=== PATIENT | male | born 1960 | race Caucasian/White ===

== ENCOUNTER → 2017-10-15 09:51 | Outpatient (CLI) | payer MEDICARE, MEDICAID, SELFPAY ==
[2017-10-15 11:49] LABS: ALB/GLOB Ratio 1.3 RATIO (0.9-2.4); AST(SGOT) 17 U/L (15-37); Alanine Aminotransfer ALT/SGPT 22 U/L (16-61); Albumin, Serum 3.9 g/dL (3.2-5.0); Alkaline Phosphatase 54 U/L (45-117); Anion Gap 5 (5-15); BUN 20 mg/dL (7-18); BUN/Creat Ratio 17.1 RATIO (10-20); Calcium,Total 9.9 mg/dL (8.5-10.1); Chloride 106 mmol/L (98-107); Creatinine, Serum 1.17 mg/dL (0.70-1.30); EST Glomerular Filtration Rate 69 mL/min (>60); Est Glom Filt Rate - Afr Amer 83 mL/min (>60); Glucose 107 mg/dL (74-106); Microalbumin:Creatinine Ratio 145.7 mg/g CRE (<30 mg/g CRE); Potassium 4.3 mmol/L (3.5-5.1); Protein, Total 6.9 g/dL (6.4-8.2); Sodium Level 139 mmol/L (136-145)
[2017-10-15 11:55] LABS: Hemoglobin A1c 7.8 % (4.2-6.3)
== END ==
PROVIDERS: Family Provider Family Medicine; PCP Family Medicine; Visit Provider Nurse Practitioner
DX: E11.9 Type 2 diabetes mellitus without complications (principal)
CPT/HCPCS: 36415; 80053; 82043; 82570; 83036

== ENCOUNTER → 2018-05-26 12:27 | Outpatient (CLI) | payer MEDICARE, MEDICAID, SELFPAY ==
[2018-05-26 11:24] VITALS: BMI 26.5
[2018-05-26 13:17] LABS: Hemoglobin A1c 7.4 % (4.2-6.3)
[2018-05-26 13:40] LABS: Cholesterol 153 mg/dL (200); Free T3 2.9 pg/mL (2.18-3.98); High Density Lipoprotein 59 mg/dL; T4 Free Direct 0.77 ng/dL (0.76-1.46); Triglycerides 89 mg/dL; Very Low Density Lipoprotein 18 mg/dL (5-40)
[2018-05-26 14:11] LABS: Microalbumin,Random Urine 59.9 mg/L (NO RANGE EST.); Microalbumin:Creatinine Ratio 77.4 mg/g CRE (<30 mg/g CRE)
--- OUTSIDE RECORDS SUMMARY | 2018-07-12 14:53 | XMS RPT_ITS ---
:1960 Author Organization OHIP Support Name Relationship Address Phone D Unavailable Unavailable Unavailable REY QUISPE Unavailable [address] + [place] [address] D Unavailable Unavailable Unavailable REY QUISPE Unavailable [address] + [place] [address] D Unavailable Unavailable Unavailable QUISPEREY Unavailable [address] + [place] [address] D Unavailable Unavailable Unavailable REY QUISPE Unavailable [address] + [place] [address] NOT GIVEN Unavailable Unavailable Unavailable MALIKREY SIERRAET Unavailable [address] + [place] [address] ONEIDA QUISPE Unavailable Unavailable Unavailable CAPRI VELEZ Unavailable Unavailable + D Unavailable Unavailable Unavailable REY QUISPE Unavailable [address] + [place] [address] NOT GIVEN Unavailable Unavailable Unavailable REY GANET Unavailable [address] + [place], [place] [id number] ONEIDA QUISPE Unavailable Unavailable Unavailable CAPRI VELEZ Unavailable Unavailable + D Unavailable Unavailable Unavailable REY QUISPE Unavailable [address] + [place] [address] D Unavailable Unavailable Unavailable REY QUISPE Unavailable [address] + [place] [address] D Unavailable Unavailable Unavailable REY QUISPE Unavailable [address] + [place] [address] Care Team Providers Name Role Phone Physician, No PCP Primary Care Unavailable LUAN GREEN Admitting Unavailable IGNACIO CABRALES Attending Unavailable JOVANNY RECINOS Attending Unavailable RECINOS, JOVANNY Primary Care Unavailable RECINOS, JOVANNY Attending Unavailable RECINOS, JOVANNY Primary Care Unavailable RECINOS, JOVANNY Attending Unavailable RECINOS, JOVANNY Primary Care Unavailable BATHINI, MATTEO Attending Unavailable RECINOS, JOVANNY Primary Care Unavailable BATHJOJO, MATTEO Attending Unavailable RECINOS, JOVANNY Primary Care Unavailable VACCARIELLO, CARLITO SELF Attending Unavailable Physician, PCP Unknown Primary Care Unavailable VACCARIELLO, CARLITO SELF Attending Unavailable SHERLY HERNANDEZ Admitting Unavailable MARY, SHERLY NOVA Attending Unavailable MARY, SHERLY NOVA Referring Unavailable Physician, No PCP Primary Care Unavailable KAYE GAUTHIER Attending Unavailable Physician, No PCP Primary Care Unavailable SHERLY HERNANDEZ Admitting Unavailable MARY, SHERLY NOVA Attending Unavailable MARY, SHERLY NOVA Referring Unavailable Physician, No PCP Primary Care Unavailable MARY, SHERLY NOVA Admitting Unavailable MARY, SHERLY NOVA Attending Unavailable MARY, SHERLY NOVA Referring Unavailable Physician, No PCP Primary Care Unavailable VACCTAYAELLO, CARLITO Admitting Unavailable VACCARIELLO, CARLITO Attending Unavailable VACCARIELLO, CARLITO Primary Care Unavailable VACCARIELLO, CARLITO Consulting Unavailable PROVIDER, UNKNOWN Consulting Unavailable PROVIDER, UNKNOWN Consulting Unavailable PROVIDER, UNKNOWN Consulting Unavailable LUIS E TONY DO Admitting Unavailable LUIS E TONY DO Attending Unavailable LUIS E TONY DO Primary Care Unavailable VACCARIELLO, CARLITO Consulting Unavailable VACCARIELLO, CARLITO Referring Unavailable PROVIDER, UNKNOWN Consulting Unavailable PROVIDER, UNKNOWN Consulting Unavailable PROVIDER, UNKNOWN Consulting Unavailable SHERLY HERNANDEZ Attending Unavailable RECINOS III, JOVANNY F Referring Unavailable SHERLY HERNANDEZ Attending Unavailable SELF, SELF Referring Unavailable Kaye Gauthier CHUCKING MACHINE OPERATOR-C Attending Unavailable Vaccariello, Carlito Referring Unavailable ShoKaye salazar CHUCKING MACHINE OPERATOR-C Attending Unavailable ShoKaye salazar CHUCKING MACHINE OPERATOR-C Referring Unavailable Vaccariello, Carlito Primary Care Unavailable Kaye Gauthier CHUCKING MACHINE OPERATOR-C Attending Unavailable Vaccariello, Carlito Referring Unavailable Kaye Gauthier CHUCKING MACHINE OPERATOR-C Attending Unavailable Vaccariello, Carlito Referring Unavailable ShoKaye salazar CHUCKING MACHINE OPERATOR-C Attending Unavailable ShoKaye salazar CHUCKING MACHINE OPERATOR-C Attending Unavailable Vaccariello, Carlito Referring Unavailable Vaccariello, Carlito Primary Care Unavailable Kaye Gauthier CHUCKING MACHINE OPERATOR-C Attending Unavailable Vaccariello, Carlito Primary Care Unavailable Kaye Gauthier CHUCKING MACHINE OPERATOR-C Attending Unavailable Vaccariello, Carlito Referring Unavailable Vaccariello, Carlito Primary Care Unavailable PROBLEMS PROBLEMS DATE TYPE CONDITION / CODE ATTENDING STATUS SOURCE 06/30/2018 Final Diagnosis TRAUMAT SUBDURAL MARY Bryce Jenners (Discharge) HEMOR W / [facility] S06.5X0D(ICD-10) Repository 06/30/2018 Final Diagnosis UNS SX SIGNS COG Bryce HERNANDEZmel (Discharge) FUNC / [facility] R41.9(ICD-10) Repository 06/30/2018 Final Diagnosis OTHER ABNORMALITIES MARY Bryce Jenners (Discharge) GAIT / [facility] R26.89(ICD-10) Repository 05/26/2018 Unknown E11.9 - Type 2 Kaye Gauthier Active Rhonda diabetes mellitus CHUCKING MACHINE OPERATOR-C [facility] complications / Repository E11.9(ICD-10) 05/26/2018 Unknown E10.65 - Type 1 ShookKaye Active Rhonda diabetes mellitus CHUCKING MACHINE OPERATOR-C [facility] / E10.65(ICD-10) Repository 04/09/2018 Admitting Unknown / KAYE GAUTHIER Active [facility]Unknown[facility] Repository 04/09/2018 Final Diagnosis TYPE 2 DM WITHOUT SHOKAYE SALAZAR Active Felicity Rodriguez (Discharge) COMPLI / Health System E11.9(ICD-10) Repository 03/09/2018 Admitting Follow-up / 145() Bryce HERNANDEZ [facility] diagnosis [facility] PROCEDURES PROCEDURES No Procedure Records FoundRESULTS RESULTS ENDOCRINOLOGY VISIT Observed: 07/01/2018 Status: F Source: [place] REPORT 12:40 PM [facility] REPOSITORY [facility] [address] [place] [address]. [address] [place] [address] OFFICE VISIT Date of Service: 07/01/18 MR#: [id number] Acct: [id number] Name: YUNIOR QUISPE Rep #: [id number] : 1960 Provider: Kaye Gauthier NP Age/Sex: 57/M Location: [facility] [place] Status: Signed HPI History of present illness Yunior Quispe is a 57 year old male who presents for follow up of diabetes type 1. Diagnosed at age 7. Has initiated insulin pump therapy. 670g. Patient reports BG improved. Did work on carb counting and using bolus wizard for all insulin doses. He feels BG have improved since last visit. Did have a couple of low BG but not severe and was able to treat himself. Time of Day Basal Rate 12m 1.05 7am 1.10 11am 1.20 2p 1.10 6p 1.20 10p 1.05 I/C 8 ISF 30 At time of visit: -Pt denies symptoms of hypertensive emergency (CP,SOB,CURRIE, or blurred vision) and hypotension(dizziness or lightheadedness) -Pt denies symptoms of hypoglycemia ( sweaty, confusion, anxiety, tremor, hunger, palpitations) and hyperglycemia ( polydipsia, polyuria) -Pt denies potential medication adverse effect with exception of erectile dysfunction. Hypoglycemia Aware of hypoglycemia: When awake Able to self treat low BG: Yes Frequent low Blood sugar: afternoons around 4-5pm Has supply of glucagon: Yes Diet Healthy Eats three meals daily and occ snacks Does carb count. SMBG am 70 -[id number] 12n 53-200 5pm 62-200 9p 94-200 Exam Const General: comfortable, no acute distress, well hydrated Nutritional Appearance: average body habitus Orientation: oriented x3 HENMT Head: normal to inspection, atraumatic Ears: hearing grossly normal bilaterally Nose: no nasal discharge Mouth: oral mucosae normal, moist mucous membranes Teeth and gingiva: dentition normal Eyes General: appearance normal, both eyes and all related structures Conjunctivae: conjunctivae normal Sclera: sclerae normal Pupils: PERRL Neck Neck: normal visual inspection Neck mass: No Chest Chest palpation AND inspection: deferred Resp Effort AND Inspection: normal respiratory effort, able to speak in complete sentences, symmetric chest movement Auscultation: Bilateral: Clear to Auscultation Cardio Rate: regular rate Rhythm: regular rhythm Heart Sounds: S1 normal, S2 normal GI Inspection: normal to inspection Auscultation: normal bowel sounds Palpation: soft, no guarding Musc Thoracic/Lumbar Spine: thoracic and lumbar spine normal to inspection Skin General: no rashes or lesions noted Wounds: no wounds Diabetic Foot Pulses: L dorsalis pedis pulse: normal Monofilament test: Left foot: abnormal, Right foot: abnormal Neuro General: gait normal Cognition: normal cognition Speech: speech normal Motor: muscle tone normal throughout Extrem General: full ROM, normal to inspection, pedal edema Psych Appearance: grossly normal Mood: congruent mood Affect: normal affect Speech and Movement: speech and movement normal Attitude: cooperative Thought Process: normal Thought Content: normal Judgment: good Type: type 1, insulin-requiring Glucose control symptoms: Reports daytime hypoglycemia Weight and fatigue symptoms: Denies snoring Cardiopulmonary symptoms: Denies chest pain at rest, dyspnea on exertion, lightheadedness or myalgias GI symptoms: Reports nausea/dyspepsia; denies constipation, diarrhea or vomiting Skin and extremity symptoms: Denies erectile dysfunction Other symptoms: Denies blurry vision or change in vision Pertinent visit history: Denies recent visit to ER, recent hospital admission or recent 911 calls Self monitoring: Yes Dietary compliance: Diabetes: good Diabetes education in past year: Yes Sick day education - understands ketone testing: Yes Physical activity: regular Intake Vital Signs07/01/18 Body Mass Index (BMI) 26.5 Intake Visit Reasons: Diabetes follow-up Patient Account Specialist Required: No Accompanied by: Self Allergies acetaminophen [From Vicodin] Allergy (Severe, Verified 07/01/18 09:13) Unknown hydrocodone [From Vicodin] Allergy (Severe, Verified 07/01/18 09:13) Unknown Medications carvedilol 6.25 mg tablet 6.25 mg PO QDAY tab 06/25/17 [History Confirmed 07/01/18] chromium picolinate 1,000 mcg tablet 1,000 mcg PO QDAY tab 06/25/17 [History Confirmed 07/01/18] hydrochlorothiazide 12.5 mg capsule 12.5 mg PO QDAY 07/02/17 [History Confirmed 07/01/18] losartan 100 mg tablet 100 mg PO QDAY 07/02/17 [History Confirmed 07/01/18] omeprazole magnesium 20 mg tablet,delayed release 20 mg PO QDAY tab 07/02/17 [History Confirmed 07/01/18] ranitidine 150 mg capsule 150 mg PO BID cap 07/02/17 [History Confirmed 07/01/18] blood sugar diagnostic strips See Dose Instructions .ROUTE .MEDSUPPLY #240 ea 05/20/18 [Rx Confirmed 07/01/18] insulin aspart U- 100 100 unit/mL subcutaneous solution See Rx Instructions SC DAILY #30 ml 05/20/18 [Rx Confirmed 07/01/18] Nurse's Note: blood sugars : low : 45 high : 411 [facility] Medical History Back problem (Acute) Carpal tunnel syndrome (Acute) Diabetes type 1, controlled (Acute) Fall (Acute) Head injury (Acute) Kidney stones (Acute) Low calcium levels (Acute) Neuropathy (Acute) HTN (hypertension) (Chronic) Surgical History H/O colonoscopy (Acute) Social History Smoking Status: Former smoker second hand exposure: No alcohol intake: current substance use type: does not use ROS Const Constitutional: No anorexia, body ache, chills, fatigue, fever(s), frequent falls, decreased energy, malaise, night sweats, weakness, weight change, sleep problems, abnormal sleep pattern, change in appetite, other, headache(s), snoring or excessive sweating Eyes Eyes: No blurry vision, change in vision, double vision, discharge, dry eyes, bulging eyes, floaters, visual disturbances, eye pain, light sensitivity, spots in vision, tunnel vision or other ENT ENT: No abnormal hearing, ear pain, ear discharge, ear pressure, hearing loss, tinnitus, dizziness/vertigo, balance problems, nosebleed/epistaxis, nasal congestion, nasal obstruction, nose pain, sinus pressure, sinus pain, nasal discharge, post nasal drip, headache(s), facial pain, dental pain, dry mouth, bad breath, hoarseness, lip swelling, mouth lesions, mouth pain, sore throat, tongue swelling, throat swelling, other, difficulty swallowing or neck pain Resp Respiratory: No cough, change in phlegm color, chest congestion, excessive phlegm production, hemoptysis, pain on inspiration, shortness of breath, pain with cough, snoring, stridor, wheezing or other Cardio Cardiology: No chest pain at rest, chest pain with exertion, leg pain with exertion, excessive sweating, shortness of breath, dyspnea on exertion, generalized swelling, irregular heart rhythm, lightheadedness, orthopnea, radiating jaw, neck or arm pain, fast heart rate, slow heart rate, palpitations or other Gastro GI: Positive for nausea/dyspepsia; no abdominal pain, belching, bloating, change in bowel habits, change in stool character, coffee ground emesis, constipation, cramping, diarrhea, heartburn, difficulty swallowing, feeling full early, excessive flatus, incontinent of stools, Vomiting blood/hematemesis, blood in stool, loose stools, Black,tarry stools, pain with swallowing, vomiting or other Genitourinary Male: No difficulty urinating, burning urination, painful urination, urinary incontinence, urinary frequency, urinary urgency, urinary hesitancy, urinary retention, blood in urine, Frequent nighttime urination/ nocturia, post void dribbling, suprapubic fullness, side pain, sexual problems, genital lesions, genital itching, erectile dysfunction, penile discharge, difficulty with ejaculations, blood in semen, scrotal swelling, testicle lump, testicle pain or other Musc Musculoskeletal: No abnormal walking, joint pain, back pain, deformity, joint swelling, limited range of motion, loss of height, muscle cramps, muscle weakness, decreased muscle mass, body aches, neck pain, numbness, radiating pain into limb, stiffness, tingling or other Skin Skin: No acne, hair loss, change in hair, nail changes, boil, change in skin color, dry skin, redness, excessive hair growth, yellowing of the skin, lesions, itching, rash, skin pain, skin ulcer, sores, skin swelling, wounds or other Breast Breast: No other Neuro Neurology: No frequent falls, weakness, visual disturbances, abnormal hearing, headache(s), abnormal walking, numbness or tingling Psych Psychiatric: No abnormal sleep pattern, No change in appetite Endo Endocrine: No fatigue, other or excessive sweating Aller/Imm Allergy/Immunologic: No lip swelling, tongue swelling, throat swelling, wheezing or itchy eyes Assessment AND Plan 1. Diabetes mellitus E11.9 Plan Type 1 diabetes mellitus with microalbuminuria Plan Patient feels he is doing well with the insulin pump therapy. Is able to utilize without issue. He is currently checking in pairs. He does report he is not adding any insulin into the pump when he determines he wants more insulin than the pump is giving.He is not telling the pump erronous information Since the patient is givng the pump accurate information it is obvious that lunch is being over bolused. Will make change to avoid low BG. Also has a drop in BG during late night hours when he snacks and takes bolus for the carbs. Spent time with patient to review I/C ratios as well as ISF so that he understands how these numbers are determined and what makes it important to adjust. Patient ask to put true data into his pump when giving insulin. Renal function good A1c 7.4 Chol controlled. Patient Instructions BG before meals and 2 hours post meal Check BG with any low BG you have for review later. Carb count needs to be specific. Patient Instructions Sumeet made I/C ratio 12m=10 7am=8 11am=10 4pm=8 8pm=10 Continue intensive BG monitoring. Continue to count carbs carefully. Monitor new settings for adequate coverage. Plan Detail Additional Comments 1. Please schedule follow up in 6 weeks. 2. Lab work one week before appointment. 3. Discussed importance of regular exercise and recommend starting or continuing a regular exercise program for good health. 4. The patient was encouraged to lose weight for good health 5. The importance of monitoring blood sugar regularly was reviewed. 6. The importance of monitoring the HBA1c level regularly was reviewed. 7. The importance of prper foot care and regularly checking feet to prevent sores and loss of limbs was reviewed. 8. The importance of keeping BP at or below 130/80 to prevent stroke, heart attacks, kidney failure, blindness was reviewed. Spent approximately 30 minutes with patient with over 50% of time spent in discussion and counseling regarding medication adjustment, symptoms and treatment of hypoglycemia, diet adherence, and checking BG before driving. Coding Level of Care Code Off vis,est,level 4 Diagnoses Diabetes mellitus E11.9 07/01/18 1240 <Electronically signed by Kaye CASEY> Date Kaye CASEY Cosigner Signature: Date (if applicable) CC: ENDOCRINOLOGY VISIT Observed: 06/18/2018 Status: F Source: [place] REPORT 5:01 AM [facility] REPOSITORY [facility] [address] [place] [address] OFFICE VISIT Date of Service: 06/15/18 MR#: [id number] Acct: [id number] Name: YUNIOR QUISPE Rep #: [id number] : 1960 Provider: Kaye Gauthier NP Age/Sex: 57/M Location: [facility] [place] Status: Signed HPI History of present illness Yunior Quispe is a 57 year old male who presents for follow up of diabetes type 1. Diagnosed at age 7. Has initiated insulin pump therapy. 670g with sensor. Patient reports BG improved. Time of Day Basal Rate 12m 1.05 7am 1.10 11am 1.20 2p 1.10 6p 1.20 10p 1.05 I/C 8 ISF 30 At time of visit: -Pt denies symptoms of hypertensive emergency (CP,SOB,CURRIE, or blurred vision) and hypotension(dizziness or lightheadedness) -Pt denies symptoms of hypoglycemia ( sweaty, confusion, anxiety, tremor, hunger, palpitations) and hyperglycemia ( polydipsia, polyuria) -Pt denies potential medication adverse effect with exception of erectile dysfunction. Hypoglycemia Aware of hypoglycemia: When awake Able to self treat low BG: Yes Frequent low Blood sugar: afternoons around 4-5pm Has supply of glucagon: Yes Diet Healthy Eats three meals daily and occ snacks Does carb count. SMBG am 63-200 12n 87-200 5pm 56-200 9p 80-200 Exam Const General: comfortable, no acute distress, well hydrated Nutritional Appearance: average body habitus Orientation: oriented x3 HENMT Head: normal to inspection, atraumatic Ears: hearing grossly normal bilaterally Nose: no nasal discharge Mouth: oral mucosae normal, moist mucous membranes Teeth and gingiva: dentition normal Eyes General: appearance normal, both eyes and all related structures Conjunctivae: conjunctivae normal Sclera: sclerae normal Pupils: PERRL Neck Neck: normal visual inspection Neck mass: No Chest Chest palpation AND inspection: deferred Resp Effort AND Inspection: normal respiratory effort, able to speak in complete sentences, symmetric chest movement Auscultation: Bilateral: Clear to Auscultation Cardio Rate: regular rate Rhythm: regular rhythm Heart Sounds: S1 normal, S2 normal GI Inspection: normal to inspection Auscultation: normal bowel sounds Palpation: soft, no guarding Musc Thoracic/Lumbar Spine: thoracic and lumbar spine normal to inspection Skin General: no rashes or lesions noted Wounds: no wounds Diabetic Foot Pulses: L dorsalis pedis pulse: normal Monofilament test: Left foot: abnormal, Right foot: abnormal Neuro General: gait normal Cognition: normal cognition Speech: speech normal Motor: muscle tone normal throughout Extrem General: full ROM, normal to inspection, pedal edema Psych Appearance: grossly normal Mood: congruent mood Affect: normal affect Speech and Movement: speech and movement normal Attitude: cooperative Thought Process: normal Thought Content: normal Judgment: good Weight and fatigue symptoms: Denies snoring Cardiopulmonary symptoms: Reports lightheadedness; denies chest pain at rest, dyspnea on exertion or myalgias GI symptoms: Denies constipation, diarrhea, nausea/dyspepsia or vomiting Skin and extremity symptoms: Denies erectile dysfunction Other symptoms: Reports change in vision; denies blurry vision Type: type 1, insulin-requiring Glucose control symptoms: Reports hypoglycemic with activity and daytime hypoglycemia Weight and fatigue symptoms: Denies snoring Cardiopulmonary symptoms: Denies chest pain at rest, dyspnea on exertion, lightheadedness or myalgias GI symptoms: Denies constipation, diarrhea, nausea/dyspepsia or vomiting Skin and extremity symptoms: Denies erectile dysfunction Other symptoms: Reports change in vision; denies blurry vision Pertinent visit history: Denies recent visit to ER, recent hospital admission or recent DKA Self monitoring: Yes Percentage of fasting blood glucose within goal: 25%-50% of the time Diabetes education in past year: Yes Glucose testing: demonstrates correct use of meter day education - understands ketone testing: Yes Physical activity: regular Intake Vital Signs06/15/18 Body Mass Index (BMI) 26.5 Intake Visit Reasons: Diabetes follow-up Patient Account Specialist Required: No Accompanied by: Self Allergies acetaminophen [From Vicodin] Allergy (Severe, Verified 06/15/18 08:04) Unknown hydrocodone [From Vicodin] Allergy (Severe, Verified 06/15/18 08:04) Unknown Medications carvedilol 6.25 mg tablet 6.25 mg PO QDAY tab 06/25/17 [History Confirmed 06/15/18] chromium picolinate 1,000 mcg tablet 1,000 mcg PO QDAY tab 06/25/17 [History Confirmed 06/15/18] hydrochlorothiazide 12.5 mg capsule 12.5 mg PO QDAY 07/02/17 [History Confirmed 06/15/18] losartan 100 mg tablet 100 mg PO QDAY 07/02/17 [History Confirmed 06/15/18] omeprazole magnesium 20 mg tablet,delayed release 20 mg PO QDAY tab 07/02/17 [History Confirmed 06/15/18] ranitidine 150 mg capsule 150 mg PO BID cap 07/02/17 [History Confirmed 06/15/18] blood sugar diagnostic strips See Dose Instructions .ROUTE .MEDSUPPLY #240 ea 05/20/18 [Rx Confirmed 06/15/18] insulin aspart U- 100 100 unit/mL subcutaneous solution See Rx Instructions SC DAILY #30 ml 05/20/18 [Rx Confirmed 06/15/18] Nurse's Note: blood sugars : low : 40 high : 420 [facility] Medical History Back problem (Acute) Carpal tunnel syndrome (Acute) Diabetes type 1, controlled (Acute) Fall (Acute) Head injury (Acute) Kidney stones (Acute) Low calcium levels (Acute) Neuropathy (Acute) HTN (hypertension) (Chronic) Surgical History H/O colonoscopy (Acute) Social History Smoking Status: Former smoker second hand exposure: No alcohol intake: current substance use type: does not use ROS Const Constitutional: No anorexia, body ache, chills, fatigue, fever(s), frequent falls, decreased energy, malaise, night sweats, weakness, weight change, sleep problems, abnormal sleep pattern, change in appetite, other, headache(s), snoring or excessive sweating Eyes Eyes: Positive for change in vision; no blurry vision, double vision, discharge, dry eyes, bulging eyes, floaters, visual disturbances, eye pain, light sensitivity, spots in vision, tunnel vision or other ENT ENT: No abnormal hearing, ear pain, ear discharge, ear pressure, hearing loss, tinnitus, dizziness/vertigo, balance problems, nosebleed/epistaxis, nasal congestion, nasal obstruction, nose pain, sinus pressure, sinus pain, nasal discharge, post nasal drip, headache(s), facial pain, dental pain, dry mouth, bad breath, hoarseness, lip swelling, mouth lesions, mouth pain, sore throat, tongue swelling, throat swelling, other, difficulty swallowing or neck pain Resp Respiratory: No cough, change in phlegm color, chest congestion, excessive phlegm production, hemoptysis, pain on inspiration, shortness of breath, pain with cough, snoring, stridor, wheezing or other Cardio Cardiology: Positive for generalized swelling; no chest pain at rest, chest pain with exertion, leg pain with exertion, excessive sweating, shortness of breath, dyspnea on exertion, irregular heart rhythm, lightheadedness, orthopnea, radiating jaw, neck or arm pain, fast heart rate, slow heart rate, palpitations or other Gastro GI: No abdominal pain, belching, bloating, change in bowel habits, change in stool character, coffee ground emesis, constipation, cramping, diarrhea, heartburn, difficulty swallowing, feeling full early, excessive flatus, incontinent of stools, Vomiting blood/hematemesis, blood in stool, loose stools, Black,tarry stools, nausea/dyspepsia, pain with swallowing, vomiting or other Genitourinary Male: No difficulty urinating, burning urination, painful urination, urinary incontinence, urinary frequency, urinary urgency, urinary hesitancy, urinary retention, blood in urine, Frequent nighttime urination/ nocturia, post void dribbling, suprapubic fullness, side pain, sexual problems, genital lesions, genital itching, erectile dysfunction, penile discharge, difficulty with ejaculations, blood in semen, scrotal swelling, testicle lump, testicle pain or other Musc Musculoskeletal: No abnormal walking, joint pain, back pain, deformity, joint swelling, limited range of motion, loss of height, muscle cramps, muscle weakness, decreased muscle mass, body aches, neck pain, numbness, radiating pain into limb, stiffness, tingling or other Skin Skin: No acne, hair loss, change in hair, nail changes, boil, change in skin color, dry skin, redness, excessive hair growth, yellowing of the skin, lesions, itching, rash, skin pain, skin ulcer, sores, skin swelling, wounds or other Breast Breast: No other Neuro Neurology: No frequent falls, weakness, visual disturbances, abnormal hearing, headache(s), abnormal walking, numbness or tingling Psych Psychiatric: No abnormal sleep pattern, No change in appetite Endo Endocrine: No fatigue, other or excessive sweating Aller/Imm Allergy/Immunologic: No lip swelling, tongue swelling, throat swelling, wheezing or itchy eyes Assessment AND Plan 1. Type 1 diabetes mellitus with microalbuminuria E10.29 Plan Patient feels he is doing well with the insulin pump therapy. Is able to utilize without issue. He is checking his Bg but not checking in pairs. He does report he is making some independent entries into the pump when he determines he wants more insulin than the pump is giving. He also will take small amount of insulin if he feels BG is too high. He also is adding carbs into his pump that he has not eaten if he feels he needs more insulin than recommended by the pump. Patient is instructed that he needs to discontinue the noted behavior. If he feels any of his settinga are too high or too low we will adjust after reviewing his data but the john must be true data. He verbalizes understanding Spent time with patient to review I/C ratios as well as ISF so that he understands how these numbers are determined and what makes it important to adjust. Patient ask to put true data into his pump when giving insulin. Renal function good A1c 7.4 Chol controlled. Patient Instructions BG before meals and 2 hours post meal Check BG with any low BG you have for review later. Carb count needs to be specific. Plan Detail Additional Comments 1. Please schedule follow up in 3 months. 2. Lab work one week before appointment. 3. Discussed importance of regular exercise and recommend starting or continuing a regular exercise program for good health. 4. The patient was encouraged to lose weight for good health 5. The importance of monitoring blood sugar regularly was reviewed. 6. The importance of monitoring the HBA1c level regularly was reviewed. 7. The importance of prper foot care and regularly checking feet to prevent sores and loss of limbs was reviewed. 8. The importance of keeping BP at or below 130/80 to prevent stroke, heart attacks, kidney failure, blindness was reviewed. Spent approximately 30 minutes with patient with over 50% of time spent in discussion and counseling regarding medication adjustment, symptoms and treatment of hypoglycemia, diet adherence, and checking BG before driving. 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 Diabetes mellitus type: type 1 Diabetes mellitus complication detail: with microalbuminuria Diabetes mellitus complication status: with kidney complications 06/18/18 0501 <Electronically signed by Kaye Gauthier CHUCKING MACHINE OPERATORJeanineC> Date Kaye CASEY Cosigner Signature: Date (if applicable) CC: ENDOCRINOLOGY VISIT Observed: 05/26/2018 Status: F Source: [place] REPORT 9:07 PM [facility] REPOSITORY [facility] [address] [place] [address] OFFICE VISIT Date of Service: 05/26/18 MR#: [id number] Acct: [id number] Name: YUNIOR QUISPE Rep #: [id number] : 1960 Provider: Kaye Gauthier NP Age/Sex: 57/M Location: [facility] [place] Status: Signed HPI History of present illness Yunior Quispe is a 57 year old male who presents for follow up of diabetes type 1. Diagnosed at age 7. Continues on Novoloin 70/30 twice daily; 23 units in am and 20 units in pm. Has sliding scale humalog for ISF. Last visit Hospital stay due to fall down his basement stairs which resulted in brain bleed. Is home after several days in hospital. Is getting home visits and therapy. is asking to place patient on an insulin pump as he is having what seems like more frequent low BG readings to her and she is worried. Patient has recieved his insulin pump and has been instructed on insertion and pump operation. He has learned to carb count. He will be placed on insulin pump tomorrow and followed by field sales trainer for a period of time. At time of visit: -Pt denies symptoms of hypertensive emergency (CP,SOB,CURRIE, or blurred vision) and hypotension(dizziness or lightheadedness) -Pt denies symptoms of hypoglycemia ( sweaty, confusion, anxiety, tremor, hunger, palpitations) and hyperglycemia ( polydipsia, polyuria) -Pt denies potential medication adverse effect with exception of erectile dysfunction. Hypoglycemia Aware of hypoglycemia: When awake Able to self treat low BG: Yes Frequent low Blood sugar: afternoons around 4-5pm Has supply of glucagon: Yes Diet Healthy Eats three meals daily and occ snacks Does carb count. Exam Const General: comfortable, no acute distress, well hydrated Nutritional Appearance: average body habitus Orientation: oriented x3 HENMT Head: normal to inspection, atraumatic Ears: hearing grossly normal bilaterally Nose: no nasal discharge Mouth: oral mucosae normal, moist mucous membranes Teeth and gingiva: dentition normal Eyes General: appearance normal, both eyes and all related structures Conjunctivae: conjunctivae normal Sclera: sclerae normal Pupils: PERRL Neck Neck: normal visual inspection Neck mass: No Chest Chest palpation AND inspection: deferred Resp Effort AND Inspection: normal respiratory effort, able to speak in complete sentences, symmetric chest movement Auscultation: Bilateral: Clear to Auscultation Cardio Rate: regular rate Rhythm: regular rhythm Heart Sounds: S1 normal, S2 normal GI Inspection: normal to inspection Auscultation: normal bowel sounds Palpation: soft, no guarding Musc Thoracic/Lumbar Spine: thoracic and lumbar spine normal to inspection Skin General: no rashes or lesions noted Wounds: no wounds Diabetic Foot Pulses: L dorsalis pedis pulse: normal Monofilament test: Left foot: abnormal, Right foot: abnormal Neuro General: gait normal Cognition: normal cognition Speech: speech normal Motor: muscle tone normal throughout Extrem General: full ROM, normal to inspection, pedal edema Psych Appearance: grossly normal Mood: congruent mood Affect: normal affect Speech and Movement: speech and movement normal Attitude: cooperative Thought Process: normal Thought Content: normal Judgment: good Weight and fatigue symptoms: Denies snoring Cardiopulmonary symptoms: Reports lightheadedness; denies chest pain at rest, dyspnea on exertion or myalgias GI symptoms: Denies constipation, diarrhea, nausea/dyspepsia or vomiting Skin and extremity symptoms: Denies erectile dysfunction Other symptoms: Reports change in vision; denies blurry vision Intake Vital Signs05/26/18 Height 5 ft 8 in 05/26/18 Weight: 174 lb 8 oz 05/26/18 Body Mass Index (BMI) 26.5 05/26/18 Blood Pressure 143/81 H 05/26/18 Blood Pressure Location Lt popliteal 05/26/18 Blood Pressure Position Sitting Intake Visit Reasons: Diabetes follow-up Patient Account Specialist Required: No Accompanied by: Self Allergies acetaminophen [From Vicodin] Allergy (Severe, Verified 05/26/18 11:21) Unknown hydrocodone [From Vicodin] Allergy (Severe, Verified 05/26/18 11:21) Unknown Medications carvedilol 6.25 mg tablet 6.25 mg PO QDAY tab 06/25/17 [History Confirmed 05/26/18] chromium picolinate 1,000 mcg tablet 1,000 mcg PO QDAY tab 06/25/17 [History Confirmed 05/26/18] hydrochlorothiazide 12.5 mg capsule 12.5 mg PO QDAY 07/02/17 [History Confirmed 05/26/18] losartan 100 mg tablet 100 mg PO QDAY 07/02/17 [History Confirmed 05/26/18] omeprazole magnesium 20 mg tablet,delayed release 20 mg PO QDAY tab 07/02/17 [History Confirmed 05/26/18] ranitidine 150 mg capsule 150 mg PO BID cap 07/02/17 [History Confirmed 05/26/18] blood sugar diagnostic strips See Dose Instructions .ROUTE .MEDSUPPLY #240 ea 05/20/18 [Rx Confirmed 05/26/18] insulin aspart U- 100 100 unit/mL subcutaneous solution See Rx Instructions SC DAILY #30 ml 05/20/18 [Rx Confirmed 05/26/18] Nurse's Note: blood sugars : low : high : [facility] Medical History Back problem (Acute) Carpal tunnel syndrome (Acute) Diabetes type 1, controlled (Acute) Fall (Acute) Head injury (Acute) Kidney stones (Acute) Low calcium levels (Acute) Neuropathy (Acute) HTN (hypertension) (Chronic) Surgical History H/O colonoscopy (Acute) Social History Smoking Status: Former smoker second hand exposure: No alcohol intake: current substance use type: does not use ROS Const Constitutional: Positive for night sweats and change in appetite; no anorexia, body ache, chills, fatigue, fever(s), frequent falls, decreased energy, malaise, weakness, weight change, sleep problems, abnormal sleep pattern, other, headache(s), snoring or excessive sweating Eyes Eyes: Positive for change in vision; no blurry vision, double vision, discharge, dry eyes, bulging eyes, floaters, visual disturbances, eye pain, light sensitivity, spots in vision, tunnel vision or other ENT ENT: Positive for dizziness/vertigo; no abnormal hearing, ear pain, ear discharge, ear pressure, hearing loss, tinnitus, balance problems, nosebleed/epistaxis, nasal congestion, nasal obstruction, nose pain, sinus pressure, sinus pain, nasal discharge, post nasal drip, headache(s), facial pain, dental pain, dry mouth, bad breath, hoarseness, lip swelling, mouth lesions, mouth pain, sore throat, tongue swelling, throat swelling, other, difficulty swallowing or neck pain Resp Respiratory: No cough, change in phlegm color, chest congestion, excessive phlegm production, hemoptysis, pain on inspiration, shortness of breath, pain with cough, snoring, stridor, wheezing or other Cardio Cardiology: Positive for lightheadedness; no chest pain at rest, chest pain with exertion, leg pain with exertion, excessive sweating, shortness of breath, dyspnea on exertion, generalized swelling, irregular heart rhythm, orthopnea, radiating jaw, neck or arm pain, fast heart rate, slow heart rate, palpitations or other Gastro GI: No abdominal pain, belching, bloating, change in bowel habits, change in stool character, coffee ground emesis, constipation, cramping, diarrhea, heartburn, difficulty swallowing, feeling full early, excessive flatus, incontinent of stools, Vomiting blood/hematemesis, blood in stool, loose stools, Black,tarry stools, nausea/dyspepsia, pain with swallowing, vomiting or other Genitourinary Male: No difficulty urinating, burning urination, painful urination, urinary incontinence, urinary frequency, urinary urgency, urinary hesitancy, urinary retention, blood in urine, Frequent nighttime urination/ nocturia, post void dribbling, suprapubic fullness, side pain, sexual problems, genital lesions, genital itching, erectile dysfunction, penile discharge, difficulty with ejaculations, blood in semen, scrotal swelling, testicle lump, testicle pain or other Musc Musculoskeletal: No abnormal walking, joint pain, back pain, deformity, joint swelling, limited range of motion, loss of height, muscle cramps, muscle weakness, decreased muscle mass, body aches, neck pain, numbness, radiating pain into limb, stiffness, tingling or other Skin Skin: No acne, hair loss, change in hair, nail changes, boil, change in skin color, dry skin, redness, excessive hair growth, yellowing of the skin, lesions, itching, rash, skin pain, skin ulcer, sores, skin swelling, wounds or other Breast Breast: No other Neuro Neurology: No frequent falls, weakness, visual disturbances, abnormal hearing, headache(s), abnormal walking, numbness or tingling Psych Psychiatric: No abnormal sleep pattern, Positive for change in appetite Endo Endocrine: No fatigue, other or excessive sweating Aller/Imm Allergy/Immunologic: No lip swelling, tongue swelling, throat swelling, wheezing or itchy eyes Assessment AND Plan 1. 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 Discussed insulin timing and when to correct and when it is too soon after last dose of insulin to correct. He is learning carb counting and had questions so we reviewed carb counting again. Pump start tomorrow. Will RTC 2-3 weeks. Labs due Plan Detail Other Orders Orders: Additional Comments 1. Please schedule follow up in 3 weeks 2. Lab work one week before appointment. 3. Discussed importance of regular exercise and recommend starting or continuing a regular exercise program for good health. 4. The patient was encouraged to lose weight for good health 5. The importance of monitoring blood sugar regularly was reviewed. 6. The importance of monitoring the HBA1c level regularly was reviewed. 7. The importance of proper foot care and regularly checking feet to prevent sores and loss of limbs was reviewed. 8. The importance of keeping BP at or below 130/80 to prevent stroke, heart attacks, kidney failure, blindness was reviewed. Spent approximately 30 minutes with patient with over 50% of time spent in discussion and counseling regarding medication adjustment, symptoms and treatment of hypoglycemia, diet adherence, and checking BG before driving. 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 Diabetes mellitus type: type 1 Diabetes mellitus complication detail: with microalbuminuria Diabetes mellitus complication status: with kidney complications 05/26/182106 <Electronically signed by Kaye CASEY> Date Kaye CASEY Cosigner Signature: Date (if applicable) CC: HEMOGLOBIN A1C Collected: 05/26/2018 Status: F Source: [place] 12:38 PM [facility] REPOSITORY TYPE CODE TESTS RESULT OUT OF RANGE REFERENCE UNITS LAB L501.9985 4.2-6.3 % High HGB A1C 7.4 Performed By: #### L501.9985 #### [facility] [address] [place], [place], [address] LIPID PROFILE Collected: 05/26/2018 Status: F Source: [place] 12:38 PM [facility] REPOSITORY TYPE CODE TESTS RESULT OUT OF RANGE REFERENCE UNITS LAB L501.4900 200 mg/dL Normal CHOL 153 Result Comment: <200 mg/dL Desirable 200-240 mg/dL Borderline >240 mg/dL High Risk LAB L501.5000 mg/dL Normal TRIG 89 Result Comment: The drugs N-Acetylcysteine and Metamizole may falsely depress this assay. Serum Triglycerides Reference Interval Normal <150 mg/dL Borderline high 150 - 199 mg/dL High 200 - 499 mg/dL Very High > or = 500 mg/dL LAB L501.6400 mg/dL Normal HDL 59 Result Comment: The drugs N-Acetylcysteine and Metamizole may falsely depress this assay. Reference Range HDL <40 mg/dL Low HDL Cholesterol HDL >or= 60 mg/dL High HDL Cholesterol LAB L501.6500 0-130 mg/dL Normal LDL 76 LAB L501.6600 5-40 mg/dL Normal VLDL 18 Performed By: #### L500.4100, L501.06487, L506.0400 #### [facility] [address] [place], [place], [address] FREE T3 Collected: 05/26/2018 Status: F Source: [place] 12:38 PM [facility] REPOSITORY TYPE CODE TESTS RESULT OUT OF RANGE REFERENCE UNITS LAB L501.42112 2.18-3.98 pg/mL Normal FREE T3 2.9 Performed By: #### L500.4100, L501.24594, L506.0400 #### [facility] [address] [place], [place], [address] T4 FREE DIRECT Collected: 05/26/2018 Status: F Source: [place] 12:38 PM [facility] REPOSITORY TYPE CODE TESTS RESULT OUT OF RANGE REFERENCE UNITS LAB L506.0400 0.76-1.46 ng/dL Normal T4 FREE 0.77 DIRECT Performed By: #### L500.4100, L501.56982, L506.0400 #### [facility] [address] [place], [address] MICROALB:CREAT Collected: 05/26/2018 Status: F Source: [place] RATIO,[facility] UR 12:38 PM [facility] REPOSITORY TYPE CODE TESTS RESULT OUT OF RANGE REFERENCE UNITS LAB L501.1200 NO RANGE EST. mg/dL Normal UR CREAT 77.40 LAB L502.0500 NO RANGE EST. mg/L Normal 59.9 MICROALBUMIN ,UR LAB L502.0600 <30 mg/g CRE mg/g CRE High 77.4 MALB:CREAT Performed By: #### L502.0250 #### [facility] [address] [place], [address] CHEST 1 VIEW Observed: 05/08/2018 Status: F Source: [facility] 6:58 AM [place] [address] Patient: YUNIOR QUISPE Phone#: : 1960 Age: 57 Gender: M Pt. Type: ER Account: [id number] Location: [facility] Ordering: LUIS E TONY Exam Date: 05/08/2018/6:43 Family Phys: CARLITO DAVIS Charge Code: [id number] Physician: [place] Order #: [id number] DLP Dose#: PROCEDURE: X-RAY CHEST 1 VIEW COMPARISON: None. INDICATIONS: Pneumonia FINDINGS: LUNGS: Left perihilar infiltrate is present. There is streaky infiltrate inferior to the right hilum. VASCULATURE: Normal. Unremarkable pulmonary vasculature. CARDIAC: Normal. No cardiac silhouette abnormality or cardiomegaly. MEDIASTINUM: Normal. No visible mass or adenopathy. PLEURA: Normal. No effusion or pleural thickening. BONES: Normal. No fracture or visible bony lesion. OTHER: Negative. CONCLUSION: 1. Bilateral perihilar infiltrates greater on the left than the right. Dictated by: Johanna Mueller MD on 05/08/2018 at 8:15 Approved by: Johanna Mueller MD on 05/08/2018 at 8:15 CT BRAIN W/O CONTRAST Observed: 05/08/2018 Status: F Source: [facility] 6:58 AM [place] [address] Patient: YUNIOR QUISPE Phone#: : 1960 Age: 57 Gender: M Pt. Type: ER Account: [id number] Location: [facility] Ordering: LUIS E TONY Exam Date: 05/08/2018/6:35 Family Phys: CARLITO DAVIS Charge Code: [id number] Physician: Otter Tail Order #: [id number] DLP Dose#: [id number] PROCEDURE: CT BRAIN WITHOUT CONTRAST COMPARISON: None. INDICATIONS: Altered Mental Status TECHNIQUE: CT images were obtained without contrast material. All CT scans at this facility use dose modulation, iterative reconstruction, and/or weight based dosing when appropriate to reduce radiation dose to as low as reasonably achievable. IV CONTRAST: No IV contrast used,0ml TOTAL DOSE: 52.30 CTDIvol(mGy) FINDINGS: CEREBRUM: Age-appropriate atrophy is present, without visible acute hemorrhage or lesion. 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 CEREBELLUM: No edema, hemorrhage, mass, acute infarction, or inappropriate atrophy. BRAINSTEM: No edema, hemorrhage, mass, acute infarction, or inappropriate atrophy. CSF SPACES: Ventricles, cisterns, and sulci are appropriate for age. No hydrocephalus, subarachnoid hemorrhage, or mass. SKULL: No mass or other significant visible lesion. SINUSES: Moderate mucosal thickening is present in the frontal, maxillary and sphenoid sinuses. There is severe mucosal thickening of the ethmoid sinuses. There is partial opacification of the left mastoid air cells. ORBITS: Limited views are unremarkable. OTHER: Negative. CONCLUSION: 1. There is no evidence of acute intracranial abnormality. Continued Report - Page 2 of 2 Patient: YUNIOR QUISPE Phone#: : 1960 Age: 57 Gender: M Pt. Type: ER Account: [id number] Location: [facility] Ordering: LUIS E TONY Exam Date: 05/08/2018/6:35 Family Phys: CARLITO DAVIS Charge Code: [id number] Physician: Otter Tail Order #: [id number] DLP Dose#: [id number] 2. Pansinusitis. Dictated by: Johanna Mueller MD on 05/08/2018 at 8:21 Approved by: Johanna Mueller MD on 05/08/2018 at 8:21 CBC Collected: 05/08/2018 Status: F Source: [facility] 6:[address] [facility] REPOSITORY TYPE CODE TESTS RESULT OUT OF RANGE REFERENCE UNITS LAB CBC(LOINC) CBC Result Comment: CBC-COMPLETE BLOOD COUNT LAB WBC(LOINC) 4.5 - 10.8 x 10EE3/UL WBC High 11.3 LAB RBC(LOINC) 4.50 - x 10EE6/UL 6.00 RBC 4.71 LAB HEMOGLOBIN(LOINC 13.0 - g/dl ) 17.5 HEMOGLOBIN 14.6 LAB HEMATOCRIT(LOINC 40.0 - % ) 52.0 HEMATOCRIT 42.9 LAB MCV(LOINC) 81 - 98 fl MCV 91 LAB MCH(LOINC) 27 - 33 pg MCH 31 LAB MCHC(LOINC) 32 - 36 X10 3 MCHC 34 LAB RDW/CV(LOINC) 12.0 - % 15.6 RDW/CV 13.7 LAB PLATELET(LOINC) 150 - 450 x10EE3/UL PLATELET 306 LAB MPV(LOINC) 6.4 - 10.5 fl MPV 7.2 Result Comment: AUTOMATED DIFFERENTIAL LAB NEUT %(LOINC) 46.0 - 76.0 % NEUT % High 85.9 LAB LYMPH %(LOINC) 20.0 - 45.0 % Low LYMPH % 7.2 LAB MONOS %(LOINC) 0.0 - 10.0 % MONOS % 5.4 LAB EO %(LOINC) 0.0 - 7.0 % EO % 1.2 LAB BASO %(LOINC) 0.0 - 2.0 % BASO % 0.3 LAB Lymph #(LOINC) 0.80 - 2.80 x10EE3/U L Lymph # 0.80 LAB Neut #(LOINC) 1.50 - 7.10 x10EE3/U L Neut # High 9.70 LAB [place] #(LOINC) 0.20 - 1.00 x10EE3/U L [place] # 0.60 LAB EO #(LOINC) 0.00 - 0.50 x10EE3/U L EO # 0.10 LAB Baso #(LOINC) 0.00 - 0.10 x10EE3/U L Baso # 0.00 LAB MANUAL DIFF(LOINC) MANUAL DIFF N/A LAB MORPHOLOGY(LOINC ) MORPHOLOGY N/A Result Comment: {CD] Performed By: #### [id number] #### [place] [address] LACTATE Collected: 05/08/2018 Status: F Source: [facility] 6:48 [facility] REPOSITORY TYPE CODE TESTS RESULT OUT OF REFERENCE UNITS RANGE LAB LACTATE(ABRAHAM 4.5 - 18.0 mg/dL [place]) LACTATE 13.1 Performed By: #### [id number] #### [place] [address] TROPONIN Collected: 05/08/2018 Status: F Source: [facility] 6:48 [facility] REPOSITORY TYPE CODE TESTS RESULT OUT OF REFERENCE UNITS RANGE LAB TROPONIN 0.00 - 0.05 ng/ml I(LOINC) TROPONIN I <0.01 Result Comment: Elevated troponin (above the 99th percentile) usually indicates myocardial ischemia. Results must be interpreted within the clinical setting. 1.Non-ischemic pathology can also cause elevated troponin levels (e.g., acute pulmonary embolism, myocarditis, pericarditis, heart failure, intracranial injury, rhabdomyolisis, sepsis, shock and renal insufficiency). 2.Approximately 1% of healthy adults have elevated troponin levels. 3.Analytical false positive results rarely occur(due to multiple interferences such as heterophile antibodies). Performed By: #### [id number] #### [place] [address] CMP WITH EGFR Collected: 05/08/2018 Status: F Source: [facility] 6:[address] [facility] REPOSITORY TYPE CODE TESTS RESULT OUT OF RANGE REFERENCE UNITS LAB CMP with eGFR(LOINC) CMP with eGFR Result Comment: COMPREHENSIVE METABOLIC PANEL LAB SODIUM(LOINC) 136 - 145 mmol/l SODIUM 140 LAB POTASSIUM(LOINC) 3.5 - 5.1 mmol/L POTASSIUM 3.6 LAB CHLORIDE(LOINC) 98 - 107 mmol/L CHLORIDE 106 LAB CO2(LOINC) 21.0 - mmol/L 31.0 CO2 27.5 LAB GLUCOSE(LOINC) 74 - 106 mg/dl GLUCOSE 88 LAB BUN(LOINC) 6 - 20 mg/dl BUN 19 LAB CREATININE(LOINC) 0.7 - 1.3 mg/dl CREATININE 1.2 LAB AST/SGOT(LOINC) 13 - 39 U/L AST/SGOT 13 LAB ALK PHOS(LOINC) 38 - 126 U/L ALK PHOS Low 32 LAB CALCIUM(LOINC) 8.6 - mg/dl 10.2 CALCIUM 9.2 LAB TOTAL PROTEIN(LOINC) 6.4 - 8.3 g/dl TOTAL Low PROTEIN 6.2 LAB ALBUMIN(LOINC) 3.4 - 4.8 g/dL ALBUMIN 3.8 LAB GLOBULIN(LOINC) 1.5 - 3.8 G/DL GLOBULIN 2.4 LAB A/G RATIO(LOINC) 0.9 - 1.6 A/G RATIO 1.6 LAB TOTAL BILI(LOINC) 0.0 - 1.5 mg/dl TOTAL BILI 0.6 LAB B/C RATIO(LOINC) 0 - 30 ratio B/C RATIO 16 LAB ALT/SGPT(LOINC) 10 - 40 U/L ALT/SGPT 10 LAB ANION GAP(LOINC) 10 - 20 mmol/L ANION GAP 10 LAB AGE(LOINC) years AGE 57 LAB eGFR(LOINC) 60 - 999 ML/MINUTE eGFR >60 LAB eGFR(AA)(LOINC) 60 - 999 ML/MINUTE eGFR(AA) >60 Result Comment: ACCORDING TO THE NATIONAL KIDNEY DISEASE EDUCATION PROGRAM(NKDE), A NORMAL eGFR IS A VALUE GREATER THAN OR EQUAL TO 60 ML/MIN/1.73 SQ METERS. CHRONIC KIDNEY DISEASE: <60mL/MIN/1.73 SQ METERS KIDNEY FAILURE: <15mL/MIN/1.73 SQ METERS THIS TEST SHOULD ONLY BE USED FOR PATIENTS 18 YEARS OF AGE AND OLDER. Performed By: #### [id number] #### [facility],[address] [place], [place] [id number] Observed: 05/08/2018 Status: F Source: [facility] CULTURE BLOOD 6:[address] [facility] REPOSITORY CULTURE BLOOD CULTURE BLOOD SET: 1 of 1 24HOUR REPORT NEGATIVE 48HOUR REPORT POSITIVE CALLED TO MODESTO/RUTH/1600/LM READ BACK BY MODESTO bartlett pos cocci in /05-09-/l M I C R O B I O L O G Y R E P O R T FINAL Antimicrobial Susceptibility and Organism Identification Report Specimen Number : [id number] Requested : 05/08/18 Specimen Source : BLOOD Collected : 05/08/18 06:05 [place] [facility] : Emergency Room Received : 05/08/18 06:05 Requesting Physician : CECILY Patient/Specimen Tests and Comments Specimen Comments FINAL REPORT: GRAM POSITIVE COCCI PROBABLE CONTAMINATION Tech : Source : BLOOD ID # : [id number] FINAL Report Date : / / : Collected : 05/08/18 06:05 05/13/18.0812.BKO. 05/13/18.0810.BKO. 05/10/18.1336.BKO. 05/13/18.0813.BKO.COMPLETE Performed By: #### [id number] #### [facility],[address] [place] [address] EMERGENCY REPORT Observed: 05/08/2018 Status: F Source: [facility] 5:13 AM [facility] EMERGENCY ROOM REPORT NAME ACCOUNT SEX AGE ADMIT DISCHARGE PT MED. RECORD# NUMBER DATE DATE TYPE JOSE ENRIQUE [id number] M 57 05/08/18 05/08/18 3 Y[facility]IOR Cleaning [id number] ROOM: ER DATE OF : 1960 DICTATING PHYSICIAN: Joseph Elizondo ADDENDUM DIAGNOSTIC DATA: His head CT was negative. Chest x-ray did not show any acute abnormalities. Laboratory studies showed a CBC with a white count of 11,300 with 85% neutrophils and a normal H&H. Lactate and troponin were normal with a troponin of less than 0.01. CMP was essentially all within normal limits. EMERGENCY DEPARTMENT COURSE AND TREATMENT: I assumed care of this patient upon my arrival. The patient at that point had been given an amp of D50 and was awaiting laboratory tests. When I examined him, his main complaint was still feeling a little cold and irritation to his lips and mouth. He states that he gets irritation and a raw feeling like this frequently, and if and when he takes vitamin C and echinacea it improves markedly. Vital signs were otherwise appropriate as noted. A repeat bedside glucose shortly after that was 57. He had not yet taken anything by mouth at that point. I did give him an amp of D50, and he did eat some breakfast. I gave him a little Toradol IV for his mouth discomfort, which does show some diffuse irritation to the inner lower lip and posterior pharynx but no exudate or ulcers. He felt very much improved after that. A blood sugar was 134. I discussed management with him. He is here with his son, who can watch him through the day. He was discharged at that point and states he did not feel cold. He did take p.o. fluids as mentioned. He is to follow up with Dr. Davis within the next 1 to 2 days, returning if his symptoms worsen in any way. DIAGNOSIS: Episode of hypoglycemia and hypothermia, resolved. Dictated By: Joseph Elizondo MD 05/08/18 09:31 JOB #: [id number] Transcribed By: alverto 05/08/18 09:50 Electronically signed by: JERMAIN Elizondo M.D. 05/11/18 07:29 Page 1 of 1 YUNIOR QUISPE Emergency Room Report EMERGENCY REPORT Observed: 05/08/2018 Status: F Source: [facility] 5:13 AM [facility] EMERGENCY ROOM REPORT NAME ACCOUNT SEX AGE ADMIT DISCHARGE PT MED. RECORD# NUMBER DATE DATE TYPE JOSE ENRIQUE [id number] Edda 57 05/08/18 05/08/18 3 YUNIOR Cleaning [id number] ROOM: ER DATE OF : 1960 DICTATING PHYSICIAN: Luis E Tony TIME SEEN: 5:20 a.m. HISTORY OF PRESENT ILLNESS: This is a 57-year-old white male found unresponsive [place] by family. EMS was called. They found his blood sugar to be low at 35, so he was given an amp of D50. When he arrived here in the Emergency Department, he was starting to talk to us. He was found to be hypothermic with a temperature of 94.4. Presently, the patient denies any chest pain or shortness of breath. He states he does feel cold. He does admit to being an insulin-dependent diabetic but does not have any idea why his blood sugar dropped. He states he had been eating today. PAST MEDICAL HISTORY: Hypertension, insulin-dependent diabetes mellitus, and gastroesophageal reflux disease. PAST SURGICAL HISTORY: Previous orthopedic surgery on his neck. ALLERGIES: He is allergic to Vicodin. SOCIAL HISTORY: He does not smoke. He does not drink alcohol. [place]. REVIEW OF SYSTEMS: The patient admits to chills and feeling cold but denies any sweats or fever. He denies any chest pain, shortness of breath, cough, sputum, wheezing, abdominal pain, nausea, vomiting, diarrhea, constipation, melena, hematochezia, headache, or numbness. He does admit to diffuse generalized weakness. He denies any neck or back pain, joint pain, skin rash or swelling, hives, hay fever, or swollen glands. Further review of systems is negative. PHYSICAL EXAMINATION: Vital signs: Blood pressure is 158/82, pulse 83, respirations 16, temperature 94.4, and pulse oximetry 94%. The patient is starting to wake up. Initially upon presentation to the Emergency Room he was only mildly responsive, but he is starting to talk to us now, and he appears to be alert and oriented x3. He is pleasant and cooperative. HEENT: Head appears atraumatic. Pupils are equal and reactive to light. Red reflexes are intact bilaterally. Extraocular muscles are intact. No conjunctival injection. Nose exhibits no rhinorrhea or epistaxis. Mouth: Mucous membranes are mildly dry. I do note that he has got some diffuse swelling to the lower Page 1 of 2 YUNIOR QUISPE Emergency Room Report lip, and he did have some dried blood over the lower lip, almost like he bit his lower lip. He does not have a history of seizure disorder, but it almost appears like he may have had a seizure from the low blood sugar. Neck is supple. Trachea is midline. No JVD or lymphadenopathy. No posterior cervical tenderness. No nuchal rigidity. Lungs are clear anteriorly but somewhat diminished bibasilar. No accessory muscle use. CV: Heart rate and rhythm are regular without murmur. Abdomen is soft and nontender with normoactive bowel sounds x4 quadrants. No guarding or rigidity. No rebound. No palpable abdominal masses. Back exhibits no midline or paraspinal region tenderness. No increased paraspinal muscle rigidity. Negative David's sign. Extremities: No edema or cyanosis. Peripheral pulses are intact. No motor or sensory deficits are noted. Hand label fuser tender are strong and symmetric. Skin does feel cool to the touch, but there is no diaphoresis or rash noted. We did note that when he came here his clothes were wet. Neurologic examination presently shows the patient to be alert and oriented x3. He was confused as to his situation and how he ended up here. He did not know where he was initially. Otherwise, he knows his name and knows approximately what time of day it is and where he lives. EMERGENCY DEPARTMENT COURSE AND TREATMENT: Presently, at this point his blood sugar is 120 so he is more alert and oriented. I am going to do a septic work-up since the patient is hypothermic. We will get a CT of the brain due to the fact that the patient was unresponsive, and we then we will reevaluate. Dictated By: Luis E Tony DO 05/08/18 05:46 JOB #: [id number] Transcribed By: alverto 05/08/18 09:28 Electronically signed by: E-Sign: Dr. Luis E Tony D.O. 05/16/18 02:45 Page 2 of 2 YUNIOR QUISPE Emergency Room Report GLUCOSE LEVEL Collected: 04/09/2018 Status: F Source: [facility] 10:05 AM [facility] REPOSITORY TYPE CODE TESTS RESULT OUT OF REFERENCE UNITS RANGE LAB 96730-4(ABRAHAM 70-110 mg/dL NC) High Glucose Level 216 Performed By: #### [id number] #### [facility] [address], [place] C-PEPTIDE Collected: 04/09/2018 Status: F Source: [facility] 10:05 AM [facility] REPOSITORY TYPE CODE TESTS RESULT OUT OF RANGE REFERENCE UNITS LAB 1985-(LOIN 0.8-3.9 ng/mL C) Low C-Peptide <0.1 Result Comment: Test performed at [facility], [address], [place], [place] [id number] Michele Esocbedo MD - Plunger Shovel Operator Performed By: #### [id number] #### [facility], [address] [place], [place] ENDOCRINOLOGY VISIT Observed: 03/18/2018 Status: F Source: [facility] [address] [place] [address] Ave[address] [place] [address] OFFICE VISIT Date of Service: 02/26/18 MR#: [id number] Acct: [id number] Name: YUNIOR QUISPE Rep #: [id number] : 1960 Provider: Kaye Gauthier NP Age/Sex: 57/M Location: [facility] Status: Signed with Addenda ADDENDUM by Kaye Gauthier NP on 03/18/18 at 0828 Addendum entered and electronically signed by JACINTO Lewis 03/18/18 08:28: Patient tests blood sugar 8x per day for the last 60 days and injects insulin 4 times daily for last 6 months. GIANA Gauthier 03/18/18 0828 <Electronically signed by Kaye CASEY> Date Kaye Gauthier cc: * Signed HPI History of present illness Yunior Quispe is a 57 year old male who presents for follow up of diabetes type 1. Diagnosed at age 7. Continues on Novoloin 70/30 twice daily; 23 units in am and 20 units in pm. Has sliding scale humalog for ISF. Recent hospital stay due to fall down his basement stairs which resulted in brain bleed. Is home after several days in hospital. Is getting home visits and therapy. is asking to place patient on an insulin pump as he is having what seems like more frequent low BG readings to her and she is worried. At time of visit: -Pt denies symptoms of hypertensive emergency (CP,SOB,CURRIE, or blurred vision) and hypotension(dizziness or lightheadedness) -Pt denies symptoms of hypoglycemia ( sweaty, confusion, anxiety, tremor, hunger, palpitations) and hyperglycemia ( polydipsia, polyuria) -Pt denies potential medication adverse effect with exception of erectile dysfunction. Hypoglycemia Aware of hypoglycemia: When awake Able to self treat low BG: Yes Frequent low Blood sugar: afternoons around 4-5pm Has supply of glucagon: Yes Diet Healthy Eats three meals daily and occ snacks Does carb count. Exam Const General: comfortable, no acute distress, well hydrated Nutritional Appearance: average body habitus Orientation: oriented x3 HENMT Head: normal to inspection, atraumatic Ears: hearing grossly normal bilaterally Nose: no nasal discharge Mouth: oral mucosae normal, moist mucous membranes Teeth and gingiva: dentition normal Eyes General: appearance normal, both eyes and all related structures Conjunctivae: conjunctivae normal Sclera: sclerae normal Pupils: PERRL Neck Neck: normal visual inspection Neck mass: No Chest Chest palpation AND inspection: deferred Resp Effort AND Inspection: normal respiratory effort, able to speak in complete sentences, symmetric chest movement Auscultation: Bilateral: Clear to Auscultation Cardio Rate: regular rate Rhythm: regular rhythm Heart Sounds: S1 normal, S2 normal GI Inspection: normal to inspection Auscultation: normal bowel sounds Palpation: soft, no guarding Musc Thoracic/Lumbar Spine: thoracic and lumbar spine normal to inspection Skin General: no rashes or lesions noted Wounds: no wounds Diabetic Foot Pulses: L dorsalis pedis pulse: normal Monofilament test: Left foot: abnormal, Right foot: abnormal Neuro General: gait normal Cognition: normal cognition Speech: speech normal Motor: muscle tone normal throughout Extrem General: full ROM, normal to inspection, pedal edema Psych Appearance: grossly normal Mood: congruent mood Affect: normal affect Speech and Movement: speech and movement normal Attitude: cooperative Thought Process: normal Thought Content: normal Judgment: good Weight and fatigue symptoms: Denies snoring Cardiopulmonary symptoms: Denies chest pain at rest, dyspnea on exertion, lightheadedness or myalgias GI symptoms: Denies constipation, diarrhea, nausea/dyspepsia or vomiting Skin and extremity symptoms: Denies erectile dysfunction Other symptoms: Reports change in vision; denies blurry vision Type: type 1, insulin-requiring Glucose control symptoms: Reports hypoglycemic with activity and daytime hypoglycemia Cardiopulmonary symptoms: Reports dizziness; denies chest pain at rest GI symptoms: Reports nausea/dyspepsia and vomiting (has an SCOP derm patch); denies increased hunger Other symptoms: Denies change in vision or depression Self monitoring: Yes Percentage of fasting blood glucose within goal: >50% of the time Dietary compliance: Diabetes: good Diabetes education in past year: Yes Glucose testing: demonstrates correct use of meter, understands testing schedule Sick day education - understands ketone testing: Yes Physical activity: regular Intake Vital Signs02/26/18 Height 5 ft 8 in 02/26/18 Weight: 173 lb 02/26/18 Body Mass Index (BMI) 26.3 02/26/18 Blood Pressure 142/86 02/26/18 Blood Pressure Location Lt popliteal Intake Visit Reasons: diabetes Patient Account Specialist Required: No Accompanied by: Is patient in pain?: No Allergies acetaminophen [From Vicodin] Allergy (Severe, Verified 02/26/18 14:43) Unknown hydrocodone [From Vicodin] Allergy (Severe, Verified 02/26/18 14:43) Unknown Medications insulin syringe-needle U-100 1 mL 31 gauge x 10/29 See Dose Instructions .ROUTE .MEDSUPPLY #270 ea 05/21/17 [Rx Confirmed 02/26/18] blood sugar diagnostic strips See Dose Instructions .ROUTE .MEDSUPPLY #20 ea 06/25/17 [History Confirmed 02/26/18] carvedilol 6.25 mg tablet 6.25 mg PO QDAY tab 06/25/17 [History Confirmed 02/26/18] chromium picolinate 1,000 mcg tablet 1,000 mcg PO QDAY tab 06/25/17 [History Confirmed 02/26/18] insulin lispro (U-100) 100 unit/mL subcutaneous solution See Label Instructions SC TID ml 06/25/17 [History Confirmed 02/26/18] hydrochlorothiazide 12.5 mg capsule 12.5 mg PO QDAY 07/02/17 [History Confirmed 02/26/18] insulin human U-100 NPH-regulr 70-30 mix 100 unit/mL subcutaneous susp See Label Instructions SC BID ml 07/02/17 [History Confirmed 02/26/18] losartan 100 mg tablet 100 mg PO QDAY 07/02/17 [History Confirmed 02/26/18] omeprazole magnesium 20 mg tablet,delayed release 20 mg PO QDAY tab 07/02/17 [History Confirmed 02/26/18] ranitidine 150 mg capsule 150 mg PO BID cap 07/02/17 [History Confirmed 02/26/18] insulin syringe-needle U-100 0.5 mL 31 gauge x 10/29 See Dose Instructions .ROUTE .MEDSUPPLY #270 ea 10/15/17 [Rx Confirmed 02/26/18] [facility] Medical History Back problem (Acute) Carpal tunnel syndrome (Acute) Diabetes type 1, controlled (Acute) Kidney stones (Acute) Low calcium levels (Acute) Neuropathy (Acute) HTN (hypertension) (Chronic) Surgical History H/O colonoscopy (Acute) Social History Smoking Status: Former smoker second hand exposure: No alcohol intake: current substance use type: does not use ROS Const Constitutional: No fever(s), night sweats or chills Eyes Eyes: No change in vision ENT ENT: No ear discharge, ear pressure, ear pain or nosebleed/epistaxis Resp Respiratory: No cough or shortness of breath Cardio Cardiology: No chest pain at rest or generalized swelling Gastro GI: Positive for nausea/dyspepsia, vomiting (has an SCOP derm patch) and other (loss of appitite) Genitourinary Male: No difficulty urinating, urinary urgency or burning urination Musc Musculoskeletal: Positive for numbness (arms); no joint pain or muscle cramps Skin Skin: Positive for rash (has since resolved ); no lesions Neuro Neurology: Positive for numbness (arms) and dizziness; no fainting Psych Psychiatric: No depression, No anxiety Endo Endocrine: No increased thirst/drinking or increased hunger Serge/Lymp Hematologic/Lymphatic: No easy bleeding or easy bruising Assessment AND Plan Problems 1. Type 1 diabetes mellitus with microalbuminuria E10.29 Plan Patient sliding scale revamped to avoid low BG. New scale written out and is tracking BG Will notify [facility]tr[facility] of desire to start pump therapy. RTC 3 months, sooner if pump is sent Will need to see you one week inot pump training. Plan Detail Additional Comments 1. Please schedule follow up in 3 months. 2. Lab work one week before appointment. 3. Discussed importance of regular exercise and recommend starting or continuing a regular exercise program for good health. 4. The patient was encouraged to maintain weight for good health 5. The importance of monitoring blood sugar regularly was reviewed. 6. The importance of monitoring the HBA1c level regularly was reviewed. 7. The importance of prper foot care and regularly checking feet to prevent sores and loss of limbs was reviewed. 8. The importance of keeping BP at or below 130/80 to prevent stroke, heart attacks, kidney failure, blindness was reviewed. Spent approximately 30 minutes with patient with over 50% of time spent in discussion and counseling regarding medication adjustment, symptoms and treatment of hypoglycemia, diet adherence, and checking BG before driving. 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 Diabetes mellitus type: type 1 Diabetes mellitus complication detail: with microalbuminuria Diabetes mellitus complication status: with kidney complications Time Spent (min) 45 03/01/182020 <Electronically signed by Kaye CASEY> Date Kaye CASEY Cosigner Signature: Date (if applicable) CC: DISCHARGE SUMMARY Observed: 02/25/2018 Status: F Source: [facility] 8:26 PM [facility] REPOSITORY Patient: YUNIOR QUISPE Age: 57 years Sex: Male : 1960 Associated Diagnoses: None Author: Simone Whalen MD Discharge Information Admit Date: 01/28/18 19:01 Discharge Date: 02/03/18 16:45 Discharge Disposition: Rehab inpatient facility 63 Reason For Visit: FALL Admitting Physician: Luan Green MD Attending Physician: Ignacio Cabrales MD Consulting Physician: Christine Flores MD Consulting Physician: Roxanna Maki DO Primary Care Physician: Physician, PCP Unknown Primary Care Physician: Physician, No PCP Active/Final Diagnosis(es) Cervicalgia Contusion and laceration of right cerebrum with loss of consciousness of unspecified duration, initial encounter Nontraumatic acute subdural hemorrhage Other fracture of base of skull, initial encounter for closed fracture Spinal stenosis, cervical region Traumatic subdural hemorrhage with loss of consciousness of unspecified duration, initial encounter Traumatic subdural hemorrhage with loss of consciousness of unspecified duration, initial encounter Unspecified mental disorder due to known physiological condition . Hospital Course Hospital Course temporal bone fx traumatic head injury SDH. The patient presented to [facility] per EMS after fall down stairs with positive LOC. Patient was unable to articulate accurate HPI or PMH. Per report to EMS, patient fell in morning and was found confuse d on toilter by . There was blood present at bottom of stairwell. GCS upon arrival was 13 and patient was complaining of 10/[address]. [address] imaging, patient was found to have traumatic brain inj ury resulting in subdural hematoma, for which neurosurgery was consulted. Patient was managed nonoperatively for this as well as temporal bone fracture seen. Patient also recognized to have cervical spi ne pain. MRI imagign demonstrated C4C5 stenosis which flex-ex imaging revealed to be stable. Patient remained having slightly altered mental status over the course of hospital stay. PT/OT consulted. Mindy hernandez was refered to inpatient rehab. Patient improved throguhout hospital stay and diet was progressed and patient was discharged in stable condition with instructions to return to ED if symptoms persisted or worsened. . Procedures Performed None. Medications Discharge Medications TraMADol (traMADol 50 mg oral tablet) 1 Tab = 50 mg By Mouth Tablet every 4 hours, As Needed Pain - Moderate Last Dose: 02/03/2018 13:52 carvedilol (carvedilol 12.5 mg oral tablet) 1 Tab = 12.5 mg By Mouth once a day docusate (docusate sodium 100 mg oral tablet) 1 Tab = 100 mg By Mouth Twice a day, As Needed for constipation x 14 Day(s) with plenty of water hydroCHLOROthiazide (hydroCHLOROthiazide 12.5 mg oral tablet) 1 Tab = 12.5 mg By Mouth once a day insulin aspart-insulin aspart protamine (NovoLOG MIX 70/30) Subcutaneous One Time Only COMMENTS: PT UNABLER TO ANSWER, FAMILY DOES NOT KNOW DOSE insulin lispro (HumaLOG 100 units/mL injectable solution) Subcutaneous Before Meals - 3 Times a day COMMENTS: PT USES SLIDING SCALE, UNABLE TO ANSWER, FAMILY DOES NOT KNOW SCALE losartan (losartan 100 mg oral tablet) 1 Tab = 100 mg By Mouth once a day scopolamine (scopolamine 1.5 mg transdermal film, extended release) 1 Patch = 1.5 mg TransDermal Patch every 3 days Last Dose: 02/03/2018 15:08 Discontinued Medication Information No discontinued medication information charted Non-medication prescriptions No non-medication prescriptions charted Immunizations No vaccinations charted Allergies NKA Results Review Discharge Lab Results 02/03/18 04:57, Hemoglobin = 13.8 gm/dL 02/03/18 04:57, Hematocrit = 39.5 % 02/03/18 04:57, WBC Count = 6.5 thou/mcL 02/03/18 04:57, Platelet Count = 294 thou/mcL 01/28/18 21:38, PT = 12.3 Sec 01/28/18 21:38, INR = 1.08 02/03/18 04:57, Sodium Level = 129 mMol/L L 02/03/18 04:57, Potassium Level = 3.8 mMol/L 02/03/18 04:57, Creatinine = 1.01 mg/dL 02/03/18 04:57, BUN = 15 mg/dL 02/03/18 04:57, Glucose Level = 138 mg/dL H Pending Labs/ Orders No unresulted orders Measurements (Last Charted) Weight: 74.10 kg /163 lbs 6 oz (Type not Indicated) (02/03/18 06:52:00) Height: 170.00 cm /66.93 in (Type not Indicated) (01/28/18 20:42:00) Discharge Plan Discharge Instructions for the patient No discharge instructions charted Follow Up Appointments Provider: Christine Flores MD Specialty: Neurological Surgery Address: [address] [place] [address] (1) Date: 03/19/18 11:45 am Provider: No PCP Physician Specialty: Family Practice; Internal Medicine Address: Date: Follow-up as needed Provider: [facility] Specialty: Address: [address] [place] [phone]) Date: Follow-up as needed Comment: Follow-up as needed only Patient Education Given [facility] Trauma Aftercare Instructions generic ([id number]), Subdural Hematoma BASIC METABOLIC PANEL Collected: 02/19/2018 Status: F Source: [facility] 3:00 PM [facility] REPOSITORY TYPE CODE TESTS RESULT OUT OF RANGE REFERENCE UNITS LAB 79428-3(LO 70-110 mg/dL INC) Low Glucose Level 59 LAB 12047-2(LO 6.0-18.0 mMol/L INC) Anion Normal Gap 9.0 LAB 14261-4(LO 8-20 mg/dL INC) BUN Normal 14 LAB 2823-3(BARAHAM 3.6-5.1 mMol/L NC) High Potassium Level 5.3 LAB 63933-4(LO 8.9-10.3 mg/dL INC) Calcium Normal Total 9.9 LAB 2951-2(ABRAHAM 136-145 mMol/L NC) Sodium Normal Level 138 LAB 2028-9(ABRAHAM 22-32 mMol/L NC) Carbon Normal Dioxide Level 28 LAB 2160-0(ABRAHAM 0.60-1.30 mg/dL NC) Normal Creatinine 1.14 LAB 2075-0(ABRAHAM 98-107 mMol/L NC) Chloride Normal Level 101 Performed By: #### 71020-7 #### [place] [address] [place], [place] GFRAA Collected: 02/12/2018 Status: F Source: [facility] 6:13 AM [facility]ALTH SYSTEM REPOSITORY TYPE CODE TESTS RESULT OUT OF RANGE REFERENCE UNITS LAB 77616-1(LO mL/min INC) GFR Normal Estimated >60 Result Comment: The MDRD equation has not been validated for those over 70 years, women, patients with serious co-morbid conditions, or with extremes of body size, muscle mass of nutritional status. Performed By: #### [id number], 71012-2q2, 07354-5 #### [place] [id number], [place] GFRBB Collected: 02/12/2018 Status: F Source: [facility] 6:13 AM [facility] REPOSITORY TYPE CODE TESTS RESULT OUT OF RANGE REFERENCE UNITS LAB 32193-9(LO mL/min INC) GFR Normal Estimated Non >60 Performed By: #### 55074-1, 19078-9s1, 22777-2 #### [facility] [address], [place] BASIC METABOLIC PANEL Collected: 02/12/2018 Status: F Source: [facility] 6:13 AM [facility]ALTH SYSTEM REPOSITORY TYPE CODE TESTS RESULT OUT OF RANGE REFERENCE UNITS LAB 72534-4(LO 70-110 mg/dL INC) Glucose Normal Level 99 LAB 01668-4(LO 8-20 mg/dL INC) BUN Normal 20 LAB 82939-8(LO 6.0-18.0 mMol/L INC) Anion Normal Gap 6.0 LAB 2028-9(ABRAHAM 22-32 mMol/L NC) Carbon Normal Dioxide Level 29 LAB 29297-3(LO 8.9-10.3 mg/dL INC) Calcium Normal Total 9.4 LAB 2951-2(ABRAHAM 136-145 mMol/L NC) Low Sodium Level 126 LAB 2075-0(ABRAHAM 98-107 mMol/L NC) Low Chloride Level 91 LAB 2160-0(ABRAHAM 0.60-1.30 mg/dL NC) Normal Creatinine 1.19 LAB 2823-3(ABRAHAM 3.6-5.1 mMol/L NC) High Potassium Level 5.2 Performed By: #### 04816-8, 09803-2m1, 41037-1 #### [facility] [address], [place] GFRAA Collected: 02/10/2018 Status: F Source: [facility] 5:57 AM [facility] SYSTEM REPOSITORY TYPE CODE TESTS RESULT OUT OF RANGE REFERENCE UNITS LAB 00056-1(LO mL/min INC) GFR Normal Estimated >60 Result Comment: The MDRD equation has not been validated for those over 70 years, women, patients with serious co-morbid conditions, or with extremes of body size, muscle mass of nutritional status. Performed By: #### 96877-5, 07104-0i5, 42145-5 #### [place] [address], [place] GFRBB Collected: 02/10/2018 Status: F Source: [place] 5:57 AM [facility] SYSTEM REPOSITORY TYPE CODE TESTS RESULT OUT OF RANGE REFERENCE UNITS LAB 03271-8(LO mL/min INC) GFR Normal Estimated Non >60 Performed By: #### 45353-2, 71263-7p0, 31825-6 #### [facility] [address], [place] BASIC METABOLIC PANEL Collected: 02/10/2018 Status: F Source: [place] 5:57 AM [facility] SYSTEM REPOSITORY TYPE CODE TESTS RESULT OUT OF RANGE REFERENCE UNITS LAB 2823-3(ABRAHAM 3.6-5.1 mMol/L NC) Normal Potassium Level 5.1 LAB 77447-0(LO 8.9-10.3 mg/dL INC) Calcium Normal Total 9.3 LAB 2160-0(ABRAHAM 0.60-1.30 mg/dL NC) Normal Creatinine 1.13 LAB 87185-5(LO 6.0-18.0 mMol/L INC) Low Anion Gap 4.0 Result Comment: PLEASE NOTE:The calculated Anion Gap(AGAP) does not include Potassium. LAB 2951-2(LOINC) 136-145 mMol/L Low Sodium Level 126 LAB 2028-9(LOINC) 22-32 mMol/L Normal Carbon Dioxide Level 31 LAB 66780-9(LOINC) 70-110 mg/dL High Glucose Level 159 LAB 95000-4(LOINC) 8-20 mg/dL Normal BUN 15 LAB 2075-0(LOINC) 98-107 mMol/L Low Chloride Level 91 Performed By: #### 14320-4, 42227-9k3, 67621-5 #### [facility] [address], [place]FRAA Collected: 02/09/2018 Status: F Source: [place] 6:41 AM [facility] SYSTEM REPOSITORY TYPE CODE TESTS RESULT OUT OF RANGE REFERENCE UNITS LAB 01386-0(LO mL/min INC) GFR Normal Estimated >60 Result Comment: The MDRD equation has not been validated for those over 70 years, women, patients with serious co-morbid conditions, or with extremes of body size, muscle mass of nutritional status. Performed By: #### 17103-9, 59783-8g6, 53859-5 #### [facility] [address], [place] GFRBB Collected: 02/09/2018 Status: F Source: [place] 6:41 AM [facility] SYSTEM REPOSITORY TYPE CODE TESTS RESULT OUT OF RANGE REFERENCE UNITS LAB 10148-2(LO mL/min INC) GFR Normal Estimated Non >60 Performed By: #### 95966-5, 44665-0q3, 61401-5 #### [facility] [address], [place] BASIC METABOLIC PANEL Collected: 02/09/2018 Status: F Source: [facility] JENNIFER 6:41 AM HEALTH SYSTEM REPOSITORY TYPE CODE TESTS RESULT OUT OF RANGE REFERENCE UNITS LAB 59739-9(LO 8.9-10.3 mg/dL INC) Calcium Normal Total 9.3 LAB 56601-5(LO 70-110 mg/dL INC) High Glucose Level 193 LAB 2028-9(ABRAHAM 22-32 mMol/L NC) Carbon Normal Dioxide Level 29 LAB 2075-0(ABRAHAM 98-107 mMol/L NC) Low Chloride Level 88 LAB 93690-6(LO 8-20 mg/dL INC) BUN Normal 16 LAB 2951-2(ABRAHAM 136-145 mMol/L NC) Low Sodium Level 124 LAB 2160-0(ABRAHAM 0.60-1.30 mg/dL NC) Normal Creatinine 1.08 LAB 2823-3(ABRAHAM 3.6-5.1 mMol/L NC) High Potassium Level 5.5 LAB 77384-9(LO 6.0-18.0 mMol/L INC) Anion Normal Gap 7.0 Result Comment: PLEASE NOTE:The calculated Anion Gap(AGAP) does not include Potassium. Performed By: #### 71235-0, 90838-8z4, 17802-9 #### [place] [address] [place], [place] GFRAA Collected: 02/07/2018 Status: F Source: [place] 7:32 AM [facility] REPOSITORY TYPE CODE TESTS RESULT OUT OF RANGE REFERENCE UNITS LAB 84873-6(LO mL/min INC) GFR Normal Estimated >60 Result Comment: The MDRD equation has not been validated for those over 70 years, women, patients with serious co-morbid conditions, or with extremes of body size, muscle mass of nutritional status. Performed By: #### 62797-5, 84981-5l9, 82110-3 #### [place] [address] [place], [place] GFRBB Collected: 02/07/2018 Status: F Source: [place] 7:32 AM [facility] REPOSITORY TYPE CODE TESTS RESULT OUT OF RANGE REFERENCE UNITS LAB 85345-6(LO mL/min INC) GFR Normal Estimated Non 57 Performed By: #### 45512-9, 11772-9t3, 97785-0 #### [place] [address] [place], [place] BASIC METABOLIC PANEL Collected: 02/07/2018 Status: F Source: [place] 7:32 AM [facility] REPOSITORY TYPE CODE TESTS RESULT OUT OF RANGE REFERENCE UNITS LAB 28639-5(LO 8.9-10.3 mg/dL INC) Calcium Normal Total 9.5 LAB 2951-2(ABRAHAM 136-145 mMol/L NC) Low Sodium Level 128 LAB 2823-3(ABRAHAM 3.6-5.1 mMol/L NC) High Potassium Level 5.4 LAB 2160-0(ABRAHAM 0.60-1.30 mg/dL NC) Normal Creatinine 1.30 LAB 51376-6(LO 70-110 mg/dL INC) High Glucose Level 207 LAB 2028-9(ABRAHAM 22-32 mMol/L NC) Carbon Normal Dioxide Level 32 LAB 53383-8(LO 8-20 mg/dL INC) High BUN 24 LAB 2075-0(ABRAHAM 98-107 mMol/L NC) Low Chloride Level 92 LAB 12805-4(LO 6.0-18.0 mMol/L INC) Low Anion Gap 4.0 Result Comment: PLEASE NOTE:The calculated Anion Gap(AGAP) does not include Potassium. Performed By: #### 16866-5, 04514-5v3, 12911-3 #### [facility] [address], [place] CBC WITH DIFFERENTIAL Collected: 02/04/2018 Status: F Source: [place] 6:32 AM [facility] REPOSITORY TYPE CODE TESTS RESULT OUT OF REFERENCE UNITS RANGE LAB 53919-8(LO 0.0-2.0 % INC) Normal Basophil 0.4 LAB 30467-6(LO 142-424 thou/mcL INC) Normal Platelet Count 301 LAB 711-2(LOIN 0.00-0.70 thou/mcL C) Normal Eosinophil 0.30 Absolute LAB 95109-3(LO 4.6-10.2 thou/mcL INC) WBC Normal Count 9.0 LAB 83879-9(LO 0.0-7.0 % INC) Normal Eosinophil 3.3 LAB 76109-6(LO 0.0-12.0 % INC) Normal Monocyte 11.8 LAB 06826-2(LO 39.0-49.0 % INC) Normal Hematocrit 39.9 LAB 53225-2(LO 6.2-12.1 FL INC) MPV Normal 7.5 LAB 704-7(LOIN 0.00-0.20 thou/mcL C) Normal Basophil 0.00 Absolute LAB 21654-5(LO 32.0-36.0 gm/dL INC) MCHC Normal 35.3 LAB 742-7(LOIN 0.00-0.90 thou/mcL C) High Monocyte 1.10 Absolute LAB 86535-4(LO 22.0-44.0 % INC) Low Lymphocyte 15.3 LAB 26844-4(LO 40.0-70.0 % INC) Normal Neutrophil 69.2 LAB 36712-4(LO 4.30-5.70 million/mcL INC) Red Normal Blood Cell 4.46 Count LAB 06006-2(LO 11.0-14.8 % INC) RDW Normal 12.7 LAB 731-0(LOIN 1.00-4.80 thou/mcL C) Normal Lymphocyte 1.40 Absolute LAB 751-8(LOIN 1.80-7.70 thou/mcL C) Normal Neutrophil 6.20 Absolute LAB 48195-7(LO 80.0-97.0 FL INC) MCV Normal 89.4 LAB 75376-8(LO 27.0-34.0 Picograms INC) MCH Normal 31.6 LAB 718-7(LOIN 13.5-17.5 gm/dL C) Normal Hemoglobin 14.1 Performed By: #### 38584-2 #### [facility] [address], [place] GFRAA Collected: 02/04/2018 Status: F Source: [place] 6:32 AM [facility] REPOSITORY TYPE CODE TESTS RESULT OUT OF RANGE REFERENCE UNITS LAB 63997-0(LO mL/min INC) GFR Normal Estimated >60 Result Comment: The MDRD equation has not been validated for those over 70 years, women, patients with serious co-morbid conditions, or with extremes of body size, muscle mass of nutritional status. Performed By: #### 82676-2, 68587-0c8, 79669-7 #### [facility] [address], [place]BB Collected: 02/04/2018 Status: F Source: [place] 6:32 AM [facility] REPOSITORY TYPE CODE TESTS RESULT OUT OF RANGE REFERENCE UNITS LAB 02357-2(LO mL/min INC) GFR Normal Estimated Non >60 Performed By: #### 43793-8, 29367-7b0, 06844-6 #### [facility] [address], [place] BASIC METABOLIC PANEL Collected: 02/04/2018 Status: F Source: [place] 6:32 AM [facility] REPOSITORY TYPE CODE TESTS RESULT OUT OF RANGE REFERENCE UNITS LAB 68706-0(LO 70-110 mg/dL INC) High Glucose Level 190 LAB 2075-0(ABRAHAM 98-107 mMol/L NC) Low Chloride Level 93 LAB 45729-0(LO 8.9-10.3 mg/dL INC) Calcium Normal Total 9.5 LAB 2951-2(ABRAHAM 136-145 mMol/L NC) Low Sodium Level 130 LAB 2028-9(ABRAHAM 22-32 mMol/L NC) Carbon Normal Dioxide Level 27 LAB 2160-0(ABRAHAM 0.60-1.30 mg/dL NC) Normal Creatinine 1.10 LAB 62200-3(LO 8-20 mg/dL INC) BUN Normal 11 LAB 18928-7(LO 6.0-18.0 mMol/L INC) Anion Normal Gap 10.0 Result Comment: PLEASE NOTE:The calculated Anion Gap(AGAP) does not include Potassium. LAB 2823-3(LOINC) 3.6-5.1 mMol/L Normal Potassium Level 4.8 Performed By: #### 59981-6, 21122-2u3, 86036-2 #### [facility] [address], [place] PATIENT SUMMARY Observed: 02/03/2018 Status: C Source: [place] 4:23 PM [facility]ALTH SYSTEM REPOSITORY PATIENT DISCHARGE INSTRUCTIONS If you are having an emergency and are not able to reach your physician, CALL 911 or go to the nearest emergency room and take this document with you. [place] 02/03/18 16:23 [facility] [place]. [address] PATIENT INFORMATION Name: ONEIDA QUISPE Address: [address] [facility] [address] Age: 57 Years Phone: : 1960 12:00 MRN: [facility])-[id number] Sex: Male Race: White Ethnicity: Not Hispan/Lat Admitted From: [facility] Medical Service: Other Nurse Unit/Bed: (CO) NPDELFINO 1Q93-60 Admit Date: 01/28/2018 19:01 PCP: Physician, No PCP PHYSICIANS INVOLVED WITH CARE Attending Physicians: None found Admitting Physician: Norma BRADY , Luan Looney - Surgery Primary Care Physician:Physician, No PCP,Family Practice,Internal Medicine,, - Consults: Christo BRADY , Christine Dumont - Neurological Surgery Roxanna Maki DO - Physical Med/Rehab YOU WERE TREATED IN THE HOSPITAL FOR: Acute subdural hematoma; Closed fracture of temporal bone FOLLOW-UP APPOINTMENTS: Provider: Specialty: Address: Date: No PCP Physician Family Practice; Internal Medicine Follow- up as needed Provider: Specialty: Address: Date: [facility] [address] [address] (6) Follow-up as needed Comment: Follow-up as needed only ALLERGIES: No Known Allergies MEASUREMENTS: Last Charted: Weight: 74.10 kg /163 lbs 6 oz ( 02/03/18 06:52:00 ) MEDICATIONS For: ONEIDA QUISPE This is your list of medication(s). Keep it with you at all times. Your doctor may have changed doses, add, held or stopped some of your medications. Please share this information with your family docto r. Carry this list of medications with you in case of an emergency. Update it when medications are stopped, doses are changed, or new medications (including gprx-rto-haxolrs products) are added. Ask your doctor if you have any questions. THESE ARE THE MEDICATIONS YOU SHOULD BE TAKING acetaminophen-HYDROcodone (acetaminophen-HYDROcodone 325 mg- 5 mg oral tablet) 1 Tab(s) By Mouth every 4 hours as needed as needed for pain. Narcotic pain medications can be addictive, wean yourself from them as tolerated.. Refills: 0. Diagnosis: Acute subdural hematoma [I62.01] carvedilol (carvedilol 12.5 mg oral tablet) 1 Tab(s) By Mouth once a day. docusate (docusate sodium 100 mg oral tablet) 1 Tab(s) By Mouth Twice a day as needed as needed for constipation for 14 Days. with plenty of water. Refills: 0. hydroCHLOROthiazide (hydroCHLOROthiazide 12.5 mg oral tablet) 1 Tab(s) By Mouth once a day. insulin aspart-insulin aspart protamine (NovoLOG MIX 70/30) Subcutaneous One Time Only., PT UNABLER TO ANSWER, FAMILY DOES NOT KNOW DOSE insulin lispro (HumaLOG 100 units/mL injectable solution) Subcutaneous Before Meals - 3 Times a day., PT USES SLIDING SCALE, UNABLE TO ANSWER, FAMILY DOES NOT KNOW SCALE losartan (losartan 100 mg oral tablet) 1 Tab(s) By Mouth once a day. scopolamine (scopolamine 1.5 mg transdermal film, extended release) 1 Patch(es) TransDermal every 3 days. TraMADol (traMADol 50 mg oral tablet) 1 Tab(s) By Mouth every 4 hours as needed Pain - Moderate. MEDICATION CHANGE DETAILS (Not your Final Home Medication List) During the course of your visit, your home medication list was updated with the most current information. The details of those changes are shown below: NEW MEDICATIONS Printed Prescriptions acetaminophen-HYDROcodone (acetaminophen-HYDROcodone 325 mg- 5 mg oral tablet) 1 Tab(s) By Mouth every 4 hours as needed as needed for pain. Narcotic pain medications can be addictive, wean yourself from them as tolerated.. Refills: 0. Comment docusate (docusate sodium 100 mg oral tablet) 1 Tab(s) By Mouth Twice a day as needed as needed for constipation for 14 Days. with plenty of water. Refills: 0. Comment Other Medications scopolamine (scopolamine 1.5 mg transdermal film, extended release) 1 Patch(es) TransDermal every 3 days. Comment TraMADol (traMADol 50 mg oral tablet) 1 Tab(s) By Mouth every 4 hours as needed Pain - Moderate. Comment UPDATED MEDICATIONS None UNCHANGED MEDICATIONS Other Medications carvedilol (carvedilol 12.5 mg oral tablet) 1 Tab(s) By Mouth once a day. Comment hydroCHLOROthiazide (hydroCHLOROthiazide 12.5 mg oral tablet) 1 Tab(s) By Mouth once a day. Comment insulin aspart-insulin aspart protamine (NovoLOG MIX 70/30) Subcutaneous One Time Only., PT UNABLER TO ANSWER, FAMILY DOES NOT KNOW DOSE Comment insulin lispro (HumaLOG 100 units/mL injectable solution) Subcutaneous Before Meals - 3 Times a day., PT USES SLIDING SCALE, UNABLE TO ANSWER, FAMILY DOES NOT KNOW SCALE Comment losartan (losartan 100 mg oral tablet) 1 Tab(s) By Mouth once a day. Comment STOP TAKING THESE MEDICATIONS None DO NOT TAKE UNTIL YOU TALK TO YOUR DOCTOR None NON-MEDICATION PRESCRIPTION SCHEDULING PHONE NUMBER: SELECTED LAB RESULTS Lab Result Order Date Hemoglobin 13.8 gm/dL 02/03/2018 Hematocrit 39.5 % 02/03/2018 WBC Count 6.5 thou/mcL 02/03/2018 Platelet Count 294 thou/mcL 02/03/2018 Prothrombin Time (PT) 12.3 Sec 01/28/2018 INR 1.08 01/28/2018 Sodium Level 129 mMol/L 02/03/2018 Potassium Level 3.8 mMol/L 02/03/2018 Creatinine 1.01 mg/dL 02/03/2018 BUN 15 mg/dL 02/03/2018 Glucose Level 138 mg/dL 02/03/2018 ADVANCE DIRECTIVE/HEALTH CARE DECISIONS: Advance Directive/Health Care Decisions Executed by Patient: Yes Advance Directive/Health Care Decisions Type: Medical Power of Rental Clerk [employer] Copy of Advance Directive/Health Care Decisions on Chart: Patient/Family asked to provide copy SUICIDE HOTLINE: Your mental and emotional well-being are important. If you are in a mental health crisis, or having thoughts of suicide, please call the nationwide suicide hotline, anytime day or night, at 7-391-217-XUEC. Important information about accessing your health information through the [facility] [email or web address] patient portal If you initiated the self-registration process for [email or web address] during your stay, please check your personal email for an invitation to enroll in [email or web address] and complete the steps outlined in the email. If you would prefer to enroll while in the hospital, ask a member of your care team. We would be happy to assist you. If you have already enrolled in [email or web address], go to [email or web address] to login and access your health information. Thank you for choosing [facility]. PATIENT EDUCATION Subdural Hematoma A subdural hematoma is a collection of blood between the brain and its tough outermost membrane covering (the dura). Blood clots that form in this area push down on the brain and cause irritation. A subdural hematoma may cause parts of the brain to stop working and eventually cause . CAUSES A subdural hematoma is caused by bleeding from a ruptured blood vessel (hemorrhage). The bleeding results from trauma to the head, such as from a fall or motor vehicle accident. There are two types of subdural hemorrhages: ???Acute. This type develops shortly after a serious blow to the head and causes blood to collect very quickly. If not diagnosed and treated promptly, severe brain injury or can occur. ???Chronic. This is when bleeding develops more slowly, over weeks or months. RISK FACTORS People at risk for subdural hematoma include older persons, infants, and alcoholics. SYMPTOMS An acute subdural hemorrhage develops over minutes to hours. Symptoms can include: ???Temporary loss of consciousness. ???Weakness of arms or legs on one side of the body. ???Changes in vision or speech. ???A severe headache. ???Seizures. ???Nausea and vomiting. ???Increased sleepiness. A chronic subdural hemorrhage develops over weeks to months. Symptoms may develop slowly and produce less noticeable problems or changes. Symptoms include: ???A mild headache. ???A change in personality. ???Loss of balance or difficulty walking. ???Weakness, numbness, or tingling in the arms or legs. ???Nausea or vomiting. ???Memory loss. ???Double vision. ???Increased sleepiness. DIAGNOSIS Your health care provider will perform a thorough physical and neurological exam. A CT scan or MRI may also be done. If there is blood on the scan, its color will help your health care provider determin e how long the hemorrhage has been there. TREATMENT If the cause is an acute subdural hemorrhage, immediate treatment is needed. In many cases an emergency surgery is performed to drain accumulated blood or to remove the blood clot. Sometimes steroid or diuretic medicines or controlled breathing through a ventilator is needed to decrease pressure in the brain. This is especially true if there is any swelling of the brain. If the cause is a chronic subdural hemorrhage, treatment depends on a variety of factors. Sometimes no treatment is needed. If the subdural hematoma is small and causes minimal or no symptoms, you may b e treated with bed rest, medicines, and observation. If the hemorrhage is large or if you have neurological symptoms, an emergency surgery is usually needed to remove the blood clot. People who develop a subdural hemorrhage are at risk of developing seizures, even after the subdural hematoma has been treated. You may be prescribed an anti-seizure (anticonvulsant) medicine for a year or longer. HOME CARE INSTRUCTIONS ???Only take medicines as directed by your health care provider. ???Rest if directed by your health care provider. ???Keep all follow-up appointments with your health care provider. ???If you play a contact sport such as football, hockey or soccer and you experienced a significant head injury, allow enough time for healing (up to 15 days) before you start playing again. A repeated injury that occurs during this fragile repair period is likely to result in hemorrhage. This is called the second impact syndrome. SEEK IMMEDIATE MEDICAL CARE IF: ???You fall or experience minor trauma to your head and you are taking blood thinners. If you are on any blood thinners even a very small injury can cause a subdural hematoma. You should not hesitate to seek medical attention regardless of how minor you think your symptoms are. ???You experience a head injury and have: ???Drowsiness or a decrease in alertness. ???Confusion or forgetfulness. ???Slurred speech. ???Irrational or aggressive behavior. ???Numbness or paralysis in any part of the body. ???A feeling of being sick to your stomach (nauseous) or you throw up (vomit). ???Difficulty walking or poor coordination. ???Double vision. ???Seizures. ???A bleeding disorder. ???A history of heavy alcohol use. ???Clear fluid draining from your nose or ears. ???Personality changes. ???Difficulty thinking. ???Worsening symptoms. MAKE SURE YOU: ???Understand these instructions. ???Will watch your condition. ???Will get help right away if you are not doing well or get worse. FOR MORE INFORMATION National [place] of Neurological Disorders and Stroke: www.ninds.nih.gov [place] [employer]: www.neurosurgerytoday.org [place] Academy [employer] Neurology (AAN): www.aan.com Brain Injury Association of [place]: www.biausa.org This information is not intended to replace advice given to you by your health care provider. Make sure you discuss any questions you have with your health care provider. Document Released: 04/19/2005 Document Revised: 03/23/2014 Document Reviewed: 12/03/2013 Elsevier Interactive Patient Education ?2016 [employer]vier Inc. Trauma Aftercare Instructions You have been cared for by the Trauma Service at [facility]. This sheet provides general instructions that may be helpful in caring for your injuries. It is impossible to list all of the ??do's and don'ts?? for all injuries. Be sure to follow any instructions that the doctors and nurses give you about your injury once you are discharged. ?? Rest for 24 hours. It is OK to sleep. ?? Avoid heavy activity. Do not bend over or change positions quickly. ?? Apply ice packs to sore areas for 20 minutes each hour for the next [address] towel between the ice pack and the skin to prevent injury. ?? Slowly increase the amount of food you eat at meals. ?? Continue to take any medications prescribed by your doctor. ?? Do not drive if you are taking narcotic pain medication. ?? Do not drink alcohol (beer, wine or liquor). ?? Wash all wounds with soap and water twice a day. Place clean dressings over them. Do not soak any wounds in water. You may use Neosporin ointment on these wounds, but keep the ointment away from your eyes. Call your Doctor or return to the Emergency Department if any of these occur: ?? Unusual sleepiness or difficulty in waking up ?? Confusion, disorientation, or other unusual behavior ?? Any problems breathing ?? Worsening chest pain ?? Worsening abdominal pain ?? Persistent vomiting ?? Blood in the urine ?? Other changes in your condition or new symptoms or problems [facility] has programs to help victims of trauma recover. If you have questions or need help dealing with your injuries after you are discharged, call the Trauma Nurse Coordinator at , Friday - Friday, 8:00am-4:30pm. For urgent concerns after normal office hours, call the [facility] pull over machine operator at [phone] and ask to speak to the Attending Trauma Surgeon vocational instructor. What You Should Know About Opioid Medicine What is an Opioid? Opioid medications are used to treat moderate to severe pain. Morphine, Oxycodone (Percocet??), Hydromorphone (Dilaudid??) and Hydrocodone (Morrill??) are some types of opioids. How do Opioids work? Opioids reduce the pain signals sent to your brain, which decrease your feelings of pain. Opioids may reduce your pain, but may not take all the pain away. What are the risks from taking opioids? Prescription opioids carry serious risks of physical dependence, addiction and overdose, with shelter use. If you take too much of an opioid it can cause sudden . Other risks include but are not limited to: - Physical dependence means you have symptoms of withdrawal when a medication is stopped. - Addiction is a brain disease. Medications change the structure of the brain and how the brain works. These brain changes may be long lasting and can lead to harmful behaviors. - Overdose means you took too much medication. Opioid overdose can result in . Make sure you read all of the medication sheet you received with your prescription. Call 911 right away if you have any of these signs of overdose: - Pale or bluish skin color - Trouble breathing - Severe confusion; not knowing where you are - Your heart is beating slower than normal - You see or hear things that are not real Tell the people you live with that you are taking a medicine that can stop your breathing. Ask them to watch for slow, shallow, or trouble breathing. Tell them to call 911 right away if you have trouble breathing or they cannot wake you up. What you need to know while taking Opioid medication: - Do Not take more medication, or higher doses than prescribed, as you may stop breathing or pass out. - Do not take opioids more often or in higher doses than prescribed. Call your doctor if your pain is not controlled. - Do Not drink alcohol (beer, wine or liquor) while taking this medication, as you may stop breathing or pass out. - Do Not take sleeping pills (like zolpidem (Ambien??) or temazepam (Restoril??)or anti-anxiety medication (like alprazolam (Xanax??), diazepam (Valium??), and lorazepam (Ativan ??) while taking th is medication, as you may stop breathing or pass out. - Do Not crush or alter opioid medication or take it in ways not prescribed by your doctor. - Do Not drive or do tasks that require you to be alert after taking this medication. - If you are , talk to your doctor. Opioids may harm your or baby. What are the side effects from taking opioids? The most common side effects are: - Hard stools (Constipation) - Upset stomach, throwing up and dry mouth - Feeling sleepy - Feeling more pain - Confusion - Depression, low mood, feeling sad or nervous - Itching and sweating - Trouble passing urine Will I become addicted to opioid medication? Addiction is not common when this medication is used for a short time. But, when opioid medications are misused addiction is possible. Talk with your doctor about how to switch to using only non-opio id pain treatment. Please talk to your doctor about your concerns about addiction. How do I safely store and dispose of my opioids? Storage: - Keep your medications secure. - Keep your medications, including any medication patches,out of reach of others (this includes children, friends, family and pets). - Keep your opioids, and all medications, in the pill bottle from the pharmacy. Keep the lid closed. Disposal: - Safely throw out unused opioids: Contact your local pharmacy for how to throw out unused opioid medications or find your local medicine take-back site (http://disposemymeds.org/) - Follow these steps if you can't find a medicine take- back site to throw out , unused or unwanted medicines: Step #1: Mix medicine with used coffee grounds, dirt, or everton litter. Step #2: Put medicines in a sealed plastic bag. Step #3: Place plastic bag in the trash. Step #4: Take prescription bottle and scratch out personal information, then recycle or throw away. - Throw out patch medications by folding them in half with the sticky sides together,and then flushing them down a toilet. Do not place them in the household trash where children or pets can find them. It is against the law to share or sell your opioid medication. What else can I use to treat my pain? Non-opioid pain medications (such as Tylenol??, Motrin??, and Aleve??) may also help with your pain. If your doctor approves, these medications may be used with an opioid medication ordered for you. N on-opioid pain medications also have risks and side effects; please ask your doctor if these medications are safe for you. Many opioid medications also have acetaminophen (Tylenol??) in it. Very bad, and sometimes deadly, liver problems can happen with too much acetaminophen use. What are other ways to help ease your pain? - Heat or ice - Stretching - A pillow under the painful area - Massage - Talking to someone about how your thoughts and feelings affect your pain - Listening to music Talk to your doctor to make sure these actions are safe for you PATIENT DISCHARGE INSTRUCTION Signature Page for: ONEIDA QUISPE Date/Time: 02/03/2018 16:23:01 A Clinician has explained the information on my discharge instructions and has provided me with a copy. My questions have been answered to my satisfaction. Patient Signature Date/Time Responsible Party Date/Time Relationship to Patient Clinician Signature Date/Time CLINICAL SUMMARY Observed: 02/03/2018 Status: C Source: [facility] 4:23 PM HEALTH SYSTEM REPOSITORY CLINICAL SUMMARY Please take this summary document to your follow up appointments. Jenners East 02/03/18 16:22 [address] [place]. [address] PATIENT INFORMATION Name: ONEIDA QUISPE Address: [address] [facility] [address] Age: 57 Years Phone: : 1960 12:00 MRN: [id number] Sex: Male Race: White Ethnicity: Not Hispan/Lat Admitted From: [facility] Medical Service: Other Nurse Unit/Bed: (CO) E[facility] [id number] Admit Date: 01/28/2018 19:01 PCP: Physician, No PCP PHYSICIANS INVOLVED WITH CARE Attending Physicians: None found Admitting Physician: Luan Green MD - Surgery Primary Care Physician:Physician, No PCP,Family Practice,Internal Medicine,, - Consults: Christo BRADY , Christine Dumont - Neurological Surgery Roxanna Maki DO - Physical Med/Rehab DIAGNOSES: Acute subdural hematoma; Closed fracture of temporal bone Problems Active Traumatic intracranial subdural hemorrhage Allergies NKA Procedures No Procedures Documented MEASUREMENTS: Last Charted: Weight: 74.10 kg /163 lbs 6 oz ( 02/03/18 06:52:00 ) VITAL SIGNS: Last Charted: Pulse Rate: 75 BPM (02/03 15:00) Blood Pressure: 158/79 mm Hg (02/03 15:00) Pain Score: 8(02/03 15:29) Last Bowel Movement: Date/Time: 02/03 16:16 02/03/2018 00:00 MENTAL STATUS: Level of Conciousness: Alert (02/03 16:16) Orientation: Oriented x 4 (02/03 16:16) MEDICATIONS ORDERED / RECOMMENDED TO BE CONTINUED for: ONEIDA QUISPE acetaminophen-HYDROcodone (acetaminophen-HYDROcodone 325 mg- 5 mg oral tablet) 1 Tab(s) By Mouth every 4 hours as needed as needed for pain. Narcotic pain medications can be addictive, wean yourself from them as tolerated.. Refills: 0. Diagnosis: Acute subdural hematoma [I62.01] carvedilol (carvedilol 12.5 mg oral tablet) 1 Tab(s) By Mouth once a day. docusate (docusate sodium 100 mg oral tablet) 1 Tab(s) By Mouth Twice a day as needed as needed for constipation for 14 Days. with plenty of water. Refills: 0. hydroCHLOROthiazide (hydroCHLOROthiazide 12.5 mg oral tablet) 1 Tab(s) By Mouth once a day. insulin aspart-insulin aspart protamine (NovoLOG MIX 70/30) Subcutaneous One Time Only., PT UNABLER TO ANSWER, FAMILY DOES NOT KNOW DOSE insulin lispro (HumaLOG 100 units/mL injectable solution) Subcutaneous Before Meals - 3 Times a day., PT USES SLIDING SCALE, UNABLE TO ANSWER, FAMILY DOES NOT KNOW SCALE losartan (losartan 100 mg oral tablet) 1 Tab(s) By Mouth once a day. scopolamine (scopolamine 1.5 mg transdermal film, extended release) 1 Patch(es) TransDermal every 3 days. TraMADol (traMADol 50 mg oral tablet) 1 Tab(s) By Mouth every 4 hours as needed Pain - Moderate. MEDICATION CHANGE DETAILS NEW MEDICATIONS Printed Prescriptions acetaminophen-HYDROcodone (acetaminophen-HYDROcodone 325 mg- 5 mg oral tablet) 1 Tab(s) By Mouth every 4 hours as needed as needed for pain. Narcotic pain medications can be addictive, wean yourself from them as tolerated.. Refills: 0. Comment docusate (docusate sodium 100 mg oral tablet) 1 Tab(s) By Mouth Twice a day as needed as needed for constipation for 14 Days. with plenty of water. Refills: 0. Comment Other Medications scopolamine (scopolamine 1.5 mg transdermal film, extended release) 1 Patch(es) TransDermal every 3 days. Comment TraMADol (traMADol 50 mg oral tablet) 1 Tab(s) By Mouth every 4 hours as needed Pain - Moderate. Comment UPDATED MEDICATIONS None UNCHANGED MEDICATIONS Other Medications carvedilol (carvedilol 12.5 mg oral tablet) 1 Tab(s) By Mouth once a day. Comment hydroCHLOROthiazide (hydroCHLOROthiazide 12.5 mg oral tablet) 1 Tab(s) By Mouth once a day. Comment insulin aspart-insulin aspart protamine (NovoLOG MIX 70/30) Subcutaneous One Time Only., PT UNABLER TO ANSWER, FAMILY DOES NOT KNOW DOSE Comment insulin lispro (HumaLOG 100 units/mL injectable solution) Subcutaneous Before Meals - 3 Times a day., PT USES SLIDING SCALE, UNABLE TO ANSWER, FAMILY DOES NOT KNOW SCALE Comment losartan (losartan 100 mg oral tablet) 1 Tab(s) By Mouth once a day. Comment STOP TAKING THESE MEDICATIONS None DO NOT TAKE UNTIL YOU TALK TO YOUR DOCTOR None RECONCILING PROVIDER(S) 02/03/18 10:18:54 EDT Electronically Signed by Simone Whalen MD TraMADol (traMADol 50 mg oral tablet) 02/03/18 10:14:56 EDT Electronically Signed by Simone Whalen MD scopolamine (scopolamine 1.5 mg transdermal film, extended release) 01/29/18 12:13:19 EDT Electronically Signed by Niurka Hernandez MD acetaminophen-HYDROcodone (acetaminophen-HYDROcodone 325 mg-5 mg oral tablet) carvedilol (carvedilol 12.5 mg oral tablet) docusate (docusate sodium 100 mg oral tablet) hydroCHLOROthiazide (hydroCHLOROthiazide 12.5 mg oral tablet) insulin aspart-insulin aspart protamine (NovoLOG MIX 70/30) insulin lispro (HumaLOG 100 units/mL injectable solution) losartan (losartan 100 mg oral tablet) Inpatient Medication History (active at the time of summary): Do not administer these medications until re-evaluated by a provider at the next level of care. Scopolamine 1.5 mg Patch (Transderm Scop GEq) (Scopolamine Patch) 1.5 mg = 1 Patch, TransDermal, Patch, Q3Days,, x 3 Day(s), 02/03/18 10:13:00 EDT COMMENTS and SPECIAL INSTRUCTIONS: *Remove Old Patch Before Applying New Patch* Product is formulated to release 1 mg over 3 days Remove if patient to go for MRI and replace once patient returns from MRI Patch Removal 1 Patch, TransDermal, Patch, Q3Days Acetaminophen 325 mg Tab (Tylenol GEq) (Tylenol) 650 mg = 2 Tab, PO, Tab, Q4h,, x 30 Day(s), 02/02/18 10:41:00 EDT Last Dose: 02/03/18 11:16:00 PEG Powder 17 Gm (MiraLax GEq) (MiraLax) 17 Gm = 1 Packet, PO, Powder, Daily,, x 30 Day(s), 02/01/18 11:42:00 EDT Last Dose: 02/02/18 09:55:00 COMMENTS and SPECIAL INSTRUCTIONS: Mix with 4 to 8 oz. of water, juice, soda, coffee, or tea until completely dissolved. Famotidine (RTU) (famotidine) 20 mg, IVPB, BID Last Dose: 02/03/18 08:21:00 Insulin MIX 75/25 Lispro Protamine/Lispro 3 mL Pen (HumaLOG MIX GEq) (Insulin MIX 75/25 Lispro Protamine-Lispro (HumaLOG 75/25)) 15 Unit = 0.15 mL, Subcut, Inject, BID,, x 30 Day(s), 01/30/18 9:56:00 EDT Last Dose: 02/03/18 08:25:00 Insulin Human Regular 100 Units/mL 1 mL (NovoLIN/HumuLIN GEq) (NT) (NovoLIN/HumuLIN-R Sliding Scale*) Aggressive Scale, Inject, Subcut, ac+bedtime, x 30 Day(s), 01/29/18 11:04:00 EDT Last Dose: 02/03/18 13:47:00 Vitamin-Multi Tab (Thera Tab GEq) (Multivitamin Tab*) 1 Tab, PO, Tab, Daily, x 30 Day(s), 01/28/18 18:55:00 EDT Last Dose: 02/03/18 08:21:00 Carvedilol 12.5 mg Tab (Coreg GEq) (carvedilol) 12.5 mg = 1 Tab, PO, Tab, Daily,, x 30 Day(s), 01/28/18 21:50:00 EDT Last Dose: 02/03/18 08:21:00 hydroCHLOROthiazide 25 mg Tab (Hydrodiuril GEq) (hydroCHLOROthiazide) 12.5 mg = 0.5 Tab, PO, Tab, Daily,, x 30 Day(s), 01/28/18 21:50:00 EDT Last Dose: 02/03/18 08:21:00 Losartan 50 mg Tab (Cozaar GEq) (losartan) 100 mg = 2 Tab, PO, Tab, Daily,, x 30 Day(s), 01/28/18 21:50:00 EDT Last Dose: 02/03/18 08:22:00 Docusate Sodium 100 mg Cap (Colace GEq) (Colace*) 100 mg = 1 Cap, PO, Cap, BID,, x 30 Day(s), 01/28/18 18:55:00 EDT Last Dose: 02/03/18 08:21:00 Pharmacy Communication Order (Pharmacy Communication Order.) Misc, Comm, Communication, x 30 Day(s),, 01/28/18 19:25:00 EDT Ondansetron 2 mg/mL Inj 2 mL (Zofran GEq) (Zofran Inj*) 4 mg = 2 mL, IV Push, Inject, Q6h,, x 30 Day(s), 01/28/18 18:55:00 EDT Last Dose: 02/03/18 11:16:00 TraMADol 50 mg Tab (Ultram GEq) (TraMADol) 50 mg = 1 Tab, PO, Tab, Q4h, PRN, Pain - Moderate, x 30 Day(s), 02/02/18 10:40:00 EDT Last Dose: 02/03/18 13:52:00 COMMENTS and SPECIAL INSTRUCTIONS: Maximum 400 mg/24 hours (Age 75+ : 300 mg/24 hr) Dextrose 50% Syringe 25 Gm/50 mL (Dextrose 50% Syringe*) 12.5 Gm = 25 mL, IV Push, Inject, PRN, PRN, See Comments, x 30 Day(s), 01/29/18 11:04:00 EDT Glucagon 1 mg Vial (Glucagen GEq) (Glucagon) 1 mg, Subcut, Inject, PRN, PRN, See Comments, x 30 Day(s), 01/29/18 11:04:00 EDT COMMENTS and SPECIAL INSTRUCTIONS: If IV access is not obtainable: For hypoglycemia blood glucose less than 60 mg/dL and patient cannot eat or drink. Repeat in 15 minutes if glucose remains less than 60 mg/dL. HYDROmorphone 1 mg/mL INJ 1 mL (Dilaudid GEq) (HYDROmorphone Inj) 0.5 mg = 0.5 mL, IV Push, Inject, Q2h, PRN, Pain - Moderate, x 30 Day(s), 01/28/18 22:40:00 EDT Last Dose: 02/02/18 13:49:00 Magnesium Hydroxide 8% Susp 30 mL (Milk of Magnesia) (Milk of Magnesia 8%) 30 mL, PO, Susp, Bedtime, x 30 Day(s), PRN Constipation, 2,400 mg, 01/28/18 18:55:00 EDT Acetaminophen 325 mg Tab (Tylenol GEq) (Tylenol*) 650 mg = 2 Tab, PO, Tab, Q4h, PRN, Pain-Mild/Fever greater than 100. 4 (38C), x 30 Day(s), 01/28/18 18:55:00 EDT Last Dose: 02/01/18 22:07:00 Prochlorperazine 5 mg/mL Vial 2 mL (Compazine GEq) (Compazine Inj*) 10 mg = 2 mL, IV Push, Inject, Q4h, PRN, See Comments, x 30 Day(s), 01/28/18 18:55:00 EDT Last Dose: 02/02/18 13:49:00 INACTIVE MEDICATIONS GIVEN IN THE LAST 36 HOURS: Medications Discontinued or Completed in the last 36 hours: Acetaminophen 325 mg Tab (Tylenol GEq)(unverified) 650 mg = 2 Tab, PO, Tab,, 02/02/18 10:41:00 EDT Last Dose: 02/03/18 11:16:00 Ondansetron 2 mg/mL Inj 2 mL (Zofran GEq)(unverified) 4 mg = 2 mL, IV Push, Inject,, 01/28/18 18:55:00 EDT Last Dose: 02/03/18 11:16:00 Insulin Human Regular 100 Units/mL 1 mL (NovoLIN/HumuLIN GEq) (NT)(unverified) Aggressive Scale, Inject, Subcut, 01/29/18 11:04:00 EDT Last Dose: 02/03/18 13:47:00 Insulin MIX 75/25 Lispro Protamine/Lispro 3 mL Pen (HumaLOG MIX GEq)(unverified) 15 Unit = 0.15 mL, Subcut, Inject,, 01/30/18 9:56:00 EDT Last Dose: 02/03/18 08:25:00 Vitamin-Multi Tab (Thera Tab GEq)(unverified) 1 Tab, PO, Tab, 01/28/18 18:55:00 EDT Last Dose: 02/03/18 08:21:00 Docusate Sodium 100 mg Cap (Colace GEq)(unverified) 100 mg = 1 Cap, PO, Cap,, 01/28/18 18:55:00 EDT Last Dose: 02/03/18 08:21:00 Carvedilol 12.5 mg Tab (Coreg GEq)(unverified) 12.5 mg = 1 Tab, PO, Tab,, 01/28/18 21:50:00 EDT Last Dose: 02/03/18 08:21:00 Losartan 50 mg Tab (Cozaar GEq)(unverified) 100 mg = 2 Tab, PO, Tab,, 01/28/18 21:50:00 EDT Last Dose: 02/03/18 08:22:00 hydroCHLOROthiazide 25 mg Tab (Hydrodiuril GEq)(unverified) 12.5 mg = 0.5 Tab, PO, Tab,, 01/28/18 21:50:00 EDT Last Dose: 02/03/18 08:21:00 Acetaminophen 325 mg Tab (Tylenol GEq)(unverified) 650 mg = 2 Tab, PO, Tab,, 02/02/18 10:41:00 EDT Last Dose: 02/03/18 08:22:00 Insulin Human Regular 100 Units/mL 1 mL (NovoLIN/HumuLIN GEq) (NT)(unverified) Aggressive Scale, Inject, Subcut, 01/29/18 11:04:00 EDT Last Dose: 02/03/18 08:23:00 Ondansetron 2 mg/mL Inj 2 mL (Zofran GEq)(unverified) 4 mg = 2 mL, IV Push, Inject,, 01/28/18 18:55:00 EDT Last Dose: 02/03/18 05:44:00 Acetaminophen 325 mg Tab (Tylenol GEq)(unverified) 650 mg = 2 Tab, PO, Tab,, 02/02/18 10:41:00 EDT Last Dose: 02/03/18 05:44:00 Acetaminophen 325 mg Tab (Tylenol GEq)(unverified) 650 mg = 2 Tab, PO, Tab,, 02/02/18 10:41:00 EDT Last Dose: 02/03/18 01:25:00 Insulin Human Regular 100 Units/mL 1 mL (NovoLIN/HumuLIN GEq) (NT)(unverified) Aggressive Scale, Inject, Subcut, 01/29/18 11:04:00 EDT Last Dose: 02/02/18 21:14:00 Docusate Sodium 100 mg Cap (Colace GEq)(unverified) 100 mg = 1 Cap, PO, Cap,, 01/28/18 18:55:00 EDT Last Dose: 02/02/18 21:10:00 Insulin MIX 75/25 Lispro Protamine/Lispro 3 mL Pen (HumaLOG MIX GEq)(unverified) 15 Unit = 0.15 mL, Subcut, Inject,, 01/30/18 9:56:00 EDT Last Dose: 02/02/18 21:14:00 Acetaminophen 325 mg Tab (Tylenol GEq)(unverified) 650 mg = 2 Tab, PO, Tab,, 02/02/18 10:41:00 EDT Last Dose: 02/02/18 21:10:00 Ondansetron 2 mg/mL Inj 2 mL (Zofran GEq)(unverified) 4 mg = 2 mL, IV Push, Inject,, 01/28/18 18:55:00 EDT Last Dose: 02/02/18 21:15:00 Insulin Human Regular 100 Units/mL 1 mL (NovoLIN/HumuLIN GEq) (NT)(unverified) Aggressive Scale, Inject, Subcut, 01/29/18 11:04:00 EDT Insulin Human Regular 100 Units/mL 1 mL (NovoLIN/HumuLIN GEq) (NT)(unverified) Aggressive Scale, Inject, Subcut, 01/29/18 11:04:00 EDT Last Dose: 02/02/18 13:50:00 Carvedilol 12.5 mg Tab (Coreg GEq)(unverified) 12.5 mg = 1 Tab, PO, Tab,, 01/28/18 21:50:00 EDT Last Dose: 02/02/18 09:55:00 Losartan 50 mg Tab (Cozaar GEq)(unverified) 100 mg = 2 Tab, PO, Tab,, 01/28/18 21:50:00 EDT Last Dose: 02/02/18 09:55:00 hydroCHLOROthiazide 25 mg Tab (Hydrodiuril GEq)(unverified) 12.5 mg = 0.5 Tab, PO, Tab,, 01/28/18 21:50:00 EDT Last Dose: 02/02/18 09:55:00 Vitamin-Multi Tab (Thera Tab GEq)(unverified) 1 Tab, PO, Tab, 01/28/18 18:55:00 EDT Last Dose: 02/02/18 09:55:00 Docusate Sodium 100 mg Cap (Colace GEq)(unverified) 100 mg = 1 Cap, PO, Cap,, 01/28/18 18:55:00 EDT Last Dose: 02/02/18 09:55:00 Insulin MIX 75/25 Lispro Protamine/Lispro 3 mL Pen (HumaLOG MIX GEq)(unverified) 15 Unit = 0.15 mL, Subcut, Inject,, 01/30/18 9:56:00 EDT Last Dose: 02/02/18 09:57:00 PEG Powder 17 Gm (MiraLax GEq)(unverified) 17 Gm = 1 Packet, PO, Powder,, 02/01/18 11:42:00 EDT Last Dose: 02/02/18 09:55:00 Insulin Human Regular 100 Units/mL 1 mL (NovoLIN/HumuLIN GEq) (NT)(unverified) Aggressive Scale, Inject, Subcut, 01/29/18 11:04:00 EDT Last Dose: 02/02/18 09:57:00 TraMADol 50 mg Tab (Ultram GEq) 50 mg = 1 Tab, PO, Tab, Once, PRN, Pain - Moderate, 02/03/18 15:24:00 EDT Last Dose: 02/03/18 15:29:00 HydrALAZINE 20 mg/mL Vial 1 mL (Apresoline GEq) 10 mg = 0.5 mL, IV Push, Inject, Q4h, PRN, Blood Pressure - See Parameters in Order, x 30 Day(s), 01/28/18 18:51:00 EDT Last Dose: 02/02/18 09:55:00 Famotidine (RTU)(unverified) 20 mg, IVPB Last Dose: 02/03/18 08:21:00 Famotidine (RTU)(unverified) 20 mg, IVPB Last Dose: 02/02/18 21:26:00 Famotidine (RTU)(unverified) 20 mg, IVPB Last Dose: 02/02/18 09:56:00 FOLLOW-UP APPOINTMENTS: Provider: Specialty: Address: Date: No PCP Physician Family Practice; Internal Medicine Follow- up as needed Provider: Specialty: Address: Date: [facility] [address] [address] (8) Follow-up as needed Comment: Follow-up as needed only TRANSFER ORDERS/INSTRUCTIONS: 02/02/18 12:30:29 EDT- Electronically signed by Simone Whalen MD Transfer Details Admit to Care of Provider: Admit to covering physician. Transfer Level of Care: Other: In patient rehab facility. Transfer Orders Transfer Code Status: Full Resuscitation. ADVANCE DIRECTIVE/HEALTH CARE DECISIONS: Advance Directive/Health Care Decisions Executed by Patient: Yes Advance Directive/Health Care Decisions Type: Medical Power of Rental Clerk [employer] Equipment Copy of Advance Directive/Health Care Decisions on Chart: Patient/Family asked to provide copy SELECTED LAB RESULTS Lab Result Order Date Hemoglobin 13.8 gm/dL 02/03/2018 Hematocrit 39.5 % 02/03/2018 WBC Count 6.5 thou/mcL 02/03/2018 Platelet Count 294 thou/mcL 02/03/2018 Prothrombin Time (PT) 12.3 Sec 01/28/2018 INR 1.08 01/28/2018 Sodium Level 129 mMol/L 02/03/2018 Potassium Level 3.8 mMol/L 02/03/2018 Creatinine 1.01 mg/dL 02/03/2018 BUN 15 mg/dL 02/03/2018 Glucose Level 138 mg/dL 02/03/2018 X-RAY EXAMS: XR Chest 1 View - 01/28/18 18:11:47 See Radiology Report for More Detail Physician Signature Date/Time PATIENT EDUCATION Subdural Hematoma; Col MCE Trauma Aftercare Instructions generic ([id number]) PROGRESS NOTES Observed: 02/03/2018 Status: F Source: [facility] 1:42 PM HEALTH SYSTEM REPOSITORY Assessment/Plan 1. Consult: Traumatic SDH, right temporal lobe contusion, cervical spinal stenosis -Imaging: CT head w/o contrast 01/31/18, stable. MRV on 01/29 negative for dural venous thrombosis. MRI C spine w/o contrast on 01/29 revealed severe stenosis C4-5 with cord flattening. Will followup with pt outpatient after recovery from TBI. Collar removed after cervical flexion/extension films revealed no instability. -Neuro checks q 4 hours, call PEREZ with any changes. -Vitals Signs: Afebrile. Room air. SBP: 150mmHg. SBP range: 150-174 -Pain control: Dilaudid, Tramadol, Tylenol. -Goal keep blood sugar < 180; Blood sugar range: 132-239 -Voiding independently. -Activity: Out of bed for meals. Up with assistance. 1) PT/OT recommendations: IPR --PT walked 50' today. -Diet: 75gm -Bowel regimen per primary. 2. Other chronic medical conditions -Trauma managing. 3. 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 4. DISPOSITION/PLAN: -Pending clinical course. -PT recommends: IPR. Plan is for pt to transfer to [facility] via EMS transport at 1600. -Asked nurse to update trauma about pt's headache prior to discharge. -Plan is to have patient follow up outpatient in 6- 8 weeks. To be discussed with Dr. Flores on rounds. Subjective Pt reports his head is hurting alot. Pt states, when am I leaving today? Pt states, his tylenol is not helping. Pt states, he just took some tramadol. Pt states, he doesn't think it is going to help . Pt denies any new numbness, tingling, or weakness. Pt denies chest pain, shortness of breath, nausea, vomiting, or diarrhea. Objective Vitals and Measurements (Last Charted - 24 Hours) T: 98.5 F HR: 67 RR: 14 BP: 150/86 SpO2: 95% WT: 74.1 kg Physical Exam General: Pt resting comfortably in bed. No acute distress. Afebrile. Neuro: Alert and oriented x 4. Appropriate, calm, and cooperative. Face symmetrical, sensation intact; tongue midline. Speech clear, fluent and appropriate. PERRLA 2 mm and briskly reactive bilaterally. EOM intact. No double vision or blurred vision noted. Headache. Visual way without deficit upon confrontational testing. Palate movement symmetrica l. Shoulder shrug 5/5. Ecchymotic around bilateral eyes. Bilateral Upper Extremities: Grasps: 5/5. finger abduction/adduction 5/5. Deltoids/Biceps/Triceps: 5/5. No drift or dysmetria noted. Light touch sensation intact. Bilateral Lower Extremities: Hip flexion/extension: 5/5. Knee flexion/extension: 5/5. Plantar flexion: 5/5 Dorsi flexion: 5/5. Light touch sensation intact. No leg drift noted. Deep tendon reflexes: Nance's negative. Patellar: 2+ Clonus negative. Babinski negative. Peripheral Vascular: Radial and pedal pulse palpable bilaterally. No edema, erythema, warmth, or tenderness noted on bilateral lower extremities. Pulmonary: Respirations regular and unlabored. No cough noted. GI: Abdomen soft and nontender. Flatus noted. : Voiding independently. Skin: [place], warm, dry and intact. 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 All follow-up actions were taken by Patient Care Services. Performed By: #### [id number] #### TELCOR POINT OF CARE PROGRESS NOTES Observed: 02/03/2018 Status: C Source: [facility] JENNIFER 9:23 AM HEALTH SYSTEM REPOSITORY Patient: ONEIDA QUISPE MRN: ([id number] Age: 57 years Sex: Male : 1960 Associated Diagnoses: None Author: Koby BRADY, Simone TRAUMA PROGRESS NOTE Supervising Physician Comments ACUTE PROBLEMS and PLANS: S/P fall down stairs Closed head injury with SDH; TBI - right frontal SAH 5mm with 3mm shift to left - Neurosurgery consult; assistance appreciated - non-op managment - repeat CT head shows stable bleed - MRV completed; unremarkable - improved neuologic status, more responsive - continue serial neuro checks - increase activity and diet as per NS recs - headache and nausea - improving w/ NAC this am - pain control; antiemetics - cog eval - speech swallow eval; ok for solids and thin liquids Skull fx; L squamous temporal bone fx - NOM - pain control - serial neuro checks Cervical spine pain - NS consult and mangement; assistance appreciated - CS CT stable; known CS stenosis with prior surgical intervention 3 years ago - residual unsteadiness in mobility - MRI CS 01/29 AM as per NS recs- notes severe narrowing C4- 5 with flattening of cord - flex/ex films 01/30 do not demonstrate CS instability Nausea and Vomiting - improved this am after BM overnight - on rounds noted wosened condition related to Morrill medication - disclosed taking medication on empty stomach - may have component of post-concussive sx with loss of taste, ext - norco d/c, tramadol and tylenol started - cont bowel reg - Pepcid BID - po intake improving Co-morbid conditions HTN - HTN managment with goal BP < 140 per NS recs - continue home meds DM - target glucose < 180 - POCT glucose monitoring - ASSI coverage prn Disposition -PM and R consult, ok for IPR today CO-MORBIDITIES: HTN, DM, HLD, Cervical spine stenosis (prior op), prior smoker (heavy) PREVENTIVE: GI: Pepcid/ 75gm diet, SSI DVT: SCDs, mobilize Pain: Tylenol, Tramadol, Dilaudid Pain Score: 2 - 10 out of 10 SYSTEMS BASED EXAMINATION: Neuro: AAOx3; speech clear +FC; Motor/sensory grossly intact HEENT: Vision normal, PERRL, EOMI, parietal headache CV: HRRR s murmur, NSR per bedside monitor; peripheral pulses 2+; no edema Pulm: BS=B, CTA with good aeration throughout Abd: Soft, non TTP; normoactive bowel sounds; (+) flatus, +BM : Stubbs in place; Urine clear/yellow FEN: MVIF/WNL/FLD ID/LINES: PIV UOP = void x2 BM = 1x RADIOLOGY: REPORT EXAMINATION TYPE: CT Head w/o Contrast DATE OF EXAM ORDERED: 01/30/2018 5:14 AM HISTORY: Decision Support; Head trauma, mod-severe, GCS<13, initial exam, COMPARISON: NONE FINDINGS: Stable right-sided subdural hematoma. There is some decreased parenchymal density within the lateral aspect of the right temporal lobe. This is consistent with a temporal lobe contusion. A small amou nt of subarachnoid and/or parenchymal blood is seen surrounding the contusion. Blood is layering in the occipital horns of the lateral ventricles similar to the prior exam. No significant midline shift is seen. IMPRESSION: No significant interval change in the appearance of the brain. Felicity Rodriguez thanks you for the opportunity to care for your patient. Workstation ID: [id number] - [id number] Signature Line FINAL REPORT Dictated By: Terry Cunha MD 01/30/2018 05:35 Assigned Physician: Terry Cunha MD REPORT CERVICAL SPINE 2 VIEWS, FLEXION EXTENSION PROJECTIONS: CLINICAL STATEMENT: Trauma. Fall. COMPARISON: CT 01/28/2015 FINDINGS: Solid fusion with plate and screw fixation noted at C3-4. There is disc space narrowing at the C4-5 disc level with anterior displacement of C4 by approximately 4-5 mm. No significant instability note d between flexion and extension. There is marked disc space narrowing and marginal osteophytes at C5-6. No acute fracture or focal prevertebral soft tissue swelling identified. IMPRESSION: Severe degenerative change. C4-5 anterolisthesis. No significant instability. Felicity Rodriguez thanks you for the opportunity to care for your patient. Workstation ID: [id number] - [id number] Signature Line FINAL REPORT Dictated By: Jarocho Tripp MD 01/29/2018 15:58 Assigned Physician: Jarcoho Tripp MD REPORT EXAMINATION TYPE: CT Head w/o Contrast DATE OF EXAM ORDERED: 01/29/2018 5:40 AM HISTORY: Decision Support; Head trauma, delayed recovery, follow up ; Head trauma, no neuro decline, follow up, COMPARISON: NONE FINDINGS: On today's examination there is a small hematoma level within both occipital horns of the left lateral ventricle. Persistent subdural hematoma in the lateral right frontal and temporal regions. On tod ay's examination note is made of an empty delta sign the torcula. This raises the question of a possible dural sinus thrombosis. Consider correlation with CTV. IMPRESSION: Interval development of intraventricular blood. There is also suggestive evidence of a dural venous thrombosis present. Follow-up with CTV is recommended. Felicity Rodriguez thanks you for the opportunity to care for your patient. Workstation ID: [id number] - PS360 Signature Line FINAL REPORT Dictated By: Terry Cunha MD 01/29/2018 05:45 Assigned Physician: Terry Cunha MD Vital Signs (Past 36 Hours) Last Charted Minimum Maximum Temperature 97.9 (02/03 08:00) 97.9 (02/03 08:00) 98.6 (02/03 05:50) Pulse 84 (02/03 08:00) 74 (02/02 02:28) 91 (02/02 14:14) Resp 18 (02/03 08:00) 12 (02/02 04:28) 18 (02/03 08:00) Pulse Ox 96 (02/03 08:00) 92 (02/03 01:27) 96 (02/03 08:00) Pain Score 0 (02/03 06:53) 0 (02/03 06:53) 9 (02/02 00:23) BP 174/91 (02/03 08:00) Minimum Maximum Systolic BP 144/70 (02/02 14:14) 178/84 (02/02 09:55) Diastolic BP 146/68 (02/02 06:36) 174/91 (02/03 08:00) I and O Summary Begin Date: 02/02/18 00:00 End Date: 02/02/18 23:59 Input: 240 Output: 0 Stools: 0 Other Output: 150 Total Output: 150 I and O Difference: 90 Labs - Last 36 hours (Max 2 / lab test) CHEMISTRY Sodium 129 (02/03 04:57) 132 (02/02 10:22) Potassium 3.8 (02/03 04:57) 4.2 (02/02 10:) Chloride 94 (02/03 04:57) 98 (02/02 10:) CO2 23 (02/03 04:57) 20 (02/02 10:) Glucose 138 (02/03 04:57) 245 (02/02 10:) Glucose POCT No result BUN 15 (02/03 04:57) 15 (02/02 10:) Creatinine 1.01 (02/03 04:57) 1.02 (02/02 10:) Calcium Total 8.9 (02/03 04:57) 9.0 (02/02 10:) Magnesium 2.0 (02/02 05:) HEMATOLOGY WBC 6.5 (02/03 04:57) 5.9 (02/02 05:28) RBC 4.44 (02/03 04:57) 4.23 (02/02 05:) Hb 13.8 (02/03 04:57) 13.5 (02/02 05:28) Hematocrit 39.5 (02/03 04:57) 37.5 (02/02 05:28) Platelets 294 (02/03 04:57) 254 (02/02 05:28) MCV 89.0 (02/03 04:57) 88.7 (02/02 05:28) MCH 31.2 (02/03 04:57) 31.9 (08/20 05:28) RDW 12.8 (02/03 04:57) 12.6 (02/02 05:28) MCHC 35.1 (02/03 04:57) 36.0 (02/02 05:) Neutrophil Ab No result Monocyte Ab No result Eosinophil Ab No result Basophil Ab No result Lymphocyte Ab No result OTHER LABS Anion Gap 12.0 mMol/L (02/03 04:57) 14.0 mMol/L (02/02 10:) Est CrCl IBW (mL/min)-RX 76.17 mL/min (02/03 04:57) 75.42 mL/min (02/02 10:) GFR Est. Non >60 mL/min (02/02 10:) GFR Est. Anais >60 mL/min (02/02 10:) MPV 7.1 FL (02/03 04:57) 6.9 FL (02/02 05:28) Health Status Allergies Allergic Reactions (All) NKA Medication List (Selected) Inpatient Medications Ordered Colace*: 100 mg, PO, BID Compazine Inj*: 10 mg, IV Push, Q4h, PRN: See Comments Dextrose 50% Syringe*: 12.5 Gm, IV Push, PRN, PRN: See Comments Glucagon: 1 mg, Subcut, PRN, PRN: See Comments HYDROmorphone Inj: 0.5 mg, IV Push, Q2h, PRN: Pain - Moderate HydrALAZINE Inj: 10 mg, IV Push, Q6h, PRN: Blood Pressure - See Parameters in Order Insulin MIX 75/25 Lispro Protamine-Lispro (HumaLOG 75/25): 15 Unit, Subcut, BID Milk of Magnesia 8%: 2,400 mg, PO, Bedtime, PRN: Constipation MiraLax: 17 Gm, PO, Daily Multivitamin Tab*: 1 Tab, PO, Daily NovoLIN/HumuLIN-R Sliding Scale*: Aggressive Scale, Subcut, ac+bedtime Pharmacy Communication Order.: No anticoagulation, antiplatelets, NSAID, Comm, Communication TraMADol: 50 mg, PO, Q4h, PRN: Pain - Moderate Tylenol*: 650 mg, PO, Q4h, PRN: Pain-Mild/Fever greater than 100.4 (38C) Tylenol: 650 mg, PO, Q4h Zofran Inj*: 4 mg, IV Push, Q6h carvedilol: 12.5 mg, PO, Daily famotidine: 20 mg, 100 mL/hr, IVPB, BID hydroCHLOROthiazide: 12.5 mg, PO, Daily losartan: 100 mg, PO, Daily Prescriptions Prescribed acetaminophen-HYDROcodone 325 mg-5 mg oral tablet: 1 Tab, PO, Q4h, Narcotic pain medications can be addictive, wean yourself from them as tolerated., PRN: as needed for pain, 42 Each, 0 Refill(s) docusate sodium 100 mg oral tablet: 1 Tab, PO, BID, for 14 Day(s), with plenty of water, PRN: as needed for constipation, 28 Tab, 0 Refill(s) Documented Medications Documented HumaLOG 100 units/mL injectable solution: Subcut, ac TID, Each, 0 Refill(s) NovoLOG MIX 70/30: Subcut, Once, Each, 0 Refill(s) carvedilol 12.5 mg oral tablet: 1 Tab, PO, Daily, Each, 0 Refill(s) hydroCHLOROthiazide 12.5 mg oral tablet: 1 Tab, PO, Daily, Each, 0 Refill(s) losartan 100 mg oral tablet: 1 Tab, PO, Daily, Each, 0 Refill(s) Physical Examination Last Charted Vital Signs Temperature: 97.9 (02/03 08:00) Pulse: 84 (02/03 08:00) Respiration: 18 (02/03 08:00) BP: 174/91 (02/03 08:00) Activity: Awake (02/03 08:00) Pulse Ox: 96 (02/03 08:00) Oxygen Delivery: Room air (02/03 08:00) Pain Score: 0 (02/03 06:53) Seen and examined on rounds with residents He is doing better and working with PT. ABd is soft and to rehab soon GLUCOSE POCT Collected: 02/03/2018 Status: F Source: [facility] (UPLOADED) 7:44 AM HEALTH SYSTEM REPOSITORY TYPE CODE TESTS RESULT OUT OF REFERENCE UNITS RANGE LAB 2340-8(LOIN 70-110 mg/dL C) High Glucose 210 POCT-LAB Result Comment: Treatment ranges and critical values established by Patient Care Services. All follow-up actions were taken by Patient Care Services. Performed By: #### 2430-8 #### [facility] CBC Collected: 02/03/2018 Status: F Source: [facility] 4:57 AM HEALTH SYSTEM REPOSITORY TYPE CODE TESTS RESULT OUT OF REFERENCE UNITS RANGE LAB 61076-0(LO 6.2-12.1 FL INC) MPV Normal 7.1 LAB 50962-7(LO 11.0-14.8 % INC) RDW Normal 12.8 LAB 43489-4(LO 27.0-34.0 Picograms INC) MCH Normal 31.2 LAB 718-7(LOIN 13.5-17.5 gm/dL C) Normal Hemoglobin 13.8 LAB 82939-7(LO 80.0-97.0 FL INC) MCV Normal 89.0 LAB 83386-5(LO 4.6-10.2 thou/mcL INC) WBC Normal Count 6.5 LAB 85532-4(LO 142-424 thou/mcL INC) Normal Platelet Count 294 LAB 17075-7(LO 32.0-36.0 gm/dL INC) MCHC Normal 35.1 LAB 98947-3(LO 39.0-49.0 % INC) Normal Hematocrit 39.5 LAB 63368-2(LO 4.30-5.70 million/mcL INC) Red Normal Blood Cell 4.44 Count Performed By: #### 90531-5 #### [facility] [address], [place] BASIC METABOLIC PANEL Collected: 02/03/2018 Status: F Source: [facility] 4:57 AM HEALTH SYSTEM REPOSITORY TYPE CODE TESTS RESULT OUT OF RANGE REFERENCE UNITS LAB 95024-8(LO 8.9-10.3 mg/dL INC) Calcium Normal Total 8.9 LAB 27791-3(LO 70-110 mg/dL INC) High Glucose Level 138 LAB 2028-9(ABRAHAM 22-32 mMol/L NC) Carbon Normal Dioxide Level 23 LAB 2951-2(ABRAHAM 136-145 mMol/L NC) Low Sodium Level 129 LAB 68329-5(LO 8-20 mg/dL INC) BUN Normal 15 LAB 2823-3(ABRAHAM 3.6-5.1 mMol/L NC) Normal Potassium Level 3.8 LAB 2075-0(ABRAHAM 98-107 mMol/L NC) Low Chloride Level 94 LAB 2160-0(ABRAHAM 0.60-1.30 mg/dL NC) Normal Creatinine 1.01 LAB 30846-0(LO 6.0-18.0 mMol/L INC) Anion Normal Gap 12.0 Result Comment: PLEASE NOTE:The calculated Anion Gap(AGAP) does not include Potassium. Performed By: #### 54285-4 #### [facility] [address], [place] GLUCOSE POCT Collected: 02/02/2018 Status: F Source: [facility] (UPLOADED) 9:13 PM HEALTH SYSTEM REPOSITORY TYPE CODE TESTS RESULT OUT OF REFERENCE UNITS RANGE LAB 2340-8(LOIN 70-110 mg/dL C) High Glucose 154 POCT-LAB Result Comment: Treatment ranges and critical values established by Patient Care Services. All follow-up actions were taken by Patient Care Services. Performed By: #### 2430-8 #### [facility] GLUCOSE POCT Collected: 02/02/2018 Status: F Source: [facility] (UPLOADED) 5:03 PM HEALTH SYSTEM REPOSITORY TYPE CODE TESTS RESULT OUT OF REFERENCE UNITS RANGE LAB 2340-8(LOIN 70-110 mg/dL C) High Glucose 132 POCT-LAB Result Comment: Treatment ranges and critical values established by Patient Care Services. All follow-up actions were taken by Patient Care Services. 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 ERNIE for Dr. Flores. Consulted for: Traumatic SDH Right temporal lobe contusion Cervical stenosis Surgical History Surgical/Procedure Hx No active procedure history items have been selected or recorded. Procedure No surgical intervention at this time Subjective Pt laying in bed resting. Rouses to name. Admits 3/10 pain. Denies headache, change in vision, nausea, vomiting, numbness, tingling, and new weakness. Voiding normally. States last BM occurred toda y. States appetite is decreased. On 75 gm carb/meal diet. Objective Last Charted Vital Signs Temperature: 98.1 (02/02 12:23) Pulse: 91 (02/02 14:14) Respiration: 16 (02/02 12:23) BP: 144/70 (02/02 14:14) Pulse Ox: 95 (02/02 12:23) Oxygen Delivery: Room air (02/02 13:50) Pain Score: 6 (02/02 13:49) Pt awake, alert, and afebrile laying in bed in NAD. Oriented x 3. Speech clear. Face symmetrical. Pupils equal, round. RUE grasp/bicep/tricep/deltoid 5/5. No Corky sign. No drift. Chczrr-qg-zmej w/o dysmetria. Sensation to light touch intact. LUE grasp/bicep/tricep/deltoid 5/5. No Corky sign. No drift. Xyvwya-dw-dpek w/o dysmetria. Sensation to light touch intact. RLE hip flexion/hip extension/hip abduction/hip adduction/knee flexion/knee extension/dorsiflexion/plantar flexion 5/5. No drift. No Babinski. No clonus. Sensation to light touch intact. LLE hip flexion/hip extension/hip abduction/hip adduction/knee flexion/knee extension/dorsiflexion/plantar flexion 5/5. No drift. No Babinski. No clonus. Sensation to light touch intact. Respirations unlabored on room air. Health Status Medication List Medications reviewed. Assessment Diagnosis Cervical spinal stenosis (ISO76-LV M48.02, Working, Medical). Traumatic intracranial subdural hemorrhage (RYB70-CH S06.5X9A, Working, Medical). Contusion of right temporal lobe (SFE73-WE S06.319A, Working, Medical). Plan 1. Traumatic SDH, right temporal lobe contusion, cervical spinal stenosis a. Most recent CT head w/o contrast on 01/31 stable. b. MRV on 01/29 negative for dural venous thrombosis. c. MRI C spine w/o contrast on 01/29 revealed severe stenosis C4-5 with cord flattening. Will followup with pt outpt after recovery from TBI. d. Collar removed after cervical flexion/extension films revealed no instability. e. Goal SBP less than 150 mmHg. 1) Goal not being met. Will order PRN medications. f. Do not give dextrose-containing solutions. g. Frequent neuro exams. Please call neurosurgery PEREZ with changes in exam. h. Able to ambulate 50 ft with supervision. Continue therapy. i. Pain controlled at time of exam. j. 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 k. VTE prophylaxis with SCDs. 2. DM a. Recommend glucose goal less than 180. b. Trauma managing. 3. Other medical conditions a. Trauma managing. 4. Disposition: Pending clinical course. Plan at discharge is for pt to go to [facility]. Discussed with Dr. Flores on rounds this morning. XR BARIUM SWALLOW W Observed: 02/02/2018 Status: F Source: [facility] CINE/VIDEO 1:31 PM HEALTH SYSTEM REPOSITORY EXAMINATION TYPE: XR Barium Swallow w Cine/Video DATE OF EXAM : 02/02/2018 1:31 PM HISTORY: Dysphagia COMPARISON: Lateral cervical spine radiographs 01/29/2018 FINDINGS: A swallow study was performed, utilizing lateral fluoroscopic control to observe ingestion of multiple barium consistencies. The exam was performed in conjunction with the speech therapist. Thin by teaspoon: Laryngeal penetration, no padilla aspiration demonstrated. Thin by cup: No laryngeal penetration nor padilla aspiration is identified. Applesauce by teaspoon: No laryngeal penetration nor padilla aspiration is identified. Thin by cup with multiple swallows: No laryngeal penetration nor padilla aspiration is identified. Total fluoroscopic time was 66 seconds. Total dose was 29.27 mGy. Status post anterior fusion at C3-C4 utilizing metallic plate and fixation screws, unchanged in alignment since the comparison 01/29/2018 exam. IMPRESSION: 1. Laryngeal penetration without evidence of padilla aspiration, utilizing thin barium consistency by teaspoon. 2. No evidence of laryngeal penetration nor padilla aspiration with thin barium consistency by cup or applesauce by teaspoon. 3. Postsurgical changes consisting of anterior fusion at C3-C4, unchanged in alignment since the 01/29/2018 exam. 4. Please refer to speech therapist's report for further details. Felicity Rodriguez thanks you for the opportunity to care for your patient. Workstation ID: [id number] - [id number] FINAL REPORT Dictated By: Lance Vaughan MD 02/02/2018 14:13 Assigned Physician: Lance Vaughan MD Reviewed and Electronically Signed By: Lance Vaughan MD 02/02/2018 14:16 Transcribed by: SHAYNE 02/02/2018 14:13 Technologist: HT GLUCOSE POCT Collected: 02/02/2018 Status: F Source: [facility] (UPLOADED) 12:17 PM HEALTH SYSTEM REPOSITORY TYPE CODE TESTS RESULT OUT OF REFERENCE UNITS RANGE LAB 2340-8(LOIN 70-110 mg/dL C) High Glucose 177 POCT-LAB Result Comment: Treatment ranges and critical values established by Patient Care Services. All follow-up actions were taken by Patient Care Services. Performed By: #### 2430-8 #### [facility] GFRAA Collected: 02/02/2018 Status: F Source: [facility] 10:22 AM HEALTH SYSTEM REPOSITORY TYPE CODE TESTS RESULT OUT OF RANGE REFERENCE UNITS LAB 99260-6(LO mL/min INC) GFR Normal Estimated >60 Result Comment: The MDRD equation has not been validated for those over 70 years, women, patients with serious co-morbid conditions, or with extremes of body size, muscle mass of nutritional status. Performed By: #### 71507-3, 55330-6q5, 52362-4 #### [facility] [address], [place] GFRBB Collected: 02/02/2018 Status: F Source: [facility] 10:22 AM HEALTH SYSTEM REPOSITORY TYPE CODE TESTS RESULT OUT OF RANGE REFERENCE UNITS LAB 66077-4(LO mL/min INC) GFR Normal Estimated Non >60 Performed By: #### 09717-0, 11667-8k6, 55654-2 #### [facility] [address], [place] BASIC METABOLIC PANEL Collected: 02/02/2018 Status: F Source: [facility] 10:22 AM HEALTH SYSTEM REPOSITORY TYPE CODE TESTS RESULT OUT OF RANGE REFERENCE UNITS LAB 2951-2(ABRAHAM 136-145 mMol/L NC) Low Sodium Level 132 LAB 2028-9(ABRAHAM 22-32 mMol/L NC) Low Carbon Dioxide Level 20 LAB 2075-0(ABRAHAM 98-107 mMol/L NC) Chloride Normal Level 98 LAB 2160-0(ABRAHAM 0.60-1.30 mg/dL NC) Normal Creatinine 1.02 LAB 89803-6(LO 70-110 mg/dL INC) High Glucose Level 245 LAB 46964-5(LO 8-20 mg/dL INC) BUN Normal 15 LAB 27180-7(LO 8.9-10.3 mg/dL INC) Calcium Normal Total 9.0 LAB 38998-6(LO 6.0-18.0 mMol/L INC) Anion Normal Gap 14.0 Result Comment: PLEASE NOTE:The calculated Anion Gap(AGAP) does not include Potassium. LAB 2823-3(LOINC) 3.6-5.1 mMol/L Normal Potassium Level 4.2 Performed By: #### 64388-0, [id number], 76024-3 #### [facility] [address], [place] PROGRESS NOTES Observed: 02/02/2018 Status: C Source: [facility] 8:42 AM HEALTH SYSTEM REPOSITORY Patient: ONEIDA QUISPE MRN: [id number] Age: 57 years Sex: Male : 1960 Associated Diagnoses: None Author: Simone Whalen MD TRAUMA PROGRESS NOTE Supervising Physician Comments ACUTE PROBLEMS and PLANS: S/P fall down stairs Closed head injury with SDH; TBI - right frontal SAH 5mm with 3mm shift to left - Neurosurgery consult; assistance appreciated - non-op managment - repeat CT head shows stable bleed - MRV completed; unremarkable - improved neuologic status, more responsive - continue serial neuro checks - increase activity and diet as per NS recs - headache and nausea - improving w/ NAC this am - pain control; antiemetics - cog eval - speech swallow eval; ok for solids and thin liquids Skull fx; L squamous temporal bone fx - NOM - pain control - serial neuro checks Cervical spine pain - NS consult and mangement; assistance appreciated - CS CT stable; known CS stenosis with prior surgical intervention 3 years ago - residual unsteadiness in mobility - MRI CS 01/29 AM as per NS recs- notes severe narrowing C4- 5 with flattening of cord - flex/ex films 01/30 do not demonstrate CS instability Nausea and Vomiting - improved this am after BM overnight - on rounds noted wosened condition related to Morrill medication - disclosed taking medication on empty stomach - may have component of post-concussive sx with loss of taste, ext - norco d/c, tramadol and tylenol started - cont bowel reg - Pepcid BID - po intake improving Co-morbid conditions HTN - HTN managment with goal BP < 140 per NS recs - continue home meds DM - target glucose < 180 - POCT glucose monitoring - ASSI coverage prn Disposition -PM and R consult, ok for IPR today CO-MORBIDITIES: HTN, DM, HLD, Cervical spine stenosis (prior op), prior smoker (heavy) PREVENTIVE: GI: Pepcid/ 75gm diet, SSI DVT: SCDs, mobilize Pain: Tylenol, Tramadol, Dilaudid Pain Score: 2 - 10 out of 10 SYSTEMS BASED EXAMINATION: Neuro: AAOx3; speech clear +FC; Motor/sensory grossly intact HEENT: Vision normal, PERRL, EOMI, parietal headache CV: HRRR s murmur, NSR per bedside monitor; peripheral pulses 2+; no edema Pulm: BS=B, CTA with good aeration throughout Abd: Soft, non TTP; normoactive bowel sounds; (+) flatus, +BM : Stubbs in place; Urine clear/yellow FEN: MVIF/WNL/FLD ID/LINES: PIV UOP = void x2 BM = 1x RADIOLOGY: REPORT EXAMINATION TYPE: CT Head w/o Contrast DATE OF EXAM ORDERED: 01/30/2018 5:14 AM HISTORY: Decision Support; Head trauma, mod-severe, GCS<13, initial exam, COMPARISON: NONE FINDINGS: Stable right-sided subdural hematoma. There is some decreased parenchymal density within the lateral aspect of the right temporal lobe. This is consistent with a temporal lobe contusion. A small amou nt of subarachnoid and/or parenchymal blood is seen surrounding the contusion. Blood is layering in the occipital horns of the lateral ventricles similar to the prior exam. No significant midline shift is seen. IMPRESSION: No significant interval change in the appearance of the brain. Felicity Rodriguez thanks you for the opportunity to care for your patient. Workstation ID: [id number] - PS360 Signature Line FINAL REPORT Dictated By: Terry uCnha MD 01/30/2018 05:35 Assigned Physician: Terry Cunha MD REPORT CERVICAL SPINE 2 VIEWS, FLEXION EXTENSION PROJECTIONS: CLINICAL STATEMENT: Trauma. Fall. COMPARISON: CT 01/28/2015 FINDINGS: Solid fusion with plate and screw fixation noted at C3-4. There is disc space narrowing at the C4-5 disc level with anterior displacement of C4 by approximately 4-5 mm. No significant instability note d between flexion and extension. There is marked disc space narrowing and marginal osteophytes at C5-6. No acute fracture or focal prevertebral soft tissue swelling identified. IMPRESSION: Severe degenerative change. C4-5 anterolisthesis. No significant instability. Jenners thanks you for the opportunity to care for your patient. Workstation ID: [id number] - PS360 Signature Line FINAL REPORT Dictated By: Jarocho Tripp MD 01/29/2018 15:58 Assigned Physician: Jarocho Tripp MD REPORT EXAMINATION TYPE: CT Head w/o Contrast DATE OF EXAM ORDERED: 01/29/2018 5:40 AM HISTORY: Decision Support; Head trauma, delayed recovery, follow up ; Head trauma, no neuro decline, follow up, COMPARISON: NONE FINDINGS: On today's examination there is a small hematoma level within both occipital horns of the left lateral ventricle. Persistent subdural hematoma in the lateral right frontal and temporal regions. On tod ay's examination note is made of an empty delta sign the torcula. This raises the question of a possible dural sinus thrombosis. Consider correlation with CTV. IMPRESSION: Interval development of intraventricular blood. There is also suggestive evidence of a dural venous thrombosis present. Follow-up with CTV is recommended. Felicity Rodriguez thanks you for the opportunity to care for your patient. Workstation ID: [id number] - [email or web address] Signature Line FINAL REPORT Dictated By: Terry Cunha MD 01/29/2018 05:45 Assigned Physician: Terry Cunha MD Vital Signs (Past 36 Hours) Last Charted Minimum Maximum Temperature 98.2 (02/02 08:06) 97.9 (02/01 04:00) 99.1 (02/01 00:25) Pulse 85 (02/02 08:06) 73 (02/01 12:00) 96 (02/01 13:00) Resp 16 (02/02 08:06) 11 (02/01 20:15) 23 (02/01 13:00) Pulse Ox 96 (02/02 08:06) 93 (02/01 22:28) 96 (02/02 08:06) Pain Score 9 (02/02 00:23) 0 (02/01 20:15) 9 (02/02 00:23) BP 148/76 (02/02 08:06) Minimum Maximum Systolic BP 124/64 (02/01 04:00) 167/85 (02/01 09:00) Diastolic BP 130/53 (02/01 00:00) 167/85 (02/01 09:00) I and O Summary Begin Date: 02/01/18 00:00 End Date: 02/01/18 23:59 Input: 738 Output: 0 Stools: 0 Other Output: 457 Total Output: 457 I and O Difference: 281 Labs - Last 36 hours (Max 2 / lab test) CHEMISTRY Sodium 133 (02/01 05:03) Potassium 3.4 (02/01 05:03) Chloride 97 (02/01 05:03) CO2 24 (02/01 05:03) Glucose 88 (02/01 05:03) Glucose POCT No result BUN 12 (02/01 05:03) Creatinine 1.03 (02/01 05:03) Calcium Total 8.7 (02/01 05:03) Magnesium 2.0 (02/02 05:28) 1.5 (02/01 05:03) HEMATOLOGY WBC 5.9 (02/02 05:28) 6.6 (02/01 05:03) RBC 4.23 (02/02 05:) 4.12 (02/01 05:03) Hb 13.5 (02/02 05:) 13.2 (02/01 05:03) Hematocrit 37.5 (02/02) 36.8 (02/01 05:03) Platelets 254 (02/02 05:) 240 (02/01 05:03) MCV 88.7 (02/02 05:28) 89.2 (02/01 05:03) MCH 31.9 (02/02 05:) 32.1 (02/01 05:03) RDW 12.6 (02/02 05:) 12.6 (02/01 05:03) MCHC 36.0 (02/02 05:) 35.9 (02/01 05:03) Neutrophil Ab No result Monocyte Ab No result Eosinophil Ab No result Basophil Ab No result Lymphocyte Ab No result OTHER LABS Anion Gap 12.0 mMol/L (02/01 05:03) 9.0 mMol/L (01/31 05:24) Est CrCl IBW (mL/min)-RX 74.69 mL/min (02/01 05:03) 72.58 mL/min (01/31 05:24) GFR Est. Non >60 mL/min (01/31 05:24) GFR Est. Anais >60 mL/min (01/31 05:24) MPV 6.9 FL (02/02 05:28) 7.0 FL (02/01 05:03) Health Status Allergies Allergic Reactions (All) NKA Medication List (Selected) Inpatient Medications Ordered Colace*: 100 mg, PO, BID Compazine Inj*: 10 mg, IV Push, Q4h, PRN: See Comments Dextrose 50% Syringe*: 12.5 Gm, IV Push, PRN, PRN: See Comments Glucagon: 1 mg, Subcut, PRN, PRN: See Comments HYDROmorphone Inj: 0.5 mg, IV Push, Q2h, PRN: Pain - Moderate HydrALAZINE Inj: 10 mg, IV Push, Q4h, PRN: Blood Pressure - See Parameters in Order Insulin MIX 75/25 Lispro Protamine-Lispro (HumaLOG 75/25): 15 Unit, Subcut, BID Milk of Magnesia 8%: 2,400 mg, PO, Bedtime, PRN: Constipation MiraLax: 17 Gm, PO, Daily Multivitamin Tab*: 1 Tab, PO, Daily Morrill 5 mg/325 mg*: 2 Tab, PO, Q4h, PRN: Pain - Moderate NovoLIN/HumuLIN-R Sliding Scale*: Aggressive Scale, Subcut, ac+bedtime Pharmacy Communication Order.: No anticoagulation, antiplatelets, NSAID, Comm, Communication Tylenol*: 650 mg, PO, Q4h, PRN: Pain-Mild/Fever greater than 100.4 (38C) Zofran Inj*: 4 mg, IV Push, Q6h, PRN: See Comments acetaminophen-HYDROcodone: 1 Tab, PO, Q4h, PRN: Pain - Moderate carvedilol: 12.5 mg, PO, Daily famotidine: 20 mg, 100 mL/hr, IVPB, BID hydroCHLOROthiazide: 12.5 mg, PO, Daily labetalol: 10 mg, 2 mL, 60 mL/hr, IV Push, Q4h, PRN: Blood Pressure - See Parameters in Order losartan: 100 mg, PO, Daily Prescriptions Prescribed acetaminophen-HYDROcodone 325 mg-5 mg oral tablet: 1 Tab, PO, Q4h, Narcotic pain medications can be addictive, wean yourself from them as tolerated., PRN: as needed for pain, 42 Each, 0 Refill(s) docusate sodium 100 mg oral tablet: 1 Tab, PO, BID, for 14 Day(s), with plenty of water, PRN: as needed for constipation, 28 Tab, 0 Refill(s) Documented Medications Documented HumaLOG 100 units/mL injectable solution: Subcut, ac TID, Each, 0 Refill(s) NovoLOG MIX 70/30: Subcut, Once, Each, 0 Refill(s) carvedilol 12.5 mg oral tablet: 1 Tab, PO, Daily, Each, 0 Refill(s) hydroCHLOROthiazide 12.5 mg oral tablet: 1 Tab, PO, Daily, Each, 0 Refill(s) losartan 100 mg oral tablet: 1 Tab, PO, Daily, Each, 0 Refill(s) Physical Examination Last Charted Vital Signs Temperature: 98.2 (02/02 08:06) Pulse: 85 (02/02 08:06) Respiration: 16 (02/02 08:06) BP: 148/76 (02/02 08:06) Pulse Ox: 96 (02/02 08:06) Oxygen Delivery: Room air (02/02 08:08) Pain Score: 9 (02/02 00:23) Note: This is a late entry: The patient was seen on rounds this morning at approximately 1000 and the time of note does not reflect the time the patient was seen. Pt seen and examined. House staff note above reviewed and confirmed. Plan as above. Jonnie Terrell MD ([phone]) GLUCOSE POCT Collected: 02/02/2018 Status: F Source: [facility] (UPLOADED) 8:13 AM [facility]ALTH SYSTEM REPOSITORY TYPE CODE TESTS RESULT OUT OF REFERENCE UNITS RANGE LAB 2340-8(LOIN 70-110 mg/dL C) High Glucose 248 POCT-LAB Result Comment: Treatment ranges and critical values established by Patient Care Services. All follow-up actions were taken by Patient Care Services. Performed By: #### 2430-8 #### [facility] CBC Collected: 02/02/2018 Status: F Source: [facility] 5:28 AM [facility] SYSTEM REPOSITORY TYPE CODE TESTS RESULT OUT OF REFERENCE UNITS RANGE LAB 59050-5(LO 6.2-12.1 FL INC) MPV Normal 6.9 LAB 22054-1(LO 142-424 thou/mcL INC) Normal Platelet Count 254 LAB 67145-3(LO 39.0-49.0 % INC) Low Hematocrit 37.5 LAB 87342-5(LO 11.0-14.8 % INC) RDW Normal 12.6 LAB 718-7(LOIN 13.5-17.5 gm/dL C) Normal Hemoglobin 13.5 LAB 02422-1(LO 32.0-36.0 gm/dL INC) MCHC Normal 36.0 LAB 95895-0(LO 4.30-5.70 million/mcL INC) Low Red Blood Cell 4.23 Count LAB 99144-1(LO 27.0-34.0 Picograms INC) MCH Normal 31.9 LAB 08958-1(LO 80.0-97.0 FL INC) MCV Normal 88.7 LAB 31139-8(LO 4.6-10.2 thou/mcL INC) WBC Normal Count 5.9 Performed By: #### 14058-1 #### [facility] [address], [place] MAGNESIUM LEVEL Collected: 02/02/2018 Status: F Source: [facility] 5:28 AM [facility] SYSTEM REPOSITORY TYPE CODE TESTS RESULT OUT OF RANGE REFERENCE UNITS LAB 35885-0(LO 1.8-2.5 mg/dL INC) Normal Magnesium Level 2.0 Performed By: #### 38382-2 #### [facility] [address], [place] GLUCOSE POCT Collected: 02/01/2018 Status: F Source: [facility] (UPLOADED) 8:54 PM [facility]ALTH SYSTEM REPOSITORY TYPE CODE TESTS RESULT OUT OF REFERENCE UNITS RANGE LAB 2340-8(LOIN 70-110 mg/dL C) High Glucose 176 POCT-LAB Result Comment: Treatment ranges and critical values established by Patient Care Services. All follow-up actions were taken by Patient Care Services. Performed By: #### 2430-8 #### [facility] GLUCOSE POCT Collected: 02/01/2018 Status: F Source: [facility] (UPLOADED) 4:08 PM [facility]ALTH SYSTEM REPOSITORY TYPE CODE TESTS RESULT OUT OF REFERENCE UNITS RANGE LAB 2340-8(LOIN 70-110 mg/dL C) High Glucose 146 POCT-LAB Result Comment: Treatment ranges and critical values established by Patient Care Services. All follow-up actions were taken by Patient Care Services. Performed By: #### 2430-8 #### [facility] XR ABDOMEN 1 VIEW Observed: 02/01/2018 Status: F Source: [facility] 11:38 AM [facility] SYSTEM REPOSITORY EXAMINATION TYPE: XR Abdomen 1 View DATE OF EXAM : 02/01/2018 11:38 AM HISTORY: Abdominal Distention, COMPARISON: Priors including 01/28/2015. FINDINGS: No disproportionally dilated loops of bowel. Moderate colonic stool noted. No pneumatosis or pneumoperitoneum on these limited supine views. Degenerative changes of the spine and pelvis. Scoliosis similar to prior. IMPRESSION: Nonobstructive bowel gas pattern. Felicity Rodriguez thanks you for the opportunity to care for your patient. Workstation ID: [id number] - [id number] FINAL REPORT Dictated By: Wendy Royal MD 02/01/2018 12:12 Assigned Physician: Wendy Royal MD Reviewed and Electronically Signed By: Wendy Royal MD 02/01/2018 12:13 Transcribed by: SHAYNE 02/01/2018 12:12 Technologist: RFA GLUCOSE POCT Collected: 02/01/2018 Status: F Source: [facility] (UPLOADED) 11:09 AM [facility]ALTH SYSTEM REPOSITORY TYPE CODE TESTS RESULT OUT OF REFERENCE UNITS RANGE LAB 2340-8(LOIN 70-110 mg/dL C) High Glucose 171 POCT-LAB Result Comment: Treatment ranges and critical values established by Patient Care Services. All follow-up actions were taken by Patient Care Services. Performed By: #### 2430-8 #### [facility] PROGRESS NOTES Observed: 02/01/2018 Status: C Source: [facility] 10:55 AM [facility]ALTH SYSTEM REPOSITORY Patient: ONEIDA QUISPE MRN: [id number] Age: 57 years Sex: Male : 1960 Associated Diagnoses: None Author: Simone Whalen MD TRAUMA PROGRESS NOTE Supervising Physician Comments [id number] Pt was seen, examined and discussed on rounds. FIndings reviwed. Still with nausea. Taking very little PO PE NAD neuro grossly non focal, still sl confused but MUCH more interactive clear bilat BS RRR abd soft, NT no aparent extremity trauma remainder of exam as below CHI - FU head CT now stable MS changes - clinically improving but will need cognitive eval, PT, OT Nausea - persists, treat PRM neck pain - MRI did not demonstrate any acute fx's sull fx - non op mgmt PCM - will place FT for enteral nutrition DM - monitor gluc HTN - controlled HLD Kenyon Natarajan ACUTE PROBLEMS and PLANS: S/P fall down stairs Closed head injury with SDH; TBI - right frontal SAH 5mm with 3mm shift to left Neurosurgery consult; assistance appreciated - non-op managment - repeat CT head this am shows stable bleed - MRV completed; unremarkable - serial neuro checks - HOB up 30 degrees - increase activity and diet as per NS recs -headache, nausea - improving - pain control; antiemetics - cog eval - speech swallow eval; ok for solids and thin liquids - ok for out of unit Skull fx; L squamous temporal bone fx - NS management - assistance appreciated - pain control - serial neuro checks Cervical spine pain - NS consult and mangement; assistance appreciated - CS CT stable; known CS stenosis with prior surgical intervention 3 years ago - residual unsteadiness in mobility - MRI CS 816 AM as per NS recs- notes severe narrowing C4- 5 with flattening of cord - serial neuro checks - pain control -flex/ex films 01/30 do not demonstrate CS instability Nausea and Vomiting - nausea persistent w/ abd distention and no BM - cont bowel reg - f/u KUB -Pepcid BID -po intake improving Mild dehydration - improved - BUN/Creat normalized - continue gentle IVF hydration at 75 cc/hr until adequate po intake - strict I and O - monitor Co-morbid conditions HTN - HTN managment with goal BP < 140 per NS recs - continue home meds DM - target glucose < 180 - POCT glucose monitoring - ASSI coverage prn Disposition - clinical course to determine -PM and R consult, ok for IPR when medically stable CO-MORBIDITIES: HTN, DM, HLD, Cervical spine stenosis (prior op), prior smoker (heavy) PREVENTIVE: GI: Pepcid/ FLD DVT: SCDs, mobilize - check surveilence Doppler LE Pain: Tylenol, Morrill, Dilaudid Pain Score: 2 - 10 out of 10 SYSTEMS BASED EXAMINATION: Neuro: AAOx2; (self and hospital); states May as month and 1999 something as year; speech clear +FC; Motor/sensory grossly intact HEENT: Vision normal, PERRL, EOMI, parietal headache CV: HRRR s murmur, NSR per bedside monitor; peripheral pulses 2+; no edema Pulm: BS=B, CTA with good aeration throughout Abd: Soft, non TTP; normoactive bowel sounds; (+) flatus, no BM : Stubbs in place; Urine clear/yellow FEN: MVIF/WNL/FLD ID/LINES: PIV UOP = 950/450/740 BM = 0 RADIOLOGY: REPORT EXAMINATION TYPE: CT Head w/o Contrast DATE OF EXAM ORDERED: 01/30/2018 5:14 AM HISTORY: Decision Support; Head trauma, mod-severe, GCS<13, initial exam, COMPARISON: NONE FINDINGS: Stable right-sided subdural hematoma. There is some decreased parenchymal density within the lateral aspect of the right temporal lobe. This is consistent with a temporal lobe contusion. A small amou nt of subarachnoid and/or parenchymal blood is seen surrounding the contusion. Blood is layering in the occipital horns of the lateral ventricles similar to the prior exam. No significant midline shift is seen. IMPRESSION: No significant interval change in the appearance of the brain. Felicity Rodriguez thanks you for the opportunity to care for your patient. Workstation ID: [id number] - [id number] Signature Line FINAL REPORT Dictated By: Terry Cunha MD 01/30/2018 05:35 Assigned Physician: Terry Cunha MD REPORT CERVICAL SPINE 2 VIEWS, FLEXION EXTENSION PROJECTIONS: CLINICAL STATEMENT: Trauma. Fall. COMPARISON: CT 01/28/2015 FINDINGS: Solid fusion with plate and screw fixation noted at C3-4. There is disc space narrowing at the C4-5 disc level with anterior displacement of C4 by approximately 4-5 mm. No significant instability note d between flexion and extension. There is marked disc space narrowing and marginal osteophytes at C5-6. No acute fracture or focal prevertebral soft tissue swelling identified. IMPRESSION: Severe degenerative change. C4-5 anterolisthesis. No significant instability. Felicity Rodriguez thanks you for the opportunity to care for your patient. Workstation ID: [id number] - PS360 Signature Line FINAL REPORT Dictated By: Jarocho Tripp MD 01/29/2018 15:58 Assigned Physician: Jarocho Tripp MD REPORT EXAMINATION TYPE: CT Head w/o Contrast DATE OF EXAM ORDERED: 01/29/2018 5:40 AM HISTORY: Decision Support; Head trauma, delayed recovery, follow up ; Head trauma, no neuro decline, follow up, COMPARISON: NONE FINDINGS: On today's examination there is a small hematoma level within both occipital horns of the left lateral ventricle. Persistent subdural hematoma in the lateral right frontal and temporal regions. On tod ay's examination note is made of an empty delta sign the torcula. This raises the question of a possible dural sinus thrombosis. Consider correlation with CTV. IMPRESSION: Interval development of intraventricular blood. There is also suggestive evidence of a dural venous thrombosis present. Follow-up with CTV is recommended. Felicity Rodriguez thanks you for the opportunity to care for your patient. Workstation ID: [id number] - PS360 Signature Line FINAL REPORT Dictated By: Terry Cunha MD 01/29/2018 05:45 Assigned Physician: Terry Cunha MD Vital Signs (Past 36 Hours) Last Charted Minimum Maximum Temperature 98.2 (02/01 08:00) 97.8 (01/31 19:55) 99.1 (02/01 00:25) Pulse 84 (02/01 10:00) 73 (02/01 06:00) 101 (01/31 20:00) Resp 13 (02/01 10:00) 12 (02/01 07:00) 23 (01/31 11:00) Pulse Ox 95 (02/01 10:00) 94 (02/01 06:00) 98 (01/31 14:07) Pain Score 4 (02/01 10:00) 0 (01/31 22:00) 9 (02/01 08:00) BP 164/79 (02/01 10:00) Minimum Maximum Systolic BP 124/64 (02/01 04:00) 174/79 (01/31 17:20) Diastolic BP 130/53 (02/01 00:00) 152/94 (01/31 09:16) I and O Summary Begin Date: 01/31/18 00:00 End Date: 01/31/18 23:59 Input: 1261 Output: 0 Stools: 0 Other Output: 1150 Total Output: 1150 I and O Difference: 111 Labs - Last 36 hours (Max 2 / lab test) CHEMISTRY Sodium 133 (02/01 05:03) 136 (01/31 05:24) Potassium 3.4 (02/01 05:03) 4.2 (01/31 05:24) Chloride 97 (02/01 05:03) 103 (01/31 05:24) CO2 24 (02/01 05:03) 24 (01/31 05:24) Glucose 88 (02/01 05:03) 167 (01/31 05:24) Glucose POCT No result BUN 12 (02/01 05:03) 14 (01/31 05:24) Creatinine 1.03 (02/01 05:03) 1.06 (01/31 05:24) Calcium Total 8.7 (02/01 05:03) 8.7 (01/31 05:24) Magnesium No result HEMATOLOGY WBC 6.6 (02/01 05:03) 8.7 (01/31 05:24) RBC 4.12 (02/01 05:03) 4.20 (01/31 05:24) Hb 13.2 (02/01 05:03) 13.5 (01/31 05:24) Hematocrit 36.8 (02/01 05:03) 37.9 (01/31 05:24) Platelets 240 (02/01 05:03) 228 (01/31 05:24) MCV 89.2 (02/01 05:03) 90.3 (01/31 05:24) MCH 32.1 (02/01 05:03) 32.1 (01/31 05:24) RDW 12.6 (02/01 05:03) 12.6 (01/31 05:24) MCHC 35.9 (02/01 05:) 35.6 (01/31 05:24) Neutrophil Ab No result Monocyte Ab No result Eosinophil Ab No result Basophil Ab No result Lymphocyte Ab No result OTHER LABS Anion Gap 12.0 mMol/L (02/01 05:03) 9.0 mMol/L (01/31 05:24) Est CrCl IBW (mL/min)-RX 74.69 mL/min (02/01 05:03) 72.58 mL/min (01/31 05:24) GFR Est. Non >60 mL/min (01/31 05:24) >60 mL/min (01/30 04:54) GFR Est. Anais >60 mL/min (01/31 05:24) >60 mL/min (01/30 04:54) MPV 7.0 FL (02/01 05:03) 7.5 FL (01/31 05:24) Draw and Hold NOTNEED (01/29 18:08) Health Status Allergies Allergic Reactions (All) NKA Medication List (Selected) Inpatient Medications Ordered Colace*: 100 mg, PO, BID Compazine Inj*: 10 mg, IV Push, Q4h, PRN: See Comments Dextrose 50% Syringe*: 12.5 Gm, IV Push, PRN, PRN: See Comments Glucagon: 1 mg, Subcut, PRN, PRN: See Comments HYDROmorphone Inj: 0.5 mg, IV Push, Q2h, PRN: Pain - Moderate HydrALAZINE Inj: 10 mg, IV Push, Q4h, PRN: Blood Pressure - See Parameters in Order Insulin MIX 75/25 Lispro Protamine-Lispro (HumaLOG 75/25): 15 Unit, Subcut, BID Milk of Magnesia 8%: 2,400 mg, PO, Bedtime, PRN: Constipation Multivitamin Tab*: 1 Tab, PO, Daily Morrill 5 mg/325 mg*: 2 Tab, PO, Q4h, PRN: Pain - Moderate NovoLIN/HumuLIN-R Sliding Scale*: Aggressive Scale, Subcut, ac+bedtime Pharmacy Communication Order.: No anticoagulation, antiplatelets, NSAID, Comm, Communication Tylenol*: 650 mg, PO, Q4h, PRN: Pain-Mild/Fever greater than 100.4 (38C) Zofran Inj*: 4 mg, IV Push, Q6h, PRN: See Comments acetaminophen-HYDROcodone: 1 Tab, PO, Q4h, PRN: Pain - Moderate carvedilol: 12.5 mg, PO, Daily famotidine: 20 mg, 100 mL/hr, IVPB, BID hydroCHLOROthiazide: 12.5 mg, PO, Daily labetalol: 10 mg, 2 mL, 60 mL/hr, IV Push, Q4h, PRN: Blood Pressure - See Parameters in Order losartan: 100 mg, PO, Daily Prescriptions Prescribed acetaminophen-HYDROcodone 325 mg-5 mg oral tablet: 1 Tab, PO, Q4h, Narcotic pain medications can be addictive, wean yourself from them as tolerated., PRN: as needed for pain, 42 Each, 0 Refill(s) docusate sodium 100 mg oral tablet: 1 Tab, PO, BID, for 14 Day(s), with plenty of water, PRN: as needed for constipation, 28 Tab, 0 Refill(s) Documented Medications Documented HumaLOG 100 units/mL injectable solution: Subcut, ac TID, Each, 0 Refill(s) NovoLOG MIX 70/30: Subcut, Once, Each, 0 Refill(s) carvedilol 12.5 mg oral tablet: 1 Tab, PO, Daily, Each, 0 Refill(s) hydroCHLOROthiazide 12.5 mg oral tablet: 1 Tab, PO, Daily, Each, 0 Refill(s) losartan 100 mg oral tablet: 1 Tab, PO, Daily, Each, 0 Refill(s) Physical Examination Last Charted Vital Signs Temperature: 98.2 (02/01 08:00) Pulse: 84 (02/01 10:00) Respiration: 13 (02/01 10:00) BP: 164/79 (02/01 10:00) Activity: Sleeping (02/01 10:00) Pulse Ox: 95 (02/01 10:00) Oxygen Delivery: Room air (02/01 10:00) Pain Score: 4 (02/01 10:00) PROGRESS NOTES Observed: 02/01/2018 Status: F Source: [facility] 10:00 AM [facility] SYSTEM REPOSITORY Patient: ONEIDA QUISPE Age: 57 years Sex: Male : 1960 Associated Diagnoses: None Author: Colette Can CNP Supervising Physician Comments Dr Flores Chief Complaint 1. Traumatic SDH 2. right temporal lobe tip contusion 3. cervical stenosis Health Status Allergies Allergic Reactions (Selected) NKA Medication List Medications reviewed. Subjective Reports headache and nausea; denies blurred vision, double vision or any new numbness or tingling. Reports good pain control with current pain medication regimen. Emesis this am after po intake; emesis last evening . Objective Last Charted Vital Signs Temperature: 98.2 (02/01 08:00) Pulse: 84 (02/01 10:00) Respiration: 13 (02/01 10:00) BP: 164/79 (02/01 10:00) Activity: Sleeping (02/01 10:00) Pulse Ox: 95 (02/01 10:00) Oxygen Delivery: Room air (02/01 10:00) Pain Score: 4 (02/01 10:00) General : Resting quietly in bed. Afebrile. Calm and cooperative.In no acute distress. Neurological: Sleeping, arouses to voice; oriented x 2; not month and year. Face symmetrical, tongue midline. Speech clear, fluent and appropriate. PERRLA 3 mm and briskly reactive bilaterally. EOM in tact. No double vision or blurred vision noted. shoulder shrug 5/5. Bilateral upper extremities: deltoid flexion/extension 5/5; bicep flexion/extension 5 /5; finger adduction 4/5; finger abduction 4 /5. No arm drift noted. Light touch sensation intact. Bilateral lower extremities: Hip flexion 5 /5; knee flexion/extension 5/5; plantar flexion 5/5; dorsiflexion 5/5. No leg drift noted. Light touch sensation intact. Deep tendon reflexes: Nance's neg. Patellar: 3+ Clonus neg. Cardiovascular: S1S2. Regular, rate and rhythm. No rubs, gallops or murmurs noted.No edema noted Pulmonary: Lungs clear to auscultation. Respirations full, regular and easy. No cough noted. Peripheral vascular: Bilateral upper and lower extremity pulses palpable. No edema noted. No tenderness or warmth noted in bilateral lower extremities upon palpation. SCD's in place to bilateral lower extremities. GI: Abdomen soft, mild tenderness and mildly distended. - bm. : voids per urinal Skin: warm, dry and intact. No rashes or lesions noted. Results Review General Results Reviewed Results: Lab Results : LAB(Date Range: 01/31/2018 00:00 EDT - 02/01/2018 11:36 EDT) Diagnosis Documentation 1. traumatic SDH 2. Traumatic temporal lobe tip contusion 3. cervical stenosis Assessment Assessment and plan: 1. Traumatic SDH, temporal lobe tip contusion: a. presumed fall down stairs at home: found on the toilet confused and disoriented, broken glass and blood found at bottom of steps b. noted on CT brain with left Nondiplaced squamous temporal bone fracture: not clinically significant brain compression: continue observation. CT brain this am stable. 01/29 MRV completed for questionable dural venous thrombosis- negative MRV 01/29 CT C-T-L spine with no acute fractures: significant stenosis noted C4-5 C5-6; will follow up as outpatient once recovered from TBI 01/29 MRI C-spine without ligamentous injury 01/29 Flex/Ex xrays without instability: c-collar DC'd 01/29 01/[address] showed increased right temporal contusion: stable SDH 01/31 CT brain with stable right temporal tip contusion, stable SDH c. Neurologically sleeping, but easily arouses and follows commands; remains confused and does not recall fall. 5/5 strength throughout upper and lower extremities d. Afebrile; WBC 8.7; H/H 13.5/37.5; Na 136. blood cultures neg to date e. Q 2 neurological checks f. Q2 vital signs; goal SBP less than 150; maintaining without intervention g. PT/OT/ST: eval and treat. Recs are for acute rehab; ok to be OOB with assistance h. tolerating diet; poor po intake today 2/2 nausea; could consult nutritionfor calorie counts if not improved i. VTE prophylaxis: SCD's to bilateral lower extremities; no anticoagulants, antiplatelets, NSAIDs or supplements that may increase the risk of bleeding j. no dextrose containing solutions k. DM goal glucose less than 180; defer management to trauma service l. bowel regimen: miralax, colace; discussed with Trauma; KUB ordered. 2. Disposition: a. 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 Flores in rounds GLUCOSE POCT Collected: 02/01/2018 Status: F Source: [facility] (UPLOADED) 6:20 AM [facility]ALTH SYSTEM REPOSITORY TYPE CODE TESTS RESULT OUT OF RANGE REFERENCE UNITS LAB 2340-8(LOIN 70-110 mg/dL C) Normal Glucose 106 POCT-LAB Result Comment: Treatment ranges and critical values established by Patient Care Services. All follow-up actions were taken by Patient Care Services. Performed By: #### 2430-8 #### [facility]INT [facility] C[facility] CBC Collected: 02/01/2018 Status: F Source: [facility] 5:03 AM [facility] REPOSITORY TYPE CODE TESTS RESULT OUT OF REFERENCE UNITS RANGE LAB 16720-2(LO 39.0-49.0 % INC) Low Hematocrit 36.8 LAB 13789-0(LO 4.30-5.70 million/mcL INC) Low Red Blood Cell 4.12 Count LAB 04420-6(LO 142-424 thou/mcL INC) Normal Platelet Count 240 LAB 77551-4(LO 32.0-36.0 gm/dL INC) MCHC Normal 35.9 LAB 77610-8(LO 80.0-97.0 FL INC) MCV Normal 89.2 LAB 31958-7(LO 4.6-10.2 thou/mcL INC) WBC Normal Count 6.6 LAB 35207-7(LO 11.0-14.8 % INC) RDW Normal 12.6 LAB 718-7(LOIN 13.5-17.5 gm/dL C) Low Hemoglobin 13.2 LAB 95328-7(LO 6.2-12.1 FL INC) MPV Normal 7.0 LAB 54485-2(LO 27.0-34.0 Picograms INC) MCH Normal 32.1 Performed By: #### 86399-5 #### [facility] [address], [place] BASIC METABOLIC PANEL Collected: 02/01/2018 Status: F Source: [facility] 5:03 AM [facility] REPOSITORY TYPE CODE TESTS RESULT OUT OF RANGE REFERENCE UNITS LAB 2160-0(ABRAHAM 0.60-1.30 mg/dL NC) Normal Creatinine 1.03 LAB 2951-2(ABRAHAM 136-145 mMol/L NC) Low Sodium Level 133 LAB 24436-6(LO 70-110 mg/dL INC) Glucose Normal Level 88 LAB 2823-3(ABRAHAM 3.6-5.1 mMol/L NC) Low Potassium Level 3.4 LAB 78774-7(LO 8-20 mg/dL INC) BUN Normal 12 LAB 23184-5(LO 8.9-10.3 mg/dL INC) Low Calcium Total 8.7 LAB 57681-1(LO 6.0-18.0 mMol/L INC) Anion Normal Gap 12.0 Result Comment: PLEASE NOTE:The calculated Anion Gap(AGAP) does not include Potassium. LAB 8-9(LOINC) 22-32 mMol/L Normal Carbon Dioxide Level 24 LAB 5-0(LOINC) 98-107 mMol/L Low Chloride Level 97 Performed By: #### [id number] #### [facility] [address], [place] MAGNESIUM LEVEL Collected: 02/01/2018 Status: F Source: [facility] 5:03 AM [facility] SYSTEM REPOSITORY TYPE CODE TESTS RESULT OUT OF REFERENCE UNITS RANGE LAB 11379-5(LO 1.8-2.5 mg/dL INC) Low Magnesium Level 1.5 Performed By: #### 45480-6 #### [facility] [place], [place] GLUCOSE POCT Collected: 01/31/2018 Status: F Source: [facility] (UPLOADED) 8:35 PM HEALTH SYSTEM REPOSITORY TYPE CODE TESTS RESULT OUT OF REFERENCE UNITS RANGE LAB 2340-8(LOIN 70-110 mg/dL C) High Glucose 155 POCT-LAB Result Comment: Treatment ranges and critical values established by Patient Care Services. All follow-up actions were taken by Patient Care Services. Performed By: #### 2430-8 #### [facility] GLUCOSE POCT Collected: 01/31/2018 Status: F Source: [facility] (UPLOADED) 5:21 PM HEALTH SYSTEM REPOSITORY TYPE CODE TESTS RESULT OUT OF REFERENCE UNITS RANGE LAB 2340-8(LOIN 70-110 mg/dL C) High Glucose 124 POCT-LAB Result Comment: Treatment ranges and critical values established by Patient Care Services. All follow-up actions were taken by Patient Care Services. Performed By: #### 2430-8 #### [facility] CARE GLUCOSE POCT Collected: 01/31/2018 Status: F Source: [facility] (UPLOADED) 11:40 AM HEALTH SYSTEM REPOSITORY TYPE CODE TESTS RESULT OUT OF REFERENCE UNITS RANGE LAB 2340-8(LOIN 70-110 mg/dL C) High Glucose 183 POCT-LAB Result Comment: Treatment ranges and critical values established by Patient Care Services. All follow-up actions were taken by Patient Care Services. Performed By: #### 2430-8 #### [facility] POINT OF CARE PROGRESS NOTES Observed: 01/31/2018 Status: C Source: [facility] 9:28 AM HEALTH SYSTEM REPOSITORY Patient: ONEIDA QUISPE MRN: [facility])-[id number] Age: 57 years Sex: Male : 1960 Associated Diagnoses: None Author: Koby BRADY, Simone TRAUMA PROGRESS NOTE Supervising Physician Comments 0750 Pt was seen, examined and discussed on rounds. FIndings reviwed. NV resolved. Not taking in much PE NAD neuro grossly non focal, still sl confused but MUCH more interactive clear bilat BS RRR abd soft, NT no aparent extremity trauma remainder of exam as below CHI - FU head CT now stable MS changes - clinically improving but will need cognitive eval, PT, OT NV - resolved neck pain - MRI did not demonstrate any acute fx's sull fx - non op mgmt DM - monitor gluc HTN - controlled HLD Kenyon Delgado ACUTE PROBLEMS and PLANS: S/P fall down stairs Closed head injury with SDH; TBI - right frontal SAH 5mm with 3mm shift to left Neurosurgery consult; assistance appreciated - non-op managment - repeat CT head this am shows stable bleed - MRV completed; unremarkable - serial neuro checks - HOB up 30 degrees - increase activity and diet as per NS recs -headache, nausea - improving - pain control; antiemetics - cog eval - speech swallow eval; currently FLD with nectar thickened liquids - ok for out of unit Skull fx; L squamous temporal bone fx - NS management - assistance appreciated - pain control - serial neuro checks Cervical spine pain - NS consult and mangement; assistance appreciated - CS CT stable; known CS stenosis with prior surgical intervention 3 years ago - residual unsteadiness in mobility - MRI CS 01/29 AM as per NS recs- notes severe narrowing C4- 5 with flattening of cord - serial neuro checks - pain control -flex/ex films 01/30 do not demonstrate CS instability Nausea and Vomiting - nausea improved -H and H stable -Pepcid BID -po intake improving Mild dehydration - improved - BUN/Creat normalized - continue gentle IVF hydration at 75 cc/hr until adequate po intake - strict I and O - monitor Co-morbid conditions HTN - HTN managment with goal BP < 140 per NS recs - continue home meds DM - target glucose < 180 - POCT glucose monitoring - ASSI coverage prn Disposition - clinical course to determine -PM and R consult, ok for IPR when medically stable CO-MORBIDITIES: HTN, DM, HLD, Cervical spine stenosis (prior op), prior smoker (heavy) PREVENTIVE: GI: Pepcid/ FLD DVT: SCDs, mobilize - check surveilence Doppler LE Pain: Tylenol, Morrill, Dilaudid Pain Score: 2 - 10 out of 10 SYSTEMS BASED EXAMINATION: Neuro: AAOx2; (self and hospital); states May as month and 1999 something as year; speech clear +FC; Motor/sensory grossly intact HEENT: Vision normal, PERRL, EOMI, parietal headache CV: HRRR s murmur, NSR per bedside monitor; peripheral pulses 2+; no edema Pulm: BS=B, CTA with good aeration throughout Abd: Soft, non TTP; normoactive bowel sounds; (+) flatus, no BM : Stubbs in place; Urine clear/yellow FEN: MVIF/WNL/FLD ID/LINES: PIV UOP = 950/450/740 BM = 0 RADIOLOGY: REPORT EXAMINATION TYPE: CT Head w/o Contrast DATE OF EXAM ORDERED: 01/30/2018 5:14 AM HISTORY: Decision Support; Head trauma, mod-severe, GCS<13, initial exam, COMPARISON: NONE FINDINGS: Stable right-sided subdural hematoma. There is some decreased parenchymal density within the lateral aspect of the right temporal lobe. This is consistent with a temporal lobe contusion. A small amou nt of subarachnoid and/or parenchymal blood is seen surrounding the contusion. Blood is layering in the occipital horns of the lateral ventricles similar to the prior exam. No significant midline shift is seen. IMPRESSION: No significant interval change in the appearance of the brain. Felicity Rodriguez thanks you for the opportunity to care for your patient. Workstation ID: [id number] - [id number] Signature Line FINAL REPORT Dictated By: Terry Cunha MD 01/30/2018 05:35 Assigned Physician: Terry Cunha MD REPORT CERVICAL SPINE 2 VIEWS, FLEXION EXTENSION PROJECTIONS: CLINICAL STATEMENT: Trauma. Fall. COMPARISON: CT 01/28/2015 FINDINGS: Solid fusion with plate and screw fixation noted at C3-4. There is disc space narrowing at the C4-5 disc level with anterior displacement of C4 by approximately 4-5 mm. No significant instability note d between flexion and extension. There is marked disc space narrowing and marginal osteophytes at C5-6. No acute fracture or focal prevertebral soft tissue swelling identified. IMPRESSION: Severe degenerative change. C4-5 anterolisthesis. No significant instability. Felicity Rodriguez thanks you for the opportunity to care for your patient. Workstation ID: [id number] - [id number] Signature Line FINAL REPORT Dictated By: Jarocho Tripp MD 01/29/2018 15:58 Assigned Physician: Jarohco Tripp MD REPORT EXAMINATION TYPE: CT Head w/o Contrast DATE OF EXAM ORDERED: 01/29/2018 5:40 AM HISTORY: Decision Support; Head trauma, delayed recovery, follow up ; Head trauma, no neuro decline, follow up, COMPARISON: NONE FINDINGS: On today's examination there is a small hematoma level within both occipital horns of the left lateral ventricle. Persistent subdural hematoma in the lateral right frontal and temporal regions. On tod ay's examination note is made of an empty delta sign the torcula. This raises the question of a possible dural sinus thrombosis. Consider correlation with CTV. IMPRESSION: Interval development of intraventricular blood. There is also suggestive evidence of a dural venous thrombosis present. Follow-up with CTV is recommended. Felicity Rodriguez thanks you for the opportunity to care for your patient. Workstation ID: [id number] - [id number] Signature Line FINAL REPORT Dictated By: Terry Cunha MD 01/29/2018 05:45 Assigned Physician: Terry Cunha MD Vital Signs (Past 36 Hours) Last Charted Minimum Maximum Temperature 98.4 (01/31 08:00) 97 (01/30 00:00) 99.5 (01/30 12:00) Pulse 93 (01/31 09:16) 83 (01/31 08:00) 105 (01/30 11:00) Resp 19 (01/31 09:16) 10 (01/30 20:27) 27 (01/30 06:43) Pulse Ox 94 (01/31 09:00) 92 (01/30 02:28) 95 (01/31 08:00) Pain Score 0 (01/31 07:45) 0 (01/31 07:45) 10 (01/30 14:00) BP 152/94 (01/31 09:16) Minimum Maximum Systolic BP 119/57 (01/30 14:00) 167/79 (01/31 07:38) Diastolic BP 119/57 (01/30 14:00) 152/94 (01/31 09:16) I and O Summary Begin Date: 01/30/18 00:00 End Date: 01/30/18 23:59 Input: 2084 Output: 0 Stools: 0 Other Output: 3090 Total Output: 3090 I and O Difference: -1005 Labs - Last 36 hours (Max 2 / lab test) CHEMISTRY Sodium 136 (01/31 05:24) 136 (01/30 04:54) Potassium 4.2 (01/31 05:24) 4.2 (01/30 04:54) Chloride 103 (01/31 05:24) 106 (01/30 04:54) CO2 24 (01/31 05:24) 20 (01/30 04:54) Glucose 167 (01/31 05:24) 244 (01/30 04:54) Glucose POCT No result BUN 14 (01/31 05:24) 23 (01/30 04:54) Creatinine 1.06 (01/31 05:24) 1.19 (01/31 04:54) Calcium Total 8.7 (01/31 05:24) 8.3 (01/31 04:54) Magnesium No result HEMATOLOGY WBC 8.7 (01/31 05:24) 7.1 (01/30 04:54) RBC 4.20 (01/31 05:24) 3.90 (01/30 04:54) Hb 13.5 (01/31 05:24) 12.4 (01/30 04:54) Hematocrit 37.9 (01/31 05:24) 35.5 (01/30 04:54) Platelets 228 (01/31 05:24) 229 (01/30 04:54) MCV 90.3 (01/31 05:24) 91.1 (01/30 04:54) MCH 32.1 (01/31 05:24) 31.9 (01/30 04:54) RDW 12.6 (01/31 05:24) 13.1 (01/30 04:54) MCHC 35.6 (01/31 05:24) 35.0 (01/30 04:54) Neutrophil Ab No result Monocyte Ab No result Eosinophil Ab No result Basophil Ab No result Lymphocyte Ab No result COAGULATION Partial Thromboplastin (aPTT) 24.5 Sec (01/28 21:38) INR 1.08 (01/28 21:38) Prothrombintime (PT) 12.3 Sec (01/28 21:38) OTHER LABS Anion Gap 9.0 mMol/L (01/31 05:24) 10.0 mMol/L (01/30 04:54) Est CrCl IBW (mL/min)-RX 72.58 mL/min (01/31 05:24) 64.65 mL/min (01/30 04:54) GFR Est. Non >60 mL/min (01/31 05:24) >60 mL/min (01/30 04:54) GFR Est. Anais >60 mL/min (01/31 05:24) >60 mL/min (01/30 04:54) Creatine Kinase Random 116 Units/L (01/28 18:32) Alcohol (Ethanol) Level <0.01 gm/dL (01/28 18:32) Amphetamine Scr Urine NEGATIVE (01/29 02:19) Barbiturates Scr Urine NEGATIVE (01/29 02:) Benzodiazepine Scr Urine NEGATIVE (01/29 02:) Cocaine Scr Urine NEGATIVE (01/29 02:) Methadone Scr Urine NEGATIVE (01/29 02:) Opiate Scr Urine POSITIVE (08/16 02:19) Oxycodone Scr Urine NEGATIVE (01/29 02:19) Tetrahydrocannabinoid Scr NEGATIVE (01/29 02:19) MPV 7.5 FL (01/31 05:24) 7.3 FL (01/30 04:54) Platelet Function Analysi 96 Sec (01/28 21:38) Occult Blood Feces POSITIVE (01/29 09:38) Blood Type ABO and Rh(D) ANEG (01/28 18:32) Antibody Screen Interpret NEGATIVE (01/28 18:32) Draw and Hold NOTNEED (01/29 18:08) Health Status Allergies No allergies have been recorded. Medication List (Selected) Inpatient Medications Ordered Colace*: 100 mg, PO, BID Compazine Inj*: 10 mg, IV Push, Q4h, PRN: See Comments Dextrose 50% Syringe*: 12.5 Gm, IV Push, PRN, PRN: See Comments Glucagon: 1 mg, Subcut, PRN, PRN: See Comments HYDROmorphone Inj: 0.5 mg, IV Push, Q2h, PRN: Pain - Moderate HydrALAZINE Inj: 10 mg, IV Push, Q4h, PRN: Blood Pressure - See Parameters in Order Insulin MIX 75/25 Lispro Protamine-Lispro (HumaLOG 75/25): 15 Unit, Subcut, BID Milk of Magnesia 8%: 2,400 mg, PO, Bedtime, PRN: Constipation Multivitamin Tab*: 1 Tab, PO, Daily NiCARdipine Additive* 20 mg [2.5 mg/hr] + Sodium Chloride 0.9% 200 mL: 25 mL/hr, IV, Stop: 02/27/18 18:49:00 EDT Morrill 5 mg/325 mg*: 2 Tab, PO, Q4h, PRN: Pain - Moderate Normal Saline 1,000 mL: 75 mL/hr, IV, Stop: 02/28/18 8:59:00 EDT NovoLIN/HumuLIN-R Sliding Scale*: Aggressive Scale, Subcut, ac+bedtime Pharmacy Communication Order.: No anticoagulation, antiplatelets, NSAID, Comm, Communication Tylenol*: 650 mg, PO, Q4h, PRN: Pain-Mild/Fever greater than 100.4 (38C) Zofran Inj*: 4 mg, IV Push, Q6h, PRN: See Comments acetaminophen-HYDROcodone: 1 Tab, PO, Q4h, PRN: Pain - Moderate carvedilol: 12.5 mg, PO, Daily famotidine: 20 mg, 100 mL/hr, IVPB, BID hydroCHLOROthiazide: 12.5 mg, PO, Daily labetalol: 10 mg, 2 mL, 60 mL/hr, IV Push, Q4h, PRN: Blood Pressure - See Parameters in Order losartan: 100 mg, PO, Daily Prescriptions Prescribed acetaminophen-HYDROcodone 325 mg-5 mg oral tablet: 1 Tab, PO, Q4h, Narcotic pain medications can be addictive, wean yourself from them as tolerated., PRN: as needed for pain, 42 Each, 0 Refill(s) docusate sodium 100 mg oral tablet: 1 Tab, PO, BID, for 14 Day(s), with plenty of water, PRN: as needed for constipation, 28 Tab, 0 Refill(s) Documented Medications Documented HumaLOG 100 units/mL injectable solution: Subcut, ac TID, Each, 0 Refill(s) NovoLOG MIX 70/30: Subcut, Once, Each, 0 Refill(s) carvedilol 12.5 mg oral tablet: 1 Tab, PO, Daily, Each, 0 Refill(s) hydroCHLOROthiazide 12.5 mg oral tablet: 1 Tab, PO, Daily, Each, 0 Refill(s) losartan 100 mg oral tablet: 1 Tab, PO, Daily, Each, 0 Refill(s) Physical Examination Last Charted Vital Signs Temperature: 98.4 (01/31 08:00) Pulse: 93 (01/31 09:16) Respiration: 19 (01/31 09:16) BP: 152/94 (01/31 09:16) Pulse Ox: 94 (01/31 09:00) Oxygen Delivery: Room air (01/31 09:00) Pain Score: 0 (01/31 07:45) PROGRESS NOTES Observed: 01/31/2018 Status: F Source: [facility] 8:30 AM [facility]ALTH SYSTEM REPOSITORY Patient: ONEIDA QUISPE MRN: ([id number] Age: 57 years Sex: Male : 1960 Associated Diagnoses: None Author: Colette Can CNP Supervising Physician Comments Documentation By: Nurse Practitioner. Dr. Flores Chief Complaint 1. Traumatic SDH 2. right temporal lobe tip contusion 3. cervical stenosis Health Status Allergies Allergic Reactions (Selected) NKA Medication List Medications reviewed. Subjective Denies chest pain, shortness of breath, headache, nausea, vomiting, blurred vision, double vision or any new numbness or tingling. Reports good pain control with current pain medication regimen. Tolera ting regular diet; + flatus; -BM. Reports dangling on edge of bed Objective General : Resting quietly in bed. Afebrile. Calm and cooperative.In no acute distress. Neurological: Alert and oriented to person , place; not month and year. Face symmetrical, tongue midline. Speech clear, fluent and appropriate. PERRLA 3 mm and briskly reactive bilaterally. EOM intac t. No double vision or blurred vision noted. shoulder shrug 5/5. Bilateral upper extremities: deltoid flexion/extension 5/5; bicep flexion/extension 5 /5; finger adduction 4/5; finger abduction 4 /5. No arm drift noted. Light touch sensation intact. Bilateral lower extremities: Hip flexion 5 /5; knee flexion/extension 5/5; plantar flexion 5/5; dorsiflexion 5/5. No leg drift noted. Light touch sensation intact. Deep tendon reflexes: Nance's neg. Patellar: 3+ Clonus neg. Cardiovascular: S1S2. Regular, rate and rhythm. No rubs, gallops or murmurs noted.No edema noted Pulmonary: Lungs clear to auscultation. Respirations full, regular and easy. No cough noted. Peripheral vascular: Bilateral upper and lower extremity pulses palpable. No edema noted. No tenderness or warmth noted in bilateral lower extremities upon palpation. SCD's in place to bilateral lower extremities. GI: Abdomen soft, non-tender and non-distended. Active bowel sounds noted. : voids per urinal Skin: warm, dry and intact. No rashes or lesions noted. Last Charted Vital Signs Temperature: 98 (01/31 17:20) Pulse: 84 (01/31 17:20) Respiration: 16 (01/31 17:20) BP: 147/82 (01/31 15:09) Pulse Ox: 95 (01/31 17:20) Oxygen Delivery: Room air (01/31 13:51) Pain Score: 0 (01/31 13:51) Results Review General Results Reviewed Results: Lab Results : LAB(Date Range: 01/30/2018 00:00 EDT - 01/31/2018 17:54 EDT) Diagnosis Documentation 1. traumatic SDH 2. Traumatic temporal lobe tip contusion 3. cervical stenosis Assessment Assessment and plan: 1. Traumatic SDH, temporal lobe tip contusion: a. presumed fall down stairs at home: found on the toilet confused and disoriented, broken glass and blood found at bottom of steps b. noted on CT brain with left Nondiplaced squamous temporal bone fracture: not clinically significant brain compression: continue observation. CT brain this am stable. 01/29 MRV completed for questionable dural venous thrombosis- negative MRV 01/29 CT C-T-L spine with no acute fractures: significant stenosis noted C4-5 C5-6; will follow up as outpatient once recovered from TBI 01/29 MRI C-spine without ligamentous injury 01/29 Flex/Ex xrays without instability: c-collar DC'd 01/29 01/[address] showed increased right temporal contusion: stable SDH 01/31 CT brain with stable right temporal tip contusion, stable SDH c. Neurologically he continues to improve; more alert; remains confused and does not recall fall. 5/5 strength throughout upper and lower extremities d. Afebrile; WBC 8.7; H/H 13.5/37.5; Na 136. blood cultures neg to date e. Q 2 neurological checks f. Q2 vital signs; goal SBP less than 150; maintaining without intervention g. PT/OT/ST: eval and treat. Recs are for acute rehab; ok to be OOB with assistance; h. tolerating diet i. VTE prophylaxis: SCD's to bilateral lower extremities; no anticoagulants, antiplatelets, NSAIDs or supplements that may increase the risk of bleeding j. no dextrose containing solutions k. DM goal glucose less than 180; defer management to trauma service l. bowel regimen: add miralax 2. Disposition: a. pending clinical course; okay to transfer to PCU bed w tele Colette Can [facility] Neurosurgery CHUCKING MACHINE OPERATOR [phone] Flores in rounds GLUCOSE POCT Collected: 01/31/2018 Status: F Source: [facility] GIBSONMEL (UPLOADED) 6:24 AM HEALTH SYSTEM REPOSITORY TYPE CODE TESTS RESULT OUT OF REFERENCE UNITS RANGE LAB 2340-8(LOIN 70-110 mg/dL C) High Glucose 186 POCT-LAB Result Comment: Treatment ranges and critical values established by Patient Care Services. All follow-up actions were taken by Patient Care Services. Performed By: #### 2430-8 #### [facility] POINT OF CARE CBC Collected: 01/31/2018 Status: F Source: [place] 5:24 AM [facility]ALTH SYSTEM REPOSITORY TYPE CODE TESTS RESULT OUT OF REFERENCE UNITS RANGE LAB 88244-1(LO 6.2-12.1 FL INC) MPV Normal 7.5 LAB 68628-6(LO 80.0-97.0 FL INC) MCV Normal 90.3 LAB 28168-9(LO 142-424 thou/mcL INC) Normal Platelet Count 228 LAB 84587-0(LO 39.0-49.0 % INC) Low Hematocrit 37.9 LAB 718-7(LOIN 13.5-17.5 gm/dL C) Normal Hemoglobin 13.5 LAB 95745-6(LO 11.0-14.8 % INC) RDW Normal 12.6 LAB 42861-3(LO 32.0-36.0 gm/dL INC) MCHC Normal 35.6 LAB 50222-5(LO 4.30-5.70 million/mcL INC) Low Red Blood Cell 4.20 Count LAB 99457-2(LO 27.0-34.0 Picograms INC) MCH Normal 32.1 LAB 00587-1(LO 4.6-10.2 thou/mcL INC) WBC Normal Count 8.7 Performed By: #### 17778-9 #### [facility] [address] [place], [place] GFRAA Collected: 01/31/2018 Status: F Source: [place] 5:24 AM [facility]ALTH SYSTEM REPOSITORY TYPE CODE TESTS RESULT OUT OF RANGE REFERENCE UNITS LAB 44500-6(LO mL/min INC) GFR Normal Estimated >60 Result Comment: The MDRD equation has not been validated for those over 70 years, women, patients with serious co-morbid conditions, or with extremes of body size, muscle mass of nutritional status. Performed By: #### 88999-5, 93449-0m3, 54771-5 #### [facility] [address], [place] GFRBB Collected: 01/31/2018 Status: F Source: [place] 5:24 AM [facility] SYSTEM REPOSITORY TYPE CODE TESTS RESULT OUT OF RANGE REFERENCE UNITS LAB 26851-5(LO mL/min INC) GFR Normal Estimated Non >60 Performed By: #### 30566-8, 67315-4l2, 59670-1 #### [facility] [address], [place] BASIC METABOLIC PANEL Collected: 01/31/2018 Status: F Source: [place] 5:24 AM [facility]ALTH SYSTEM REPOSITORY TYPE CODE TESTS RESULT OUT OF RANGE REFERENCE UNITS LAB 80800-5(LO 8-20 mg/dL INC) BUN Normal 14 LAB 2028-9(ABRAHAM 22-32 mMol/L NC) Carbon Normal Dioxide Level 24 LAB 2160-0(ABRAHAM 0.60-1.30 mg/dL NC) Normal Creatinine 1.06 LAB 49054-9(LO 6.0-18.0 mMol/L INC) Anion Normal Gap 9.0 Result Comment: PLEASE NOTE:The calculated Anion Gap(AGAP) does not include Potassium. LAB 85019-6(LOINC) 70-110 mg/dL High Glucose Level 167 LAB 2951-2(LOINC) 136-145 mMol/L Normal Sodium Level 136 LAB 2075-0(LOINC) 98-107 mMol/L Normal Chloride Level 103 LAB 18434-5(LOINC) 8.9-10.3 mg/dL Low Calcium Total 8.7 LAB 2823-3(LOINC) 3.6-5.1 mMol/L Normal Potassium Level 4.2 Performed By: #### 89040-3, 57383-3h2, 96148-8 #### [facility] [address] [place], [place] CT HEAD W/O CONTRAST Observed: 01/31/2018 Status: F Source: [place] 3:20 AM HEALTH SYSTEM REPOSITORY Exam: CT Head w/o Contrast Date: 01/31/2018 3:20 AM Comparison: 01/30/2018 Indication:Head trauma, follow-up exam. Technique: Multiple axial images were obtained from the base of skull to the vertex. Findings: Similar small right frontoparietal and parafalcine subdural hematomas. Unchanged right temporal contusion with associated blood products. Similar subdural blood products along the falx. Sim ilar layering blood products within the occipital horns. Unchanged ventricular size. There is no evidence of mass effect or midline shift. Persistent complete opacification of the left and near complet e opacification of the right sphenoid sinuses with moderate mucosal thickening of the ethmoid air cells and No mastoid effusion. IMPRESSION: Unchanged multifocal intracranial hemorrhages and right temporal contusion. Findings communicated at time dictation utilizing departmental communication protocol. Jenners thanks you for the opportunity to care for your patient. Workstation ID: [id number] - [id number] FINAL REPORT Dictated By: Joo Steele MD 01/31/2018 03:28 Assigned Physician: Joo Steele MD Reviewed and Electronically Signed By: Joo Steele MD 01/31/2018 03:32 Transcribed by: SHAYNE 01/31/2018 03:28 Technologist: MINNIE GIBBONS GLUCOSE POCT Collected: 01/30/2018 Status: F Source: [facility] (UPLOADED) 9:19 PM HEALTH SYSTEM REPOSITORY TYPE CODE TESTS RESULT OUT OF REFERENCE UNITS RANGE LAB 2340-8(LOIN 70-110 mg/dL C) High Glucose 130 POCT-LAB Result Comment: Treatment ranges and critical values established by Patient Care Services. All follow-up actions were taken by Patient Care Services. Performed By: #### 2430-8 #### [facility] POINT OF CARE CONSULTATION Observed: 01/30/2018 Status: F Source: [place] 5:18 PM HEALTH SYSTEM REPOSITORY Patient: ONEIDA QUISPE MRN: [id number] Age: 57 years Sex: Male : 1960 Associated Diagnoses: None Author: Roxanna Maki DO Supervising Physician Comments Documentation By: Consulting Physician. Chief Complaint: TBI Admission Information Requesting Source The Requesting source is: History of Present Illness This is a 57 yo male with past medical history of Hypertension, hyperlipidema, diabetes, cervical stenosis who was admitted to [facility] on 01/28/2018 as a trauma. Patient was found by h is on the toilet with altered mental status. Apparently there was signs that he may have fallen down the stairs as there was blood and broken glass at the bottom of the staircase. Per reports he wa s tell her he felt sick but could not tell her what happened. He complained of neck and back pain. Injuries including TBI with traumatic right SDH with left non displaced squamous temporal bone fractu re. Non operative management. MRV was negative for dural venous thrombosis. CT of the spine with no acute fractures but significant stenosis at C4-5 and C5-6. MRI of his C spine was negative. Transfers: CGA/min A Dysphagia: on nectar thick liquids. Past Medical History No active or resolved problems charted Hypertension Hyperlipidemia Diabetes cervical stenosis Surgical History Surgical/Procedure Hx No active procedure history items have been selected or recorded. Functional History: Previously patient was independent with mobility and ADLs. He did have impaired balance from prior neck surgeries. He is on disability. Health Status Allergies No active allergies have been recorded. Review of Systems Review of Systems Constitutional: denies fever, denies chills. Head/Neck: headache. Eye: denies impaired vision. Ear/Nose/Mouth/Throat: denies decreased hearing. Neurologic: weakness, memory loss, speech problems, denies loss of sensation, denies paresthesias. Cardiovascular: denies chest pain, denies palpitations. Respiratory: denies cough, denies shortness of breath. Gastrointestinal: nausea, denies abdominal pain, denies vomiting. Genitourinary: denies dysuria. Musculoskeletal: denies joint pain. Psychiatric: decreased attention span. Family History Family Hx No family history items have been selected or recorded. Social History Social Habits History : Social Habits 01/28/2018 20:33 EDT Smoking Status Former smoker, quit more than 1 year ago Type of Tobacco Use Cigarettes Social Habits: Alcohol : Audit-C Alcohol Screen 01/28/2018 20:33 EDT How Often Do You Drink Alcohol 2 to 3 Times per Week (3) How Many Standard Drinks In A Day 1 or 2 (0) How Often Did You Have 6 or More Drinks Never (0) Attended AA No Audit-C Score 3 Physical Examination Last Charted Vital Signs Temperature: 99.5 (01/30 12:00) Pulse: 101 (01/30 11:30) Respiration: 14 (01/30 11:30) BP: 119/57 (01/30 14:00) Pulse Ox: 95 (01/30 06:43) Oxygen Delivery: Room air (01/30 12:00) Pain Score: 8 (01/30 10:00) General: alert, NAD, fatigued HEENT: nc/at, PERRL, eomi, mmm CV: distal limbs warm and well perfused Resp: non labored breathing GI: abdomen is soft, nt, nd Ext: no edema Neuro: MS: alert, oriented, to self, month, year; able to add coins, say days of the week backward, poor attention, not able to recall details from the accident. CN: intact Strength: not participating in MMT. Moves all four limbs. no focal weakness Sensation: decreased sensation bilateral feet. Results Review General Results Lab Results : LAB 02/03/2018 04:57 EDT Sodium Level 129 mMol/L LOW Potassium Level 3.8 mMol/L Chloride Level 94 mMol/L LOW Carbon Dioxide Level 23 mMol/L Anion Gap 12.0 mMol/L Glucose Level 138 mg/dL HI BUN 15 mg/dL Creatinine 1.01 mg/dL Est CrCl IBW (mL/min)-RX 76.17 mL/min Calcium Total 8.9 mg/dL WBC Count 6.5 thou/mcL Red Blood Cell Count 4.44 million/mcL Hemoglobin 13.8 gm/dL Hematocrit 39.5 % MCV 89.0 FL MCH 31.2 Picograms MCHC 35.1 gm/dL RDW 12.8 % Platelet Count 294 thou/mcL MPV 7.1 FL Impression and Plan Impression and Plan Assessment This is a 57 yo male with past medical history of Hypertension, hyperlipidema, diabetes, cervical stenosis who was admitted to [facility] on 01/28/2018 as a trauma found to have a severe TBI with R SDH. 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 Impaired mobility Weakness Dysphagia Plan: - Discussed TBI and recovery with his at length. - Discharge recommendation: recommend patient transition to [facility] level of care when medically ready. Patient can benefit and will tolerate 3 hrs of therapy per day. He requires ongoing physical, occupational and speech therapy. - advance diet per BOWLING BALL MOLD ASSEMBLER recommendations - monitor bowels. Thank you for allowing me to participate in the care of this patient. Please contact me with questions. Roxanna Maki DO GLUCOSE POCT Collected: 01/30/2018 Status: F Source: [facility] (UPLOADED) 4:02 PM HEALTH SYSTEM REPOSITORY TYPE CODE TESTS RESULT OUT OF REFERENCE UNITS RANGE LAB 2340-8(LOIN 70-110 mg/dL C) High Glucose 220 POCT-LAB Result Comment: Treatment ranges and critical values established by Patient Care Services. All follow-up actions were taken by Patient Care Services. Performed By: #### [id number] #### [facility] POINT OF CARE PROGRESS NOTES Observed: 01/30/2018 Status: F Source: [facility] 2:15 PM HEALTH SYSTEM REPOSITORY Patient: ONEIDA QUISPE MRN: [id number] Age: 57 years Sex: Male : 1960 Associated Diagnoses: None Author: Kenyon Natarajan MD Comments 01/30/2018 0840 Pt was seen, examined and discussed on rounds. FIndings reviwed. 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 - FU head CT demonstrated new IVH, recheck head CT in AM MS changes - confused.,slow, will need cognitive eval, PT, OT NV - improved neck pain - MRI did not demonstrate any acute fx's sull fx - non op mgmt DM - monitor gluc HTN - controlled HLD Kenyon Natarajan Temperature: 99.5 (01/30 12:00) Pulse: 101 (01/30 12:58) Respiration: 21 (01/30 12:58) BP: 151/77 (01/30 12:58) Pulse Ox: 95 (01/30 06:43) Oxygen Delivery: Room air (01/30 12:00) Pain Score: 8 (01/30 10:00) I and O Summary Begin date: 01/29 14:15 End date: 01/30 14:15 24 Hour Intake: Output: 3490.00 Balance: -1484.00 Last BM: No BM Charted 01/29/18 11:38:00 EDT, OK for mashed potatoes on all trays. Please send NTL milk on all trays 01/30/18 6:57:00 EDT, Full Liquid, 75 gm carb/Meal, [place] Thickened, Routine Labs - Last 36 hours (Max 2 / lab test) CHEMISTRY Sodium 136 (01/30 04:54) 136 (01/29 02:36) Potassium 4.2 (01/30 04:54) 5.1 (01/29 02:36) Chloride 106 (01/30 04:54) 103 (01/29 02:36) CO2 20 (01/30 04:54) 18 (01/29 02:36) Glucose 244 (01/30 04:54) 293 (01/29 02:36) Glucose POCT No result BUN 23 (01/30 04:54) 31 (01/29 02:36) Creatinine 1.19 (01/30 04:54) 1.53 (01/29 02:36) Calcium Total 8.3 (01/30 04:54) 8.8 (01/29 02:36) Magnesium No result HEMATOLOGY WBC 7.1 (01/30 04:54) 8.4 (01/29 18:14) RBC 3.90 (01/30 04:54) 4.10 (01/29 18:14) Hb 12.4 (01/30 04:54) 12.9 (01/29 18:14) Hematocrit 35.5 (01/30 04:54) 37.3 (01/29 18:14) Platelets 229 (01/30 04:54) 242 (01/29 18:14) MCV 91.1 (01/30 04:54) 91.0 (01/29 18:14) MCH 31.9 (01/30 04:54) 31.5 (01/29 18:14) RDW 13.1 (01/30 04:54) 12.9 (01/29 18:14) MCHC 35.0 (01/30 04:54) 34.6 (01/29 18:14) Neutrophil Ab No result Monocyte Ab No result Eosinophil Ab No result Basophil Ab No result Lymphocyte Ab No result COAGULATION Partial Thromboplastin (aPTT) 24.5 Sec (01/28 21:38) INR 1.08 (01/28 21:38) Prothrombintime (PT) 12.3 Sec (01/28 21:38) OTHER LABS Anion Gap 10.0 mMol/L (01/30 04:54) 15.0 mMol/L (01/29 02:36) Est CrCl IBW (mL/min)-RX 64.65 mL/min (01/30 04:54) 50.28 mL/min (01/29 02:36) GFR Est. Non >60 mL/min (01/30 04:54) >60 mL/min (01/28 18:32) GFR Est. Anais >60 mL/min (01/30 04:54) >60 mL/min (01/28 18:32) Creatine Kinase Random 116 Units/L (01/28 18:32) Alcohol (Ethanol) Level <0.01 gm/dL (01/28 18:32) Amphetamine Scr Urine NEGATIVE (01/29 02:19) Barbiturates Scr Urine NEGATIVE (01/29 02:19) Benzodiazepine Scr Urine NEGATIVE (08/16 02:19) Cocaine Scr Urine NEGATIVE (01/29 02:19) Methadone Scr Urine NEGATIVE (01/29 02:19) Opiate Scr Urine POSITIVE (01/29 02:19) Oxycodone Scr Urine NEGATIVE (01/29 02:19) Tetrahydrocannabinoid Scr NEGATIVE (01/29 02:19) MPV 7.3 FL (01/30 04:54) 7.4 FL (01/29 18:14) Platelet Function Analysi 96 Sec (01/28 21:38) Occult Blood Feces POSITIVE (01/29 09:38) Blood Type ABO and Rh(D) ANEG (01/28 18:32) Antibody Screen Interpret NEGATIVE (01/28 18:32) Draw and Hold NOTNEED (01/29 18:08) GLUCOSE POCT Collected: 01/30/2018 Status: F Source: [facility] (UPLOADED) 11:39 AM HEALTH SYSTEM REPOSITORY TYPE CODE TESTS RESULT OUT OF REFERENCE UNITS RANGE LAB 2340-8(LOIN 70-110 mg/dL C) High Glucose 300 POCT-LAB Result Comment: Treatment ranges and critical values established by Patient Care Services. All follow-up actions were taken by Patient Care Services. Performed By: #### [id number] #### [facility] POINT OF CARE PROGRESS NOTES Observed: 01/30/2018 Status: C Source: [facility] 11:21 AM HEALTH SYSTEM REPOSITORY Patient: ONEIDA QUISPE Age: 57 years Sex: Male : 1960 Associated Diagnoses: None Author: O'Celena Godwin CNP Subjective Complains of headache, denies nausea, vomiting Objective: Pt resting in bed in no acute distress, poor short term memory. Health Status Allergies No active allergies have been recorded. Results Review General Results Lab Results : LAB 01/30/2018 04:54 EDT Sodium Level 136 mMol/L Potassium Level 4.2 mMol/L Chloride Level 106 mMol/L Carbon Dioxide Level 20 mMol/L LOW Anion Gap 10.0 mMol/L Glucose Level 244 mg/dL HI BUN 23 mg/dL HI Creatinine 1.19 mg/dL Est CrCl IBW (mL/min)-RX 64.65 mL/min GFR Estimated Non >60 mL/min GFR Estimated >60 mL/min Calcium Total 8.3 mg/dL LOW WBC Count 7.1 thou/mcL Red Blood Cell Count 3.90 million/mcL LOW Hemoglobin 12.4 gm/dL LOW Hematocrit 35.5 % LOW MCV 91.1 FL MCH 31.9 Picograms MCHC 35.0 gm/dL RDW 13.1 % Platelet Count 229 thou/mcL MPV 7.3 FL Physical Examination Last Charted Vital Signs Temperature: 99.5 (01/30 08:00) Pulse: 105 (01/30 10:45) Respiration: 15 (01/30 10:45) BP: 135/64 (01/30 10:45) Pulse Ox: 95 (01/30 06:43) Oxygen Delivery: Room air (01/30 08:00) Pain Score: 8 (01/30 08:58) Pt sleepy, awakens to name. Flat affect: oriented to name, was able to state his is in the hospital- he is unsure of which hospital but able to identify which one when options provided. Took several attempts to get month correct, identified year. Pt has no recollection of why he is in the hospital or any memory of falling at home Face symmetrical, tongue midline moves x 4 TC with equal strength in all muscle groupings: no pronator drift negative hoffmans, down going toes PERRL 4mm, EOMs intact; denies blurred or double vision Complains of generalized soreness all over No de la rosa signs small amt of right baljinder-orbital ecchymosis, none on left Impression and Plan Communication: Critical Care Time: My attention was given to the direct care of this patient for 33 minutes of critical care. S/P presumed fall at home: found on the toilet confused and disoriented, broken glass and blood found at bottom of steps Traumatic right SDH noted on CT scan along with left Nondiplaced squamous temporal bone fracture: not clinically significant brain compression: warrants observation 01/29 MRV completed for questionable dural venous thrombosis- negative MRV5 01/29 CT C-T-L spine with no acute fractures: significant stenosis noted C4-5 C5-6, will address as an oupt once he's recovered from his TBI 01/29 MRI C-spine without ligamentous injury 01/29 Flex/Ex xrays without instability: c-collar DC'd Repeat CT this am showed increased right temporal contusion: stable SDH PT/OT/ST: eval and treat Ok to be OOB with assistance Tolerating diet, re-eval swallow today Defer diabetes management to trauma service : adding home insulin regime SCDs for DVT ppx: hold on heparin/lovenox at this time d/t SDH/IVH Repeat CT of brain in am: follow up right contusion Keep in ICU today; monitor for any acute changes Q2h NC/VS Na 136 Tmax 99.5 : blood cxs NTD SBP goals < 140 PLAN: CT of brain in am therapies probable Bruce Zazueta at discharge Keep in ICU today to watch for neuro changes NO AC/Antiplatelet/NSAIDs agents at this time: no chemical DVT ppx D/w Dr Flores on rounds Updated trauma services family and pt updated Patient seen and examined by me. Agree with above. PROGRESS NOTES Observed: 01/30/2018 Status: F Source: [facility] 6:50 AM HEALTH SYSTEM REPOSITORY Patient: ONEIDA QUISPE MRN: [id number] Age: 57 years Sex: Male : 1960 Associated Diagnoses: None Author: Jordyn Hernandez CNP TRAUMA PROGRESS NOTE Supervising Physician Comments ACUTE PROBLEMS and PLANS: S/P fall down stairs Closed head injury with SDH; TBI - right frontal SAH 5mm with 3mm shift to left Neurosurgery consult; assistance appreciated - non-op managment - repeat CT head 01/29 AM notes new IVB with stable SDH - possible dural venous thrombosis noted - MRV completed; unremarkable - serial neuro checks - HOB up 30 degrees - increase activity and diet as per NS recs -headache, nausea - improving - pain control; antiemetics rCTH 01/30 notes contusion left temporal lobe rCTH pending 01/31 - cog eval - speech swallow eval; currently FLD with nectar thickened liquids Skull fx; L squamous temporal bone fx - NS management - assistance appreciated - pain control - serial neuro checks Cervical spine pain - NS consult and mangement; assistance appreciated - CS CT stable; known CS stenosis with prior surgical intervention 3 years ago - residual unsteadiness in mobility - MRI CS 01/29 AM as per NS recs- notes severe narrowing C4- 5 with flattening of cord - serial neuro checks - pain control -flex/ex films 01/30 do not demonstrate CS instability Nausea and Vomiting - nausea improved; 1 emesis during night; pale yellow fluid -H and H stable -Pepcid BID -po intake improving Mild dehydration - improved - BUN/Creat normalized - continue gentle IVF hydration at 75 cc/hr until adequate po intake - strict I and O - monitor Co-morbid conditions HTN - HTN managment with goal BP < 140 per NS recs - continue home meds DM - target glucose < 180 - POCT glucose monitoring - SSI coverage prn; aggressive scale with glucoses 190 - 250's - carb control diet - start long acting coverage BID - monitor Disposition - clinical course to determine - likely to require IP rehab 2/2 TBI - LE venous doppler (surveilence) in preparation for rehab - d/c Stubbs - continue strict I and O -PM and R consult -PT/OT and speech (swallow and cog evals) -SW assistance appreciated Jordyn Hernandez, [facility] Trauma Service [phone] CO-MORBIDITIES: HTN, DM, HLD, Cervical spine stenosis (prior op), prior smoker (heavy) PREVENTIVE: GI: Pepcid/ FLD DVT: SCDs, mobilize - check surveilence Doppler LE Pain: Tylenol, Morrill, Dilaudid Pain Score: 2 - 10 out of 10 SYSTEMS BASED EXAMINATION: Neuro: AAOx2; (self and hospital); states May as month and 1999 something as year; speech clear +FC; Motor/sensory grossly intact HEENT: Vision normal, PERRL, EOMI, parietal headache CV: HRRR s murmur, NSR per bedside monitor; peripheral pulses 2+; no edema Pulm: BS=B, CTA with good aeration throughout Abd: Soft, non TTP; normoactive bowel sounds; (+) flatus, no BM : Stubbs in place; Urine clear/yellow FEN: MVIF/WNL/FLD ID/LINES: PIV UOP = 950/450/740 BM = 0 RADIOLOGY: REPORT EXAMINATION TYPE: CT Head w/o Contrast DATE OF EXAM ORDERED: 01/30/2018 5:14 AM HISTORY: Decision Support; Head trauma, mod-severe, GCS<13, initial exam, COMPARISON: NONE FINDINGS: Stable right-sided subdural hematoma. There is some decreased parenchymal density within the lateral aspect of the right temporal lobe. This is consistent with a temporal lobe contusion. A small amou nt of subarachnoid and/or parenchymal blood is seen surrounding the contusion. Blood is layering in the occipital horns of the lateral ventricles similar to the prior exam. No significant midline shift is seen. IMPRESSION: No significant interval change in the appearance of the brain. Felicity Rodriguez thanks you for the opportunity to care for your patient. Workstation ID: [id number] - [id number] Signature Line FINAL REPORT Dictated By: Terry Cunha MD 01/30/2018 05:35 Assigned Physician: Terry Cunha MD REPORT CERVICAL SPINE 2 VIEWS, FLEXION EXTENSION PROJECTIONS: CLINICAL STATEMENT: Trauma. Fall. COMPARISON: CT 01/28/2015 FINDINGS: Solid fusion with plate and screw fixation noted at C3-4. There is disc space narrowing at the C4-5 disc level with anterior displacement of C4 by approximately 4-5 mm. No significant instability note d between flexion and extension. There is marked disc space narrowing and marginal osteophytes at C5-6. No acute fracture or focal prevertebral soft tissue swelling identified. IMPRESSION: Severe degenerative change. C4-5 anterolisthesis. No significant instability. Felicity Rodriguez thanks you for the opportunity to care for your patient. Workstation ID: [id number] - PS360 Signature Line FINAL REPORT Dictated By: Jarocho Tripp MD 01/29/2018 15:58 Assigned Physician: Jarocho Tripp MD REPORT EXAMINATION TYPE: CT Head w/o Contrast DATE OF EXAM ORDERED: 01/29/2018 5:40 AM HISTORY: Decision Support; Head trauma, delayed recovery, follow up ; Head trauma, no neuro decline, follow up, COMPARISON: NONE FINDINGS: On today's examination there is a small hematoma level within both occipital horns of the left lateral ventricle. Persistent subdural hematoma in the lateral right frontal and temporal regions. On tod ay's examination note is made of an empty delta sign the torcula. This raises the question of a possible dural sinus thrombosis. Consider correlation with CTV. IMPRESSION: Interval development of intraventricular blood. There is also suggestive evidence of a dural venous thrombosis present. Follow-up with CTV is recommended. Felicity Rodriguez thanks you for the opportunity to care for your patient. Workstation ID: [id number] - PS360 Signature Line FINAL REPORT Dictated By: Terry Cunha MD 01/29/2018 05:45 Assigned Physician: Terry Cunha MD Vital Signs (Past 36 Hours) Last Charted Minimum Maximum Temperature 97 (01/30 00:00) 97 (01/30 00:00) 101.1 (01/29 02:05) Pulse 102 (01/30 06:43) 98 (01/28 19:00) 122 (01/29 02:28) Resp 27 (01/30 06:43) 9 (01/29 14:10) 27 (01/30 06:43) Pulse Ox 95 (01/30 06:43) 92 (01/30 02:28) 99 (01/29 06:22) Pain Score 2 (01/30 06:43) 2 (01/30 06:43) 10 (01/29 16:52) BP 161/79 (01/30 06:43) Minimum Maximum Systolic BP 105/55 (01/29 02:28) 161/79 (01/30 06:43) Diastolic BP 115/54 (01/29 01:23) 144/84 (01/28 20:10) I and O Summary Begin Date: 01/29/18 00:00 End Date: 01/29/18 23:59 Input: 2357 Output: 0 Stools: 0 Other Output: 1825 Total Output: 1825 I and O Difference: 532 Labs - Last 36 hours (Max 2 / lab test) CHEMISTRY Sodium 136 (01/30 04:54) 136 (01/29 02:36) Potassium 4.2 (01/30 04:54) 5.1 (01/29 02:36) Chloride 106 (01/30 04:54) 103 (01/29 02:36) CO2 20 (01/30 04:54) 18 (01/29 02:36) Glucose 244 (01/30 04:54) 293 (01/29 02:36) Glucose POCT No result BUN 23 (01/30 04:54) 31 (01/29 02:36) Creatinine 1.19 (01/30 04:54) 1.53 (01/29 02:36) Calcium Total 8.3 (01/30 04:54) 8.8 (01/29 02:36) Magnesium No result HEMATOLOGY WBC 7.1 (01/30 04:54) 8.4 (01/29 18:14) RBC 3.90 (01/30 04:54) 4.10 (01/29 18:14) Hb 12.4 (01/30 04:54) 12.9 (01/29 18:14) Hematocrit 35.5 (01/30 04:54) 37.3 (01/29 18:14) Platelets 229 (01/30 04:54) 242 (01/29 18:14) MCV 91.1 (01/30 04:54) 91.0 (01/29 18:14) MCH 31.9 (01/30 04:54) 31.5 (01/29 18:14) RDW 13.1 (01/30 04:54) 12.9 (01/29 18:14) MCHC 35.0 (01/30 04:54) 34.6 (01/29 18:14) Neutrophil Ab No result Monocyte Ab No result Eosinophil Ab No result Basophil Ab No result Lymphocyte Ab No result COAGULATION Partial Thromboplastin (aPTT) 24.5 Sec (01/28 21:38) INR 1.08 (01/28 21:38) Prothrombintime (PT) 12.3 Sec (01/28 21:38) OTHER LABS Anion Gap 10.0 mMol/L (01/30 04:54) 15.0 mMol/L (01/29 02:36) Est CrCl IBW (mL/min)-RX 64.65 mL/min (01/30 04:54) 50.28 mL/min (01/29 02:36) GFR Est. Non >60 mL/min (01/30 04:54) >60 mL/min (01/28 18:32) GFR Est. Anais >60 mL/min (01/30 04:54) >60 mL/min (01/28 18:32) Creatine Kinase Random 116 Units/L (01/28 18:32) Alcohol (Ethanol) Level <0.01 gm/dL (01/28 18:32) Amphetamine Scr Urine NEGATIVE (01/29 02:19) Barbiturates Scr Urine NEGATIVE (01/29 02:19) Benzodiazepine Scr Urine NEGATIVE (01/29 02:19) Cocaine Scr Urine NEGATIVE (01/29 02:19) Methadone Scr Urine NEGATIVE (01/29 02:19) Opiate Scr Urine POSITIVE (01/29 02:19) Oxycodone Scr Urine NEGATIVE (01/29 02:19) Tetrahydrocannabinoid Scr NEGATIVE (01/29 02:19) MPV 7.3 FL (01/30 04:54) 7.4 FL (01/29 18:14) Platelet Function Analysi 96 Sec (01/28 21:38) Occult Blood Feces POSITIVE (01/29 09:38) Blood Type ABO and Rh(D) ANEG (01/28 18:32) Antibody Screen Interpret NEGATIVE (01/28 18:32) Draw and Hold NOTNEED (01/29 18:08) Health Status Allergies No allergies have been recorded. Medication List (Selected) Inpatient Medications Ordered Colace*: 100 mg, PO, BID Compazine Inj*: 10 mg, IV Push, Q4h, PRN: See Comments Dextrose 50% Syringe*: 12.5 Gm, IV Push, PRN, PRN: See Comments Glucagon: 1 mg, Subcut, PRN, PRN: See Comments HYDROmorphone Inj: 0.5 mg, IV Push, Q2h, PRN: Pain - Moderate HydrALAZINE Inj: 10 mg, IV Push, Q4h, PRN: Blood Pressure - See Parameters in Order Milk of Magnesia 8%: 2,400 mg, PO, Bedtime, PRN: Constipation Multivitamin Tab*: 1 Tab, PO, Daily NiCARdipine Additive* 20 mg [2.5 mg/hr] + Sodium Chloride 0.9% 200 mL: 25 mL/hr, IV, Stop: 02/27/18 18:49:00 EDT Morrill 5 mg/325 mg*: 2 Tab, PO, Q4h, PRN: Pain - Moderate Normal Saline 1,000 mL: 75 mL/hr, IV, Stop: 02/28/18 8:59:00 EDT NovoLIN/HumuLIN-R Sliding Scale*: Aggressive Scale, Subcut, Q6h NovoLOG MIX 70/30: 1 Each, Subcut, Once Pharmacy Communication Order.: No anticoagulation, antiplatelets, NSAID, Comm, Communication Tylenol*: 650 mg, PO, Q4h, PRN: Pain-Mild/Fever greater than 100.4 (38C) Zofran Inj*: 4 mg, IV Push, Q6h, PRN: See Comments acetaminophen-HYDROcodone: 1 Tab, PO, Q4h, PRN: Pain - Moderate carvedilol: 12.5 mg, PO, Daily famotidine: 20 mg, IV Push, BID hydroCHLOROthiazide: 12.5 mg, PO, Daily labetalol: 10 mg, 2 mL, 60 mL/hr, IV Push, Q4h, PRN: Blood Pressure - See Parameters in Order losartan: 100 mg, PO, Daily Prescriptions Prescribed acetaminophen-HYDROcodone 325 mg-5 mg oral tablet: 1 Tab, PO, Q4h, Narcotic pain medications can be addictive, wean yourself from them as tolerated., PRN: as needed for pain, 42 Each, 0 Refill(s) docusate sodium 100 mg oral tablet: 1 Tab, PO, BID, for 14 Day(s), with plenty of water, PRN: as needed for constipation, 28 Tab, 0 Refill(s) Documented Medications Documented HumaLOG 100 units/mL injectable solution: Subcut, ac TID, Each, 0 Refill(s) NovoLOG MIX 70/30: Subcut, Once, Each, 0 Refill(s) carvedilol 12.5 mg oral tablet: 1 Tab, PO, Daily, Each, 0 Refill(s) hydroCHLOROthiazide 12.5 mg oral tablet: 1 Tab, PO, Daily, Each, 0 Refill(s) losartan 100 mg oral tablet: 1 Tab, PO, Daily, Each, 0 Refill(s) Physical Examination Last Charted Vital Signs Temperature: 97 (01/30 00:00) Pulse: 102 (01/30 06:43) Respiration: 27 (01/30 06:43) BP: 161/79 (01/30 06:43) Pulse Ox: 95 (01/30 06:43) Oxygen Delivery: Room air (01/30 06:43) Pain Score: 2 (01/30 06:43) CT HEAD W/O CONTRAST Observed: 01/30/2018 Status: F Source: [facility] 5:14 AM HEALTH SYSTEM REPOSITORY EXAMINATION TYPE: CT Head w/o Contrast DATE OF EXAM ORDERED: 01/30/2018 5:14 AM HISTORY: Decision Support; Head trauma, mod-severe, GCS<13, initial exam, COMPARISON: NONE FINDINGS: Stable right-sided subdural hematoma. There is some decreased parenchymal density within the lateral aspect of the right temporal lobe. This is consistent with a temporal lobe contusion. A small amou nt of subarachnoid and/or parenchymal blood is seen surrounding the contusion. Blood is layering in the occipital horns of the lateral ventricles similar to the prior exam. No significant midline shift is seen. IMPRESSION: No significant interval change in the appearance of the brain. Felicity Rodriguez thanks you for the opportunity to care for your patient. Workstation ID: [id number] - [id number] FINAL REPORT Dictated By: Terry Cunha MD 01/30/2018 05:35 Assigned Physician: Terry Cunha MD Reviewed and Electronically Signed By: Terry Cunha MD 01/30/2018 05:43 Transcribed by: SHAYNE 01/30/2018 05:35 Technologist: ALVERTO CBC Collected: 01/30/2018 Status: F Source: [facility] 4:54 AM HEALTH SYSTEM REPOSITORY TYPE CODE TESTS RESULT OUT OF REFERENCE UNITS RANGE LAB 95623-8(LO 142-424 thou/mcL INC) Normal Platelet Count 229 LAB 49503-7(LO 39.0-49.0 % INC) Low Hematocrit 35.5 LAB 92148-8(LO 27.0-34.0 Picograms INC) MCH Normal 31.9 LAB 75083-5(LO 6.2-12.1 FL INC) MPV Normal 7.3 LAB 98032-5(LO 11.0-14.8 % INC) RDW Normal 13.1 LAB 40880-7(LO 80.0-97.0 FL INC) MCV Normal 91.1 LAB 31683-2(LO 4.6-10.2 thou/mcL INC) WBC Normal Count 7.1 LAB 18140-8(LO 32.0-36.0 gm/dL INC) MCHC Normal 35.0 LAB 718-7(LOIN 13.5-17.5 gm/dL C) Low Hemoglobin 12.4 LAB 23628-8(LO 4.30-5.70 million/mcL INC) Low Red Blood Cell 3.90 Count Performed By: #### [id number] #### [facility] [address], [place] GFRAA Collected: 01/30/2018 Status: F Source: [facility] 4:54 AM HEALTH SYSTEM REPOSITORY TYPE CODE TESTS RESULT OUT OF RANGE REFERENCE UNITS LAB 25604-1(LO mL/min INC) GFR Normal Estimated >60 Result Comment: The MDRD equation has not been validated for those over 70 years, women, patients with serious co-morbid conditions, or with extremes of body size, muscle mass of nutritional status. Performed By: #### [id number], [id number], 39620-1 #### [facility] [address], [place] GFRBB Collected: 01/30/2018 Status: F Source: [facility] 4:54 AM [facility]ALTH SYSTEM REPOSITORY TYPE CODE TESTS RESULT OUT OF RANGE REFERENCE UNITS LAB 06924-3(LO mL/min INC) GFR Normal Estimated Non >60 Performed By: #### [id number], [id number], 85028-9 #### [facility] [address], [place] BASIC METABOLIC PANEL Collected: 01/30/2018 Status: F Source: [facility] 4:54 AM HEALTH SYSTEM REPOSITORY TYPE CODE TESTS RESULT OUT OF RANGE REFERENCE UNITS LAB 2160-0(ABRAHAM 0.60-1.30 mg/dL NC) Normal Creatinine 1.19 LAB 68401-0(LO 8-20 mg/dL INC) High BUN 23 LAB 2951-2(ABRAHAM 136-145 mMol/L NC) Sodium Normal Level 136 LAB 2075-0(ABRAHAM 98-107 mMol/L NC) Chloride Normal Level 106 LAB 90139-3(LO 8.9-10.3 mg/dL INC) Low Calcium Total 8.3 LAB 13734-3(LO 70-110 mg/dL INC) High Glucose Level 244 LAB 2823-3(ABRAHAM 3.6-5.1 mMol/L NC) Normal Potassium Level 4.2 LAB 26696-8(LO 6.0-18.0 mMol/L INC) Anion Normal Gap 10.0 Result Comment: PLEASE NOTE:The calculated Anion Gap(AGAP) does not include Potassium. LAB 2028-9(LOINC) 22-32 mMol/L Low Carbon Dioxide Level 20 Performed By: #### 29082-6, [id number], 76863-9 #### [facility] [address], [place] GLUCOSE POCT Collected: 01/30/2018 Status: F Source: [facility] (UPLOADED) 12:05 AM HEALTH SYSTEM REPOSITORY TYPE CODE TESTS RESULT OUT OF REFERENCE UNITS RANGE LAB 2340-8(LOIN 70-110 mg/dL C) High Glucose 192 POCT-LAB Result Comment: Treatment ranges and critical values established by Patient Care Services. All follow-up actions were taken by Patient Care Services. Performed By: #### 2430-8 #### [facility] POINT OF CARE CBC Collected: 01/29/2018 Status: F Source: [facility] 6:14 PM HEALTH SYSTEM REPOSITORY TYPE CODE TESTS RESULT OUT OF REFERENCE UNITS RANGE LAB 59407-4(LO 11.0-14.8 % INC) RDW Normal 12.9 LAB 718-7(LOIN 13.5-17.5 gm/dL C) Low Hemoglobin 12.9 LAB 84932-8(LO 32.0-36.0 gm/dL INC) MCHC Normal 34.6 LAB 30587-1(LO 4.30-5.70 million/mcL INC) Low Red Blood Cell 4.10 Count LAB 95746-0(LO 27.0-34.0 Picograms INC) MCH Normal 31.5 LAB 99621-4(LO 4.6-10.2 thou/mcL INC) WBC Normal Count 8.4 LAB 91360-0(LO 6.2-12.1 FL INC) MPV Normal 7.4 LAB 12038-4(LO 142-424 thou/mcL INC) Normal Platelet Count 242 LAB 60400-7(LO 80.0-97.0 FL INC) MCV Normal 91.0 LAB 90725-9(LO 39.0-49.0 % INC) Low Hematocrit 37.3 Performed By: #### 55715-5 #### [facility] [address], [place] HOLD CLOT (BLOOD Collected: 01/29/2018 Status: F Source: [facility]) 6:08 PM HEALTH SYSTEM REPOSITORY TYPE CODE TESTS RESULT OUT OF RANGE REFERENCE UNITS LAB 15495-3(ABRAHAM NC) Normal Draw and NOTNEED Hold Performed By: #### 29589-5 #### [facility] [address], [place] GLUCOSE POCT Collected: 01/29/2018 Status: F Source: [facility] (UPLOADED) 6:00 PM HEALTH SYSTEM REPOSITORY TYPE CODE TESTS RESULT OUT OF REFERENCE UNITS RANGE LAB 2340-8(LOIN 70-110 mg/dL C) High Glucose 216 POCT-LAB Result Comment: Treatment ranges and critical values established by Patient Care Services. All follow-up actions were taken by Patient Care Services. Performed By: #### 2430-8 #### [facility] POINT OF CARE PROVIDER CLARIFICATION Observed: 01/29/2018 Status: F Source: [facility] 4:10 PM HEALTH SYSTEM REPOSITORY Patient: ONEIDA QUISPE MRN: [id number] Age: 57 years Sex: Male : 1960 Associated Diagnoses: None Author: Belkis Moore RN Communication Please address the following: Patient Details: Clarification of the clinical significance of the findings of mass effect noted below is needed to accurately reflect the severity of your patient's illness. Clinical Indicators: CT of head 01/28 - There is a subdural hematoma overlying the right hemisphere. In the right frontal region this measures 5 mm in thickness. This extends from the right temporal re gion into the convexity. There is some extension along the falx and tentorium as well. There is mass effect with 3mm of shift to the left. Treatment: Admitted to Neuro ICU Risk Factors: 57 y/o admitted with documented traumatic SDH with loss of consciousness, temporal bone fracture, confusion and nausea/vomiting. Based on the above clinical indicators, please clarify the clinical significance of mass effect per the CT of head: ? Brain compression ? Clinically unable to further specify the clinical significance of the mass effect ? No clinically significant brain compression is present ? Other (please specify) ? Unable to determine NOTE: Use of terms such as suspected, possible, or probable (associated with a specific diagnosis being evaluated, monitored, or treated) are acceptable in the inpatient setting as long as documented a s such at the time of discharge. PLEASE DO NOT DOCUMENT YOUR RESPONSE ON THIS FORM. The additional documentation must be in the last Progress Note and/or Discharge Summary. Thank you, Clarisa Moore RN MA [facility] Pager: [phone] Phone at daytime desk: [phone] Phone in office for messages: [phone] To Respond: 1. Open the patient record and the document requiring the addendum. 2. Right click on the body of the document and select Modify. 3. Type a response to the query in the Insert Addendum Here field. 4. Click Sign. To Refuse: Select refuse and place a comment as to why the query is refused. For further assistance, on the [employer] homepage, click on the maroon icon in the upper right-hand corner (or go to Resources?Clinical Informatics ) then click on Job Aids and Doc umentation_Provider_Responding_To_Clarification. Comments Clarification Information: Document in: Progress Notes. Prepared by: Clinical Call Or Contact Centre Manager: Belkis Moore RN, Phone number: Pgr: [phone] Ph desk: [phone] Ph messages: [phone] . XR C-SPINE 2 OR 3 Observed: 01/29/2018 Status: F Source: [facility] VIEWS 3:27 PM HEALTH SYSTEM REPOSITORY CERVICAL SPINE 2 VIEWS, FLEXION EXTENSION PROJECTIONS: CLINICAL STATEMENT: Trauma. Fall. COMPARISON: CT 01/28/2015 FINDINGS: Solid fusion with plate and screw fixation noted at C3-4. There is disc space narrowing at the C4-5 disc level with anterior displacement of C4 by approximately 4-5 mm. No significant instability note d between flexion and extension. There is marked disc space narrowing and marginal osteophytes at C5-6. No acute fracture or focal prevertebral soft tissue swelling identified. IMPRESSION: Severe degenerative change. C4-5 anterolisthesis. No significant instability. Felicity Rodriguez thanks you for the opportunity to care for your patient. Workstation ID: [id number] - [id number] FINAL REPORT Dictated By: Jarocho Tripp MD 01/29/2018 15:58 Assigned Physician: Jarocho Tripp MD Reviewed and Electronically Signed By: Jarocho Tripp MD 01/29/2018 16:02 Transcribed by: SHAYNE 01/29/2018 15:58 Technologist: CARMEN READ PROGRESS NOTES Observed: 01/29/2018 Status: C Source: [facility] JENNIFER 1:19 PM HEALTH SYSTEM REPOSITORY Patient: ONEIDA QUISPE MRN: [id number] [facility]: [id number] Age: 57 years Sex: Male : 1960 Associated Diagnoses: None Author: O'Celena Godwin CNP Subjective Pt states he has some nausea and headache Objective: Pt resting in bed in no acute distress. Complains of CURRIE and nausea Family at bedside Health Status Allergies No active allergies have been recorded. Results Review General Results Lab Results : LAB 01/29/2018 02:36 EDT Sodium Level 136 mMol/L Potassium Level 5.1 mMol/L Chloride Level 103 mMol/L Carbon Dioxide Level 18 mMol/L LOW Anion Gap 15.0 mMol/L Glucose Level 293 mg/dL HI BUN 31 mg/dL HI Creatinine 1.53 mg/dL HI Est CrCl IBW (mL/min)-RX 50.28 mL/min Lab Results : LAB 01/29/2018 02:36 EDT WBC Count 10.0 thou/mcL Red Blood Cell Count 4.13 million/mcL LOW Hemoglobin 13.1 gm/dL LOW Hematocrit 37.5 % LOW MCV 90.8 FL MCH 31.7 Picograms MCHC 35.0 gm/dL RDW 13.1 % Platelet Count 277 thou/mcL Lab Results : LAB 01/29/2018 02:19 EDT Amphetamine Scr Urine NEGATIVE Barbiturates Scr Urine NEGATIVE Benzodiazepine Scr Urine NEGATIVE Cocaine Scr Urine NEGATIVE Methadone Scr Urine NEGATIVE Opiate Scr Urine POSITIVE (Modified) Oxycodone Scr Urine NEGATIVE Tetrahydrocannabinoid Scr Urine NEGATIVE Physical Examination Last Charted Vital Signs Temperature: 98.1 (01/29 12:00) Pulse: 105 (01/29 12:00) Respiration: 14 (01/29 12:00) BP: 125/66 (01/29 12:00) Pulse Ox: 99 (01/29 06:22) Oxygen Delivery: Room air (01/29 12:00) Pain Score: 10 (01/29 10:00) Pt awakens easily to name Oriented to name, place, knows he's in the hospital but not sure which one: intermittant confusion, short term memory issues: family states that confusion has improved No seizure activity noted No facial weakness noted, tongue midline PERRL 4mm, EOMs intact Pt denies blurred or double vision Complains of mild CURRIE Moves x 4 to command UE: tricep/bicep/deltoid 5/5, strong directional survey drafter bilaterally, no hoffmans LE: DF/PF/KF/HF 5/5, toes downgoing Denies parathesias Denies neck pain/collar on until flex/ext completed Impression and Plan Communication: Critical Care Time: My attention was given to the direct care of this patient for 40 minutes of critical care. S/P presumed fall at home: found on the toilet confused and disoriented, broken glass and blood found at bottom of steps Traumatic right SDH noted on CT scan along with left Nondiplaced squamous temporal bone fracture MRV completed for questionable dural venous thrombosis- negative MRV Repeat CT this am with stable right SDH and new IVH noted CT C-T-L spine with no acute fractures: significant stenosis noted C4-5 C5-6, will address as an oupt once he's recovered from his TBI MRI C-spine without ligamentous injury Denies neck pain but d/t his confusion and recent TBI: will obtain flex/ext films: if xrays ok, will DC c-collar Pt with confusion which is improving: remains intermittantly confused PT/OT/ST: eval and treat Ok to be OOB with assistance Ok for regular diet once N and V improved: pt passed swallow eval Defer diabetes management to trauma service SCDs for DVT ppx: hold on heparin/lovenox at this time d/t SDH/IVH Repeat CT of brain in am Keep in ICU today; monitor for any acute changes Q2h NC/VS Tmax 101: blood cxs pending SBP goals < 140 PLAN: flex/ext c-spine today CT of brain in am therapies probable Bruce Zazueta at discharge for cognitive needs Keep in ICU today to watch for neuro changes NO AC/Antiplatelet/NSAIDs agents at this time: no chemical DVT ppx D/w Dr Flores on rounds Updated trauma services family and pt updated Flex/Ex Xray reviewed 4-5mm anterolithesis: no instabilily OK to DC cervical collar Repeat CT of brain in am GLUCOSE POCT Collected: 01/29/2018 Status: F Source: [facility] (UPLOADED) 11:51 AM HEALTH SYSTEM REPOSITORY TYPE CODE TESTS RESULT OUT OF REFERENCE UNITS RANGE LAB 2340-8(LOIN 70-110 mg/dL C) High Glucose 257 POCT-LAB Result Comment: Treatment ranges and critical values established by Patient Care Services. All follow-up actions were taken by Patient Care Services. Performed By: #### 2430-8 #### [facility] POINT OF CARE CBC Collected: 01/29/2018 Status: F Source: [facility] 11:44 AM HEALTH SYSTEM REPOSITORY TYPE CODE TESTS RESULT OUT OF REFERENCE UNITS RANGE LAB 23628-9(LO 142-424 thou/mcL INC) Normal Platelet Count 253 LAB 26220-7(LO 39.0-49.0 % INC) Low Hematocrit 37.1 LAB 98776-6(LO 11.0-14.8 % INC) RDW Normal 12.7 LAB 718-7(LOIN 13.5-17.5 gm/dL C) Low Hemoglobin 13.0 LAB 85440-9(LO 32.0-36.0 gm/dL INC) MCHC Normal 35.1 LAB 83703-7(LO 27.0-34.0 Picograms INC) MCH Normal 32.0 LAB 79774-3(LO 4.30-5.70 million/mcL INC) Low Red Blood Cell 4.07 Count LAB 99823-0(LO 4.6-10.2 thou/mcL INC) WBC Normal Count 10.1 LAB 22699-6(LO 6.2-12.1 FL INC) MPV Normal 7.4 LAB 08466-7(LO 80.0-97.0 FL INC) MCV Normal 91.1 Performed By: #### 82571-6 #### [facility] [address], [place] GLUCOSE POCT Collected: 01/29/2018 Status: F Source: [facility] (UPLOADED) 9:47 AM HEALTH SYSTEM REPOSITORY TYPE CODE TESTS RESULT OUT OF REFERENCE UNITS RANGE LAB 2340-8(LOIN 70-110 mg/dL C) High Glucose 273 POCT-LAB Result Comment: Treatment ranges and critical values established by Patient Care Services. All follow-up actions were taken by Patient Care Services. Performed By: #### 2430-8 #### [facility] POINT [facility] OCCULT BLOOD FECES Collected: 01/29/2018 Status: F Source: [facility] 9:38 AM HEALTH SYSTEM REPOSITORY TYPE CODE TESTS RESULT OUT OF RANGE REFERENCE UNITS LAB 2335-8(ABRAHAM NEGATIVE NC) Abnormal Occult POSITIVE Blood Feces Performed By: #### 2335-8x1 #### [facility], [address] [place], [place] MRA HEAD W AND W/O Observed: 01/29/2018 Status: F Source: [facility] CONTRAST 8:07 AM HEALTH SYSTEM REPOSITORY EXAMINATION TYPE: MRA Head w and w/o Contrast 3-D reconstructive images DATE OF EXAM: 01/29/2018 8:07 AM HISTORY: Decision Support; Cerebral hemorrhage suspected, COMPARISON: Noncontrast head CT 01/29/2018. FINDINGS: Both sigmoid sinuses appear patent. Both transverse sinuses appear patent. The superior sagittal sinus appears patent. The deep internal cerebral veins appear patent. No intraluminal filling defects delineated. IMPRESSION: Unremarkable MRV. Felicity Rodriguez thanks you for the opportunity to care for your patient. Workstation ID: [id number] - [id number] FINAL REPORT Dictated By: Kvng Apodaca MD 01/29/2018 08:27 Assigned Physician: Kvng Apodaca MD Reviewed and Electronically Signed By: Kvng Apodaca MD 01/29/2018 08:46 Transcribed by: SHAYNE 01/29/2018 08:27 Technologist: KALI ALEXANDRA MRI C-SPINE W/O Observed: 01/29/2018 Status: F Source: [facility] CONTRAST 8:07 AM HEALTH SYSTEM REPOSITORY Reason for exam: Trauma EXAM: MR cervical spine without contrast COMPARISON: CT cervical spine 01/28/2018 FINDINGS: The exam is mildly degraded due to motion artifact. There is artifact related to the C3-4 ACDF hardware. Within this confine, there are no findings to suggest ligamentous injury and alignment appear similar to the prior CT with mild anterolisthesis of C4 on C5. There is a hemangioma within the T1 vertebral body. C2-3: There is no spinal canal narrowing. There is mild bilateral neural foraminal narrowing. C3-4: There is no spinal canal narrowing. There is mild bilateral neural foraminal narrowing. C4-5: There is severe canal narrowing with flattening of the cord due to the anterolisthesis and a broad-based disc osteophyte complex. There is moderate bilateral neural foraminal narrowing. C5-6: There is moderate spinal canal narrowing due to a broad- based disc osteophyte complex. There is moderate bilateral neural foraminal narrowing. C6-7: There is mild spinal canal narrowing due to a broad- based disc protrusion. There is mild bilateral neural foraminal narrowing. C7-T1: There is no spinal canal narrowing. There is mild left neural foraminal narrowing. IMPRESSION: Image quality is mildly degraded due to motion artifact and artifact related to the C3-4 ACDF hardware. Within this confine, no evidence of ligamentous injury. There is severe spinal canal narrowing a t C4-5 with flattening of the cord. No cord signal abnormality is identified. Felicity Rodriguez thanks you for the opportunity to care for your patient. Workstation ID: [id number] - [id number] FINAL REPORT Dictated By: Ignacio Mata DO 01/29/2018 08:26 Assigned Physician: Ignacio Mata DO Reviewed and Electronically Signed By: Ignacio Mata DO 01/29/2018 08:51 Transcribed by: SHAYNE 01/29/2018 08:26 Technologist: KALI ALEXANDRA PROGRESS NOTES Observed: 01/29/2018 Status: C Source: [facility] 7:16 AM HEALTH SYSTEM REPOSITORY Patient: ONEIDA QUISPE MRN: [id number] Age: 57 years Sex: Male : 1960 Associated Diagnoses: None Author: Kenyon Natarajan MD TRAUMA PROGRESS NOTE Supervising Physician Comments 01/29/2018 0845 Pt was seen, examined and discussed on rounds. FIndings reviwed. Developed some NV last pm. PE NAD neuro grossly non focal, cnfused as to date and other ssues clear bilat BS RRR abd soft, NT no aparent extremity trauma remainder of exam as per CHUCKING MACHINE OPERATOR assessmet CHI - FU head CT demonstrated new IVH, NS following MS changes - confused.,slow, will need cognitive eval, PT, OT NV - resolved, no blood in NGasp which is minimal - will guaiac skinner pain - MRI did not demonstrate any acute fx's sull fx - non op mgmt DM - monitor gluc HTN - controlled HLD Kenyon Natarajan ACUTE PROBLEMS and PLANS: S/P fall down stairs Closed head injury with SDH - right frontal SAH 5mm with 3mm shift to left Neurosurgery consult; assistance appreciated - non-op managment - repeat CT head 01/29 AM notes new IVB with stable SDH - possible dural venous thrombosis noted - MRV completed; unremarkable - serial neuro checks - HOB up 30 degrees - increase activity and diet as per NS recs -headache, nausea - pain control; antiemetics MRI brain pending 01/30 Skull fx; L squamous temporal bone fx - NS management - assistance appreciated - pain control - serial neuro checks Cervical spine pain - NS consult and mangement; assistance appreciated - CS CT stable; known CS stenosis with prior surgical intervention 3 years ago - residual unsteadiness in mobility - MRI CS 01/29 AM as per NS recs- notes severe narrowing C4- 5 with flattening of cord - serial neuro checks - pain control -flex/ex films pending 01/30 Nausea and Vomiting -NG aspirant (+) guiac -muddy brown fluid; no overt bleeding -H and H stable -Protonix -d/c NG; start diet if ok with NS Mild dehydration - slight elevation BUN/creat since admit - NPO; N and V -IVF hydration at 75 cc/hr - increase rate to 130 cc/hr -strict I and O - monitor Co-morbid conditions HTN - HTN managment with goal BP < 140 per NS recs - continue home meds DM - target glucose < 180 - POCT glucose monitoring - SSI coverage prn Disposition - clinical course to determine - likely to require IP rehab / TBI -PM and R consult -PT/OT and speech -SW assistance appreciated CO-MORBIDITIES: HTN, DM, HLD, Cervical spine stenosis (prior op), prior smoker (heavy) PREVENTIVE: GI: Protonix, NG with clear fluid and brown flecks to muddy brown fluid; (+) guiac DVT: SCDs Pain: Tylenol, Morrill, Dilaudid Pain Score: 3 - 8out of 10 SYSTEMS BASED EXAMINATION: Neuro: AAOx2; (self and hospital) +FC; Motor/sensory grossly intact HEENT: Vision normal, PERRL, EOMI CV: HRRR s murmur, NSR per bedside monitor; peripheral pulses 2+ Pulm: BS=B, CTA with good aeration throughout Abd: Soft, mild generalized TTP; normoactive bowel sounds; (+) flatus, no BM; NG as noted above : Stubbs in place; Urine clear/yellow FEN: MVIF/WNL/NPO - start diet ID/LINES: PIV UOP = 625 NGT = 100 BM = 0 RADIOLOGY: MRI CS: severe narrowing C4-5 with flattening of cord MRA Brain; normal MRV Reason For Exam Decision Support;Head trauma, delayed recovery, follow up ; Head trauma, no neuro decline, follow up Addendum Addendum: This exam was reviewed for purposes of MRV comparison. Previously described acute right subdural hematoma measures as large as 5 mm.. There is no midline shift currently. This is unchanged from the prior head CT. These findings were discussed with Lora Can NP at 8:53 AM Jenners thanks you for the opportunity to care for your patient. Workstation ID: [id number] - [id number] Signature Line FINAL REPORT Dictated By: Kvng Apodaca MD 01/29/2018 08:47 Assigned Physician: Kvng Apodaca MD Reviewed and Electronically Signed By: Kvng Apodaca MD 01/29/2018 08:54 Transcribed by: [facility] 01/29/2018 08:47 Technologist: ALVERTO REPORT EXAMINATION TYPE: CT Head w/o Contrast DATE OF EXAM ORDERED: 01/29/2018 5:40 AM HISTORY: Decision Support; Head trauma, delayed recovery, follow up ; Head trauma, no neuro decline, follow up, COMPARISON: NONE FINDINGS: On today's examination there is a small hematoma level within both occipital horns of the left lateral ventricle. Persistent subdural hematoma in the lateral right frontal and temporal regions. On tod ay's examination note is made of an empty delta sign the torcula. This raises the question of a possible dural sinus thrombosis. Consider correlation with CTV. IMPRESSION: Interval development of intraventricular blood. There is also suggestive evidence of a dural venous thrombosis present. Follow-up with CTV is recommended. Felicity Rodriguez thanks you for the opportunity to care for your patient. Workstation ID: [id number] - [id number] Signature Line FINAL REPORT Dictated By: Terry Cunha MD 01/29/2018 05:45 Assigned Physician: Terry Cunha MD Vital Signs (Past 36 Hours) Last Charted Minimum Maximum Temperature 98.5 (01/29 03:39) 98.4 (01/29 03:39) 101.1 (01/29 02:05) Pulse 114 (01/29 06:22) 93 (01/28 18:37) 122 (01/29 02:28) Resp 15 (01/29 06:22) 12 (01/29 00:15) 18 (01/28 23:36) Pulse Ox 99 (01/29 06:22) 95 (01/28 19:32) 99 (01/29 06:22) Pain Score 4 (01/29 04:29) 3 (01/29 01:57) 8 (01/29 04:18) BP 114/59 (01/29 06:22) Minimum Maximum Systolic BP 105/55 (01/29 02:28) 160/74 (01/28 18:37) Diastolic BP 115/54 (01/29 01:23) 144/84 (01/28 20:10) I and O Summary Begin Date: 01/28/18 00:00 End Date: 01/28/18 23:59 Input: 208 Output: 0 Stools: 0 Other Output: 300 Total Output: 300 I and O Difference: -92 Labs - Last 36 hours (Max 2 / lab test) CHEMISTRY Sodium 136 (01/29 02:36) 138 (01/28 18:32) Potassium 5.1 (01/29 02:36) 4.5 (01/28 18:32) Chloride 103 (01/29 02:36) 102 (01/28 18:32) CO2 18 (01/29 02:36) 23 (01/28 18:32) Glucose 293 (01/29 02:36) 172 (01/28 18:32) Glucose POCT No result BUN 31 (01/29 02:36) 27 (01/28 18:32) Creatinine 1.53 (01/29 02:36) 1.15 (01/28 18:32) Calcium Total 8.8 (01/29 02:36) 9.3 (01/28 18:32) Magnesium No result HEMATOLOGY WBC 10.0 (01/29 02:36) 10.8 (01/28 23:43) RBC 4.13 (01/29 02:36) 4.33 (01/28 23:43) Hb 13.1 (01/29 02:36) 13.6 (01/28 23:43) Hematocrit 37.5 (01/29 02:36) 39.2 (01/28 23:43) Platelets 277 (01/29 02:36) 261 (01/28 23:43) MCV 90.8 (01/29 02:36) 90.5 (01/28 23:43) MCH 31.7 (01/29 02:36) 31.4 (01/28 23:43) RDW 13.1 (01/29 02:36) 13.0 (01/28 23:43) MCHC 35.0 (01/29 02:36) 34.7 (01/28 23:43) Neutrophil Ab No result Monocyte Ab No result Eosinophil Ab No result Basophil Ab No result Lymphocyte Ab No result COAGULATION Partial Thromboplastin (aPTT) 24.5 Sec (01/28 21:38) INR 1.08 (01/28 21:38) Prothrombintime (PT) 12.3 Sec (01/28 21:38) OTHER LABS Anion Gap 15.0 mMol/L (01/29 02:36) 13.0 mMol/L (01/28 18:32) Est CrCl IBW (mL/min)-RX 50.28 mL/min (01/29 02:36) 66.90 mL/min (01/28 18:32) GFR Est. Non >60 mL/min (01/28 18:32) GFR Est. Anais >60 mL/min (01/28 18:32) Creatine Kinase Random 116 Units/L (01/28 18:32) Alcohol (Ethanol) Level <0.01 gm/dL (01/28 18:32) Amphetamine Scr Urine NEGATIVE (01/29 02:19) Barbiturates Scr Urine NEGATIVE (01/29 02:19) Benzodiazepine Scr Urine NEGATIVE (01/29 02:19) Cocaine Scr Urine NEGATIVE (01/29 02:19) Methadone Scr Urine NEGATIVE (01/29 02:) Opiate Scr Urine POSITIVE (01/29 02:) Oxycodone Scr Urine NEGATIVE (01/29 02:19) Tetrahydrocannabinoid Scr NEGATIVE (01/29 02:19) MPV 7.7 FL (01/29 02:36) 7.4 FL (01/28 23:43) Platelet Function Analysi 96 Sec (01/28 21:38) Blood Type ABO and Rh(D) ANEG (01/28 18:32) Antibody Screen Interpret NEGATIVE (01/28 18:32) Health Status Allergies No allergies have been recorded. Medication List (Selected) Inpatient Medications Ordered Colace*: 100 mg, PO, BID Compazine Inj*: 10 mg, IV Push, Q4h, PRN: See Comments Dextrose 50% Syringe*: 12.5 Gm, IV Push, PRN, PRN: See Comments Glucagon: 1 mg, Subcut, PRN, PRN: See Comments HYDROmorphone Inj: 0.5 mg, IV Push, Q2h, PRN: Pain - Moderate HydrALAZINE Inj: 10 mg, IV Push, Q4h, PRN: Blood Pressure - See Parameters in Order Milk of Magnesia 8%: 2,400 mg, PO, Bedtime, PRN: Constipation Multivitamin Tab*: 1 Tab, PO, Daily NiCARdipine Additive* 20 mg [2.5 mg/hr] + Sodium Chloride 0.9% 200 mL: 25 mL/hr, IV, Stop: 02/27/18 18:49:00 EDT Morrill 5 mg/325 mg*: 2 Tab, PO, Q4h, PRN: Pain - Moderate Normal Saline 1,000 mL: 75 mL/hr, IV, Stop: 02/27/18 19:24:00 EDT NovoLIN/HumuLIN-R Sliding Scale*: Standard Scale, Subcut, Q6h Pharmacy Communication Order.: No anticoagulation, antiplatelets, NSAID, Comm, Communication Tylenol*: 650 mg, PO, Q4h, PRN: Pain-Mild/Fever greater than 100.4 (38C) Zofran Inj*: 4 mg, IV Push, Q6h, PRN: See Comments acetaminophen-HYDROcodone: 1 Tab, PO, Q4h, PRN: Pain - Moderate carvedilol: 12.5 mg, PO, Daily famotidine: 20 mg, IV Push, BID hydroCHLOROthiazide: 12.5 mg, PO, Daily labetalol: 10 mg, 2 mL, 60 mL/hr, IV Push, Q4h, PRN: Blood Pressure - See Parameters in Order losartan: 100 mg, PO, Daily Documented Medications Documented HumaLOG 100 units/mL injectable solution: Subcut, ac TID, Each, 0 Refill(s) NovoLOG MIX 70/30: Subcut, Once, Each, 0 Refill(s) carvedilol 12.5 mg oral tablet: 1 Tab, PO, Daily, Each, 0 Refill(s) hydroCHLOROthiazide 12.5 mg oral tablet: 1 Tab, PO, Daily, Each, 0 Refill(s) losartan 100 mg oral tablet: 1 Tab, PO, Daily, Each, 0 Refill(s) Physical Examination Last Charted Vital Signs Temperature: 98.5 (01/29 03:39) Pulse: 114 (01/29 06:22) Respiration: 15 (01/29 06:22) BP: 114/59 (01/29 06:22) Pulse Ox: 99 (01/29 06:22) Oxygen Delivery: Room air (01/29 06:22) Pain Score: 4 (01/29 04:29) GLUCOSE POCT Collected: 01/29/2018 Status: F Source: [facility] (UPLOADED) 6:15 AM HEALTH SYSTEM REPOSITORY TYPE CODE TESTS RESULT OUT OF REFERENCE UNITS RANGE LAB 2340-8(LOIN 70-110 mg/dL C) High Glucose 266 POCT-LAB Result Comment: Treatment ranges and critical values established by Patient Care Services. All follow-up actions were taken by Patient Care Services. Performed By: #### 2430-8 #### [facility] POINT OF CARE CT HEAD W/O CONTRAST Observed: 01/29/2018 Status: C Source: [facility] JENN[facility] 5:40 AM HEALTH SYSTEM REPOSITORY Addendum: This exam was reviewed for purposes of MRV comparison. Previously described acute right subdural hematoma measures as large as 5 mm.. There is no midline shift currently. This is unchanged from the prior head CT. These findings were discussed with Lora Can NP at 8:53 AM Felicity Rodriguez thanks you for the opportunity to care for your patient. Workstation ID: [id number] - [id number] FINAL REPORT Dictated By: Kvng Apodaca MD 01/29/2018 08:47 Assigned Physician: Kvng Apodaca MD Reviewed and Electronically Signed By: Kvng Apodaca MD 01/29/2018 08:54 Transcribed by: SHAYNE 01/29/2018 08:47 Technologist: ALVERTO EXAMINATION TYPE: CT Head w/o Contrast DATE OF EXAM ORDERED: 01/29/2018 5:40 AM HISTORY: Decision Support; Head trauma, delayed recovery, follow up ; Head trauma, no neuro decline, follow up, COMPARISON: NONE FINDINGS: On today's examination there is a small hematoma level within both occipital horns of the left lateral ventricle. Persistent subdural hematoma in the lateral right frontal and temporal regions. On tod ay's examination note is made of an empty delta sign the torcula. This raises the question of a possible dural sinus thrombosis. Consider correlation with CTV. IMPRESSION: Interval development of intraventricular blood. There is also suggestive evidence of a dural venous thrombosis present. Follow-up with CTV is recommended. Felicity Rodriguez thanks you for the opportunity to care for your patient. Workstation ID: [id number] - [id number] FINAL REPORT Dictated By: Terry Cunha MD 01/29/2018 05:45 Assigned Physician: Terry Cunha MD Reviewed and Electronically Signed By: Terry Cunha MD 01/29/2018 05:51 Transcribed by: SHAYNE 01/29/2018 05:45 Technologist: ALVERTO Observed: 01/29/2018 Status: F Source: [facility] CULTURE BLOOD 2:45 AM HEALTH SYSTEM REPOSITORY [facility] Microbiology PROCEDURE: Culture Blood SOURCE: Blood BODY SITE: COLLECTED DATE/TIME: 01/29/2018 02:45 EDT RECEIVED DATE/TIME: 01/29/2018 02:45 EDT START DATE/TIME: 01/29/2018 02:45 EDT FREE TEXT SOURCE: BLOOD INTERFACED REPORTS Final Report [] Verified Date/Time/Personnel: 02/03/2018 13:37 EDT CONTRIBUTOR_SYSTEM, CO_PN NO GROWTH AT 5 DAYS Preliminary Report [] Verified Date/Time/Personnel: 01/30/2018 02:10 EDT CONTRIBUTOR_SYSTEM, CO_PN NO GROWTH. CULTURE IN PROGRESS. POSITIVE CULTURES WILL BE PHONED TO THE UNIT/FLOOR. Performed By: #### 600-7 #### [facility] [address], [place] CONSULTATION Observed: 01/29/2018 Status: F Source: [facility] 2:44 AM HEALTH SYSTEM REPOSITORY Patient: ONEIDA QUISPE MRN: [id number] Age: 57 years Sex: Male : 1960 Associated Diagnoses: None Author: Teri Judd CNP Supervising Physician Comments Dr. Flores Admission Information Reason for consultation Traumatic SDH. Requesting Source The Requesting source is Trauma service. Accompanied By: the patient's spouse. Source of History Source of History: the patient, the patient's spouse, the patient's medical record. Date of Admission 01/28/2018 Date of Consultation 01/28/2018 Admitting Diagnosis Neck pain (BJP76-GD M54.2, Working, Medical). Traumatic intracranial subdural hemorrhage (EAA82-TT S06.5X9A, Working, Medical). History of Present Illness Pt. is a 57 yo male who presented to ED for altered mental status and likely fall. PMH includes HTN, HLD, DM, cervical stenosis s/p surgery x3 years ago. Per , pt's last known normal was on 01/28 a t around 0800. Around 1700, came home and found pt. sitting on the toilet. She states that he appeared to be sitting there for sometime. He had significantly altered mental status and kept sayin g sick repeatedly but could not elaborate on what had happened. He was heaving and appeared to have some blood in his vomit. She states that it appeared that he had fallen down the stairs as she fou nd blood and pt's broken glasses at the bottom of the staircase. also states that pt. is very clumsy and has poor balance at baseline s/t cervical stenosis. EMS was called and pt. taken to ED. T rauma work-up revealed right SDH. Pt. specifically states that he has severe headache, as well as neck and back pain. Pt. keeps repeating that he is cold. It is unclear if his answers to other questi ons are accurate because pt. is yes to everything. Per , pt. does not take any blood thinners. Past Medical History HTN HLD DM Cervical stenosis Surgical History Surgery for cervical stenosis x3 years ago in [place] Carpal tunnel surgery x2 years ago Health Status Allergies No active allergies have been recorded. Medication List Medications reviewed. Review of Systems ROS Unable to obtain due to: clinical condition. Family History Family Hx No family history items have been selected or recorded. Social History Drinks alcohol occassionally but does not think that pt. was drinking around the time of the incident. Was a heavy smoker but quit x3 years ago. Has used illicit drugs when he was younger but w mono states no illicit substance use currently. Physical Examination Exam performed at ~ 1915 on 01/28. General: Alternating between very drowsy and appearing to be in severe pain/distress. Neuro: Has to be repeatedly stimulated to stay awake. Oriented to self and year. Speech mumbled, somewhat inteligible. Pupils 3 mm, reactive. EOMs grossly intact; no nystagmus. Face symmetrical at rest, does not smile or protrude tongue to command. Weak grasp to command on right. When asked to perform strength testing, pt. states I can't and does not appear to be trying, but oves all extremi ties purposefully, appears to be fairly strong and equal. M/S: Pt. states yes at all points when asked about point tenderness over C-spine. Pt. decline to roll on side in order to palpate back. Last Charted Vital Signs Temperature: 98.5 (01/29 02:28) Pulse: 122 (01/29 02:28) Respiration: 16 (01/29 02:28) BP: 105/55 (01/29 02:28) Pulse Ox: 99 (01/29 02:28) Oxygen Delivery: Room air (01/29 02:28) Pain Score: 4 (01/29 02:28) Results Review General Results Lab Results : LAB 01/29/2018 02:28 EDT Glucose POCT-LAB 253 mg/dL 01/29/2018 02:19 EDT Amphetamine Scr Urine NEGATIVE Barbiturates Scr Urine NEGATIVE Benzodiazepine Scr Urine NEGATIVE Cocaine Scr Urine NEGATIVE Methadone Scr Urine NEGATIVE Opiate Scr Urine POSITIVE (Modified) Oxycodone Scr Urine NEGATIVE Tetrahydrocannabinoid Scr Urine NEGATIVE Color Urine YELLOW Appearance Urine CLEAR Specific [place] Urine 1.018 pH Urine 5.0 Glucose Urine 50MG/DL Ketones Urine 20MG/DL Bilirubin Urine NEGATIVE Blood Urine NEGATIVE Urobilinogen Urine NORMAL Leukocyte Esterase Urine NEGATIVE Nitrite Urine NEGATIVE Protein Urine 30MG/DL WBC Urine 3 /hpf RBC Urine 1 /hpf Hyaline Casts 5 /lpf 01/29/2018 00:15 EDT Glucose POCT-LAB 253 mg/dL PA 01/28/2018 23:43 EDT WBC Count 10.8 thou/mcL HI Red Blood Cell Count 4.33 million/mcL Hemoglobin 13.6 gm/dL Hematocrit 39.2 % MCV 90.5 FL MCH 31.4 Picograms MCHC 34.7 gm/dL RDW 13.0 % Platelet Count 261 thou/mcL MPV 7.4 FL 01/28/2018 21:38 EDT Prothrombin Time (PT) 12.3 Sec INR 1.08 Partial Thromboplastin (aPTT) 24.5 Sec Platelet Function Analysis Epinephrine 96 Sec (Modified) 01/28/2018 20:36 EDT Glucose POCT-LAB 184 mg/dL PA 01/28/2018 18:32 EDT Sodium Level 138 mMol/L Potassium Level 4.5 mMol/L Chloride Level 102 mMol/L Carbon Dioxide Level 23 mMol/L Anion Gap 13.0 mMol/L Glucose Level 172 mg/dL HI BUN 27 mg/dL HI Creatinine 1.15 mg/dL Est CrCl IBW (mL/min)-RX 66.90 mL/min GFR Estimated Non >60 mL/min GFR Estimated >60 mL/min Calcium Total 9.3 mg/dL Creatine Kinase Random 116 Units/L Alcohol (Ethanol) Level <0.01 gm/dL WBC Count 12.2 thou/mcL HI Red Blood Cell Count 4.64 million/mcL Hemoglobin 14.5 gm/dL Hematocrit 42.0 % MCV 90.5 FL MCH 31.2 Picograms MCHC 34.4 gm/dL RDW 12.9 % Platelet Count 278 thou/mcL MPV 7.3 FL Blood Type ABO and Rh(D) ANEG Antibody Screen Interpretation NEGATIVE Reason For Exam Decision Support;Head trauma, minor, GCS>=13, high clinical risk, initial exam REPORT EXAMINATION TYPE: CT Head w/o Contrast, CT Maxillofacial w/o Contrast, CT C-Spine w/o Contrast DATE OF EXAM ORDERED: 01/28/2018 6:27 PM HISTORY: Decision Support; Head trauma, minor, GCS>=13, high clinical risk, initial exam, patient fell COMPARISON: NONE TECHNIQUE: Axial images were obtained. Scanning was performed through the brain without IV contrast. FINDINGS: There is partial opacification of the mastoid air cells on the left. There is a nondisplaced fracture through the squamous temporal bone on the left. There is a subdural hematoma overlying the right hemisphere. In the right frontal region this measures 5 mm in thickness. This extends from the right temporal region into the convexity. There is some extension along the falx and tentorium as well. There is mass effect with 3 mm of shift to the left. Ventricular size is normal. IMPRESSION: 1. Nondisplaced fracture of the left squamous temporal bone 2. There is a subdural hematoma overlying the right hemisphere with a small amount of shift to the left. FACIAL BONE CT FINDINGS: The fracture of the left squamous temporal bone is again demonstrated. No other fractures are seen. There is significant sinus opacification most pronounced within the sphenoid and ethmoid sinuses. No fluid levels. IMPRESSION: 1. Nondisplaced fracture through the squamous temporal bone on the left 2. Large amount of paranasal sinus disease CERVICAL SPINE CT FINDINGS: There has been anterior fusion at C3-C4. There are 2 mm anterior subluxation of C4 on C5. There is disc narrowing at C4-C5 and C5-C6. No fractures. C2-C3: Mild foraminal narrowing bilaterally with general facet changes C3-C4: Mild foraminal narrowing on the left with degenerative facet changes C4-C5: Moderate foraminal narrowing with degenerative facet changes C5-C6: Posterior osteophytes. Sac measures 1 cm. Moderate foraminal narrowing C6-C7: Mild foraminal narrowing on the right C7-T1: Mild foraminal narrowing bilaterally IMPRESSION: 1. No acute findings 2. Moderate degenerative changes with foraminal narrowing most pronounced C4-C5 and C5-C6 3. Stable postoperative changes Impression and Plan SDH, neck/back pain s/t likely fall down stairs - Imaging -- HCT/CT maxillofacial 01/28: right SDH with small shift, nondisplace left squamous temporal bone fx -- CT C/T/L-spine 01/28: NAF -- MRI C-spine this AM - No emergent neurosurgical intervention indicated at this time; further plans pending MRI results - Neuro exam stable -- Neuro checks q1h, please call for changes in neuro status - Pain control: Morrill, Dilaudid PRN - Maintain SBP < 140 -- SBP currently 100s to 110s w/o intervention; SBP was 160s in ED -- Scheduled Coreg, HCTZ, losartan - has not taken yet -- Nicardipine gtt - started in ED but currently off; hydralazine, labetalol PRN - not using - No anticoagulation, antiplatelets, NSAIDs -- PT/INR, PTT, PFA nml on admission - VTE prophylaxis: SCDs - GI prophylaxis: famotidine - Bowel regimen: docusate; MOM PRN - Voiding: Stubbs for accurate UOP monitoring in critically ill pt. - Diet: NPO, NGT in place - Fluids: NS at 75 ml/hr - Activity: hard cervical collar at all times; keep HOB elevated > 30 degrees, head in midline position; PT/OT consulted Tachycardia, decreasing BP - HR persistently in 120s, has been increasing since arrival - BP decreasing since arrival - nicardipine now off - Hgb 14.5 on arrival, repeat 13.6 at 2345 - repeat CBC pending - Ordered NS 1 L bolus Fever, leukocytosis - Tmax 101.9 axillary, most recent temp 98.5 orally - WBC 12.2 on admission, repeat 10.8 - CXR 01/28: nml - Blood cx pending, UA neg - Tylenol PRN DM - Goal BG < 180 -- BG 172-253 - Standard SSI - Management per Trauma Other medical conditions - Management per Trauma Disposition - No emergent neurosurgical intervention indicated at this time - MRI C-spine this AM - Pending clinical course Impression and Plan Diagnosis Neck pain (JZA18-SV M54.2, Working, Medical). Traumatic intracranial subdural hemorrhage (EDL01-BS S06.5X9A, Working, Medical). BASIC METABOLIC PANEL Collected: 01/29/2018 Status: F Source: [facility] 2:36 AM HEALTH SYSTEM REPOSITORY TYPE CODE TESTS RESULT OUT OF RANGE REFERENCE UNITS LAB 81969-7(LO 8.9-10.3 mg/dL INC) Low Calcium Total 8.8 LAB 2028-9(ABRAHAM 22-32 mMol/L NC) Low Carbon Dioxide Level 18 LAB 2160-0(ABRAHAM 0.60-1.30 mg/dL NC) High Creatinine 1.53 LAB 48227-9(LO 6.0-18.0 mMol/L INC) Anion Normal Gap 15.0 Result Comment: PLEASE NOTE:The calculated Anion Gap(AGAP) does not include Potassium. LAB 2075-0(LOINC) 98-107 mMol/L Normal Chloride Level 103 LAB 38334-7(LOINC) 70-110 mg/dL High Glucose Level 293 LAB 2951-2(LOINC) 136-145 mMol/L Normal Sodium Level 136 LAB 65379-5(LOINC) 8-20 mg/dL BUN High 31 LAB 2823-3(LOINC) 3.6-5.1 mMol/L Normal Potassium Level 5.1 Performed By: #### 63043-3 #### [facility] [address], [place] CBC Collected: 01/29/2018 Status: F Source: [facility] 2:36 AM HEALTH SYSTEM REPOSITORY TYPE CODE TESTS RESULT OUT OF REFERENCE UNITS RANGE LAB 65221-2(LO 6.2-12.1 FL INC) MPV Normal 7.7 LAB 80041-5(LO 80.0-97.0 FL INC) MCV Normal 90.8 LAB 61855-6(LO 142-424 thou/mcL INC) Normal Platelet Count 277 LAB 90018-8(LO 39.0-49.0 % INC) Low Hematocrit 37.5 LAB 52302-2(LO 11.0-14.8 % INC) RDW Normal 13.1 LAB 718-7(LOIN 13.5-17.5 gm/dL C) Low Hemoglobin 13.1 LAB 02708-9(LO 4.30-5.70 million/mcL INC) Low Red Blood Cell 4.13 Count LAB 43511-1(LO 32.0-36.0 gm/dL INC) MCHC Normal 35.0 LAB 18062-1(LO 27.0-34.0 Picograms INC) MCH Normal 31.7 LAB 59817-0(LO 4.6-10.2 thou/mcL INC) WBC Normal Count 10.0 Performed By: #### 77624-4 #### [facility] [address], [place] Observed: 01/29/2018 Status: F Source: [facility] CULTURE BLOOD 2:36 AM HEALTH SYSTEM REPOSITORY [facility] Microbiology PROCEDURE: Culture Blood SOURCE: Blood BODY SITE: COLLECTED DATE/TIME: 01/29/2018 02:36 EDT RECEIVED DATE/TIME: 01/29/2018 02:36 EDT START DATE/TIME: 01/29/2018 02:36 EDT FREE TEXT SOURCE: BLOOD INTERFACED REPORTS Final Report [] Verified Date/Time/Personnel: 02/03/2018 13:37 EDT CONTRIBUTOR_SYSTEM, CO_PN NO GROWTH AT 5 DAYS Preliminary Report [] Verified Date/Time/Personnel: 01/30/2018 02:10 EDT CONTRIBUTOR_SYSTEM, CO_PN NO GROWTH. CULTURE IN PROGRESS. POSITIVE CULTURES WILL BE PHONED TO THE UNIT/FLOOR. Performed By: #### 600-7 #### [facility] [address], [place] URINALYSIS WITH Collected: 01/29/2018 Status: F Source: [facility] MICROSCOPIC AUTOMATIC 2:19 AM HEALTH SYSTEM WITH REFLEX REPOSITORY TYPE CODE TESTS RESULT OUT OF RANGE REFERENCE UNITS LAB 5778-6(LO YELLOW INC) Normal Color Urine YELLOW LAB 5792-7(LO NORMAL INC) Glucose Abnormal Urine 50MG/DL LAB 5804-0(LO NEGATIVE INC) Protein Abnormal Urine 30MG/DL LAB 5797-6(LO NEGATIVE INC) Ketones Abnormal Urine 20MG/DL LAB 26967-7(L NEGATIVE OINC) Normal Nitrite Urine NEGATIVE LAB 5767-9(LO CLEAR INC) Normal Appearance Urine CLEAR LAB 5811-5(LO 1.002-1.030 INC) Normal Specific [place] Urine 1.018 LAB 5799-2(LO NEGATIVE INC) Normal Leukocyte Esterase Urine NEGATIVE LAB 5803-2(LO 4.5-8.0 INC) Normal pH Urine 5.0 LAB 84012-7(L NEGATIVE OINC) Normal Bilirubin Urine NEGATIVE LAB 5794-3(LO NEGATIVE INC) Normal Blood Urine NEGATIVE LAB 04342-5(L NORMAL OINC) Normal Urobilinogen NORMAL Urine Performed By: #### 15229-6, 38645-2 #### [facility], [address] [place], [place] URINALYSIS MICROSCOPIC Collected: 01/29/2018 Status: F Source: [facility] 2:19 AM HEALTH SYSTEM REPOSITORY TYPE CODE TESTS RESULT OUT OF RANGE REFERENCE UNITS LAB 30445-0(ABRAHAM 0-5 /hpf NC) Normal RBC Urine 1 LAB 5821-4x1(LO 0-5 /hpf INC) Normal WBC Urine 3 LAB 5796-8(LOIN /lpf C) Normal Hyaline Casts 5 Performed By: #### 68105-7, 09596-4 #### [facility], [address] [place], [place] DRUG ABUSE SCREEN 8 Collected: 01/29/2018 Status: F Source: [facility] URINE 2:19 AM HEALTH SYSTEM REPOSITORY TYPE CODE TESTS RESULT OUT OF RANGE REFERENCE UNITS LAB 14758-9(LO INC) Abnormal Opiate POSITIVE Scr Urine Result Comment: Confirmatory testing available upon request. INTERPRETATION TABLE FOR SAP8 URINE DRUG SCREEN PRESUMPTIVE POSITIVE CUT-OFF VALUES (NG/DL) TEST POSITIVE CUT-OFF VALUES(NG/ML) Amphetamine 1000 Barbiturate 200 Benzodiazepines 200 Cannabinoids 50 Cocaine 300 Methadone 300 Opiates 300 Oxycodone 100 All drugs identified should be considered presumptive positives. Presumptive Positive Screens can be confirmed by a reference lab upon request. ALL DRUG SCREEN RESULTS ARE FOR MEDICAL PURPOSES ONLY. LAB 76115-4(LOINC) Oxycodone Scr Urine Normal NEGATIVE LAB 01052-5(LOINC) Tetrahydrocannabinoid Scr Normal Urine NEGATIVE LAB 57859-3(LOINC) Benzodiazepine Scr Urine Normal NEGATIVE LAB 46849-5(LOINC) NEGATIVE Methadone Scr Urine Normal NEGATIVE LAB 74453-6(LOINC) Barbiturates Scr Urine Normal NEGATIVE LAB 52900-4(LOINC) Amphetamine Scr Urine Normal NEGATIVE LAB 78149-4(LOINC) Cocaine Scr Urine Normal NEGATIVE Performed By: #### 94713-7 #### [facility] [address] [place], [place] GLUCOSE POCT Collected: 01/29/2018 Status: F Source: [facility] (UPLOADED) 12:15 AM HEALTH SYSTEM REPOSITORY TYPE CODE TESTS RESULT OUT OF REFERENCE UNITS RANGE LAB 2340-8(LOIN 70-110 mg/dL C) High Glucose 253 POCT-LAB Result Comment: Treatment ranges and critical values established by Patient Care Services. All follow-up actions were taken by Patient Care Services. Performed By: #### 2430-8 #### [facility] POINT OF CARE CONSULTATION Observed: 01/29/2018 Status: F Source: [facility] 12:00 AM HEALTH SYSTEM REPOSITORY DICTATED BY:CHRISTINE FLORES MD SERVICE DATE:01/29/2018 HISTORY OF PRESENT ILLNESS: The patient is a 57-year-old male who presents with altered mental status. His came home and found him sitting on the toilet. She states he has been sitting there for some time. It appeared that he had fallen down the stairs and broken his glasses. His family tells me he has had difficulty with ambulation and poor balance. This is from likely cervical stenosis. Studies demonstrate a small r ight subdural hematoma and possible sinus thrombosis and we were asked to see him. PAST MEDICAL HISTORY: 1. Hypertension. 2. Hyperlipidemia. 3. Diabetes. PAST SURGICAL HISTORY: 1. Cervical stenosis surgery 3 years ago at [place]. 2. Carpal tunnel surgery. ALLERGIES: No known drug allergies. MEDICATIONS: 1. Vicodin. 2. Carvedilol. 3. Docusate. 4. Hydrochlorothiazide. 5. Insulin. 6. Losartan. FAMILY AND SOCIAL HISTORY: Have all been reviewed and located in the hospital EMR note. FULL REVIEW OF SYSTEMS: Unable to obtain from the patient because of his mental status. SOCIAL HISTORY: Drinks alcohol occasionally. Previously he was a heavy smoker. PHYSICAL EXAMINATION: GENERAL: The patient was awaken. By report he is less drowsy than he was when he first came in. He is still confused. He does converse however. HEENT: His pupils are 3 mm. Face is symmetric. NEUROLOGIC: He followed all commands for me. Upper extremity strength is 5/5 strength in deltoids, biceps, triceps, and fingers. Negative drift. Lower extremity strength is 5/5 strength, hip flexors , knee extensors, foot dorsiflexion and plantarflexion. Negative clonus. REVIEWED STUDIES: Labs: Opiates were positive. White blood count 10.8, platelet count 261, and sodium 138. Studies Reviewed: ____ shows a small subdural hematoma 5 mm in thickness. It is in the right temporal region. Subsequent scan showed a small amount of blood in the left occipital horn. There was a q uestion of a sinus thrombosis, but MRV did not demonstrate that. He had an MRI of his neck, which demonstrated cervical stenosis. He also had a CT of his lumbar spine which demonstrated lumbar stenosis. IMPRESSION: 1. Subdural hematoma, status post trauma. 2. Lumbar stenosis. 3. Cervical stenosis. RECOMMENDATIONS: In terms of the trauma we are following for any enlargement of the hematoma. This is nonsurgical at this time. No ICP monitor needed. Follow with good clinical exam. Ultimately he will likely need a cervical decompression, possibly a lumbar decompression. We would follow this up on an outpatient basis. I did palpate his spine. No signs of fracture. We also did a flexion and extension cervical spine, although there is some shifting associated with his fusion it does not appear to have any active instability. ONEIDA QUISPE Birthdate: 1960 #: [id number] D/01/29/2018 17:51:26 T/01/29/2018 18:24:13 VOICE JOB ID:[id number] Felicity Rodriguez thanks you for the opportunity to care for your patient. DID: [id number] CBC Collected: 01/28/2018 Status: F Source: [facility] 11:43 PM HEALTH SYSTEM REPOSITORY TYPE CODE TESTS RESULT OUT OF REFERENCE UNITS RANGE LAB 10079-1(LO 32.0-36.0 gm/dL INC) MCHC Normal 34.7 LAB 73636-1(LO 27.0-34.0 Picograms INC) MCH Normal 31.4 LAB 96796-8(LO 4.30-5.70 million/mcL INC) Red Normal Blood Cell 4.33 Count LAB 66375-4(LO 4.6-10.2 thou/mcL INC) WBC High Count 10.8 LAB 72245-0(LO 6.2-12.1 FL INC) MPV Normal 7.4 LAB 47469-3(LO 80.0-97.0 FL INC) MCV Normal 90.5 LAB 75208-1(LO 142-424 thou/mcL INC) Normal Platelet Count 261 LAB 84009-5(LO 39.0-49.0 % INC) Normal Hematocrit 39.2 LAB 55951-0(LO 11.0-14.8 % INC) RDW Normal 13.0 LAB 718-7(LOIN 13.5-17.5 gm/dL C) Normal Hemoglobin 13.6 Performed By: #### 89739-1 #### [facility] [address], [place] XR ABDOMEN 1 VIEW Observed: 01/28/2018 Status: F Source: [facility] 11:06 PM HEALTH SYSTEM REPOSITORY EXAMINATION TYPE: XR Abdomen 1 View DATE OF EXAM : 01/28/2018 11:06 PM HISTORY: Line Placement COMPARISON: NONE FINDINGS/IMPRESSION: Nasogastric tube in the stomach. The inferior half of the abdomen is not included in the [id number]. The visualized bowel gas pattern is unremarkable. Jenners thanks you for the opportunity to care for your patient. Workstation ID: [id number] - [id number] FINAL REPORT Dictated By: Chris Cramer MD 01/28/2018 23:46 Assigned Physician: Chris Cramer MD Reviewed and Electronically Signed By: Chris Cramer MD 01/28/2018 23:47 Transcribed by: SHAYNE 01/28/2018 23:46 Technologist: MURPHY PROTHROMBIN TIME Collected: 01/28/2018 Status: F Source: [facility] 9:38 PM HEALTH SYSTEM REPOSITORY TYPE CODE TESTS RESULT OUT OF RANGE REFERENCE UNITS LAB 07211-4(ABRAHAM NC) Normal INR 1.08 Result Comment: The recommended therapeutic INR range for most cardiac indications is 2.0-3.0. For high intensity therapy(ie.mechanical heart valves), the recommended range is 2.5-3.5. LAB 5902-2(LOINC) 9.3-12.4 Sec Normal Prothrombin Time (PT) 12.3 Performed By: #### 5902-2, 3173-2 #### [facility] [address], [place] PARTIAL THROMBOPLASTIN Collected: 01/28/2018 Status: F Source: [facility] TIME (APTT) 9:38 PM HEALTH SYSTEM REPOSITORY TYPE CODE TESTS RESULT OUT OF REFERENCE UNITS RANGE LAB 10933-5(LO 23.6-35.3 Sec INC) Partial Normal Thromboplastin 24.5 (aPTT) Result Comment: PLEASE NOTE: OF June: Performed By: #### 5902-2, 3173-2 #### [facility] [address], [place] PLATELET FUNCTION Collected: 01/28/2018 Status: F Source: [facility] ASSAY 9:38 PM HEALTH SYSTEM REPOSITORY TYPE CODE TESTS RESULT OUT OF RANGE REFERENCE UNITS LAB 18477-1(LO 69-173 Sec INC) Platelet Normal Function Analysis 96 Epinephrine Result Comment: Results consistent with normal Platelet function. Performed By: #### 63480-7 #### [facility] [address], [place] PROGRESS NOTES Observed: 01/28/2018 Status: F Source: [facility] 8:50 PM HEALTH SYSTEM REPOSITORY Patient: ONEIDA QUISPE MRN: [id number] Age: 57 years Sex: Male : 1960 Associated Diagnoses: None Author: Norma BRADY , Luan Looney TRAUMA - ATTENDING ADDENDUM Date/Time: 01/28/2018 @ 1800 Supervising Physician Comments Documentation By: Attending Physician. The patient was seen/examined by the surgical team and myself. See dictation for more details. ACUTE PROBLEMS: 1)Headache 2)Subdural hematoma 3)Loss of consciousness PLANS: Admit to Pain control Consult neurosurgery Clem Green MD [phone] GLUCOSE POCT Collected: 01/28/2018 Status: F Source: [facility] (UPLOADED) 8:36 PM [facility]ALTH SYSTEM REPOSITORY TYPE CODE TESTS RESULT OUT OF REFERENCE UNITS RANGE LAB 2340-8(LOIN 70-110 mg/dL C) High Glucose 184 POCT-LAB Result Comment: Treatment ranges and critical values established by Patient Care Services. All follow-up actions were taken by Patient Care Services. Performed By: #### 2430-8 #### [facility] CT L-SPINE W/O Observed: 01/28/2018 Status: F Source: [facility] CONTRAST 8:04 PM [facility]ALTH SYSTEM REPOSITORY EXAMINATION TYPE: CT T-Spine w/o Contrast, CT L-Spine w/o Contrast COMPLETED DATE: 01/28/2018 8:03 PM CLINICAL HISTORY: Decision Support; T-spine fx, traumatic. Patient fell COMPARISON: None PROCEDURE: Axial, sagittal and coronal images were acquired. THORACIC SPINE FINDINGS: There is mild dextroscoliosis. The alignment is normal. There is disc narrowing and endplate sclerotic changes at T7-T8, T8-T9, T10-T11, and T11-T12. No fractures. There is foraminal narrowing from T8-T9 through T11-T12. No canal stenosis. IMPRESSION: 1. No acute findings 2. Moderate degenerative changes with foraminal narrowing in the lower thoracic spine LUMBAR SPINE FINDINGS: There is mild dextroscoliosis. There is disc narrowing with endplate sclerotic changes at L2-L3. There is disc narrowing and vacuum disc phenomenon at L2-L3 and L3-L4. There is disc narrowing and par tial fusion of the disc space at L4-L5. No fractures. L1-L2: Disc bulge without canal or foraminal narrowing L2-L3: Disc bulge asymmetric to the left with degenerative facet and hypertrophic flavum. Sac measures 1 cm. Mild to moderate foraminal narrowing on the left L3-L4: Disc bulge and degenerative facet changes with hypertrophic ligamentum flavum. Sac measures 9 mm. Moderate foraminal narrowing more pronounced on the left L4-L5: Degenerative facet changes with moderate foraminal narrowing more pronounced on the right due to osteophytes L5-S1: Disc bulge and degenerative facet changes with moderate foraminal narrowing IMPRESSION: 1. No acute findings 2. Moderate degenerative changes resulting in mild canal stenosis at L3-L4 and moderate foraminal narrowing from L2-L3 through L5-S1 Felicity Rodriguez thanks you for the opportunity to care for your patient. Workstation ID: [id number] - [id number] FINAL REPORT Dictated By: Melisa Diop MD 01/28/2018 20:19 Assigned Physician: Melisa Diop MD Reviewed and Electronically Signed By: Melisa Diop MD 01/28/2018 20:30 Transcribed by: SHAYNE 01/28/2018 20:19 Technologist: COLEMAN DAMIAN CT T-SPINE W/O Observed: 01/28/2018 Status: F Source: [facility] CONTRAST 8:03 PM [facility] SYSTEM REPOSITORY EXAMINATION TYPE: CT T-Spine w/o Contrast, CT L-Spine w/o Contrast COMPLETED DATE: 01/28/2018 8:03 PM CLINICAL HISTORY: Decision Support; T-spine fx, traumatic. Patient fell COMPARISON: None PROCEDURE: Axial, sagittal and coronal images were acquired. THORACIC SPINE FINDINGS: There is mild dextroscoliosis. The alignment is normal. There is disc narrowing and endplate sclerotic changes at T7-T8, T8-T9, T10-T11, and T11-T12. No fractures. There is foraminal narrowing from T8-T9 through T11-T12. No canal stenosis. IMPRESSION: 1. No acute findings 2. Moderate degenerative changes with foraminal narrowing in the lower thoracic spine LUMBAR SPINE FINDINGS: There is mild dextroscoliosis. There is disc narrowing with endplate sclerotic changes at L2-L3. There is disc narrowing and vacuum disc phenomenon at L2-L3 and L3-L4. There is disc narrowing and par tial fusion of the disc space at L4-L5. No fractures. L1-L2: Disc bulge without canal or foraminal narrowing L2-L3: Disc bulge asymmetric to the left with degenerative facet and hypertrophic flavum. Sac measures 1 cm. Mild to moderate foraminal narrowing on the left L3-L4: Disc bulge and degenerative facet changes with hypertrophic ligamentum flavum. Sac measures 9 mm. Moderate foraminal narrowing more pronounced on the left L4-L5: Degenerative facet changes with moderate foraminal narrowing more pronounced on the right due to osteophytes L5-S1: Disc bulge and degenerative facet changes with moderate foraminal narrowing IMPRESSION: 1. No acute findings 2. Moderate degenerative changes resulting in mild canal stenosis at L3-L4 and moderate foraminal narrowing from L2-L3 through L5-S1 Felicity Rodriguez thanks you for the opportunity to care for your patient. Workstation ID: [id number] - [id number] FINAL REPORT Dictated By: Melisa Diop MD 01/28/2018 20:19 Assigned Physician: Melisa Diop MD Reviewed and Electronically Signed By: Melisa Diop MD 01/28/2018 20:30 Transcribed by: SHAYNE 01/28/2018 20:19 Technologist: COLEMAN DAMIAN CBC Collected: 01/28/2018 Status: F Source: [facility] 6:32 PM [facility] REPOSITORY TYPE CODE TESTS RESULT OUT OF REFERENCE UNITS RANGE LAB 16785-4(LO 32.0-36.0 gm/dL INC) MCHC Normal 34.4 LAB 29233-1(LO 142-424 thou/mcL INC) Normal Platelet Count 278 LAB 63468-3(LO 27.0-34.0 Picograms INC) MCH Normal 31.2 LAB 30808-4(LO 39.0-49.0 % INC) Normal Hematocrit 42.0 LAB 75308-5(LO 4.30-5.70 million/mcL INC) Red Normal Blood Cell 4.64 Count LAB 21981-7(LO 11.0-14.8 % INC) RDW Normal 12.9 LAB 26434-4(LO 4.6-10.2 thou/mcL INC) WBC High Count 12.2 LAB 02631-7(LO 6.2-12.1 FL INC) MPV Normal 7.3 LAB 62321-1(LO 80.0-97.0 FL INC) MCV Normal 90.5 LAB 718-7(LOIN 13.5-17.5 gm/dL C) Normal Hemoglobin 14.5 Performed By: #### 53006-3 #### [facility] [address], [place] GFRAA Collected: 01/28/2018 Status: F Source: [facility] 6:32 PM [facility] REPOSITORY TYPE CODE TESTS RESULT OUT OF RANGE REFERENCE UNITS LAB 85329-7(LO mL/min INC) GFR Normal Estimated >60 Result Comment: The MDRD equation has not been validated for those over 70 years, women, patients with serious co-morbid conditions, or with extremes of body size, muscle mass of nutritional status. Performed By: #### 77327-3, 04966-7t6, 33506-7 #### [facility] [address], [place] GFRBB Collected: 01/28/2018 Status: F Source: [facility] 6:32 PM [facility] REPOSITORY TYPE CODE TESTS RESULT OUT OF RANGE REFERENCE UNITS LAB 73339-4(LO mL/min INC) GFR Normal Estimated Non >60 Performed By: #### 04058-8, 74888-0p5, 90183-4 #### [facility] [address], [place] BASIC METABOLIC PANEL Collected: 01/28/2018 Status: F Source: [facility] 6:32 PM [facility] REPOSITORY TYPE CODE TESTS RESULT OUT OF RANGE REFERENCE UNITS LAB 92189-7(ABRAHAM 8.9-10.3 mg/dL NC) Normal Calcium Total 9.3 LAB 16234-2(ABRAHAM 8-20 mg/dL NC) High BUN 27 LAB 93510-4(ABRAHAM 6.0-18.0 mMol/L NC) Normal Anion Gap 13.0 Result Comment: PLEASE NOTE:The calculated Anion Gap(AGAP) does not include Potassium. LAB 2160-0(LOINC) 0.60-1.30 mg/dL Normal Creatinine 1.15 LAB 2951-2(LOINC) 136-145 mMol/L Normal Sodium Level 138 LAB 2823-3(LOINC) 3.6-5.1 mMol/L Normal Potassium Level 4.5 LAB 40988-2(LOINC) 70-110 mg/dL High Glucose Level 172 LAB 2028-9(LOINC) 22-32 mMol/L Normal Carbon Dioxide Level 23 LAB 2075-0(LOINC) 98-107 mMol/L Normal Chloride Level 102 Performed By: #### 33470-6, 27070-3b0, 02393-5 #### [facility] [address], [place] ALCOHOL (ETHANOL) Collected: 01/28/2018 Status: F Source: [facility] 6:32 PM [facility]ALTH SYSTEM REPOSITORY Order Comment: If not already obtained in the trauma bay / ED TYPE CODE TESTS RESULT OUT OF RANGE REFERENCE UNITS LAB 5643-2(LOIN 0.00-0.00 gm/dL C) Normal Alcohol <0.01 (Ethanol) Level Performed By: #### 34917-3, 87665-5g3, 11592-6 #### [facility] [address], [place] Observed: 01/28/2018 Status: F Source: [facility] BLOOD TYPE ABO AND 6:32 PM HEALTH SYSTEM RH(D) REPOSITORY ANEG Performed By: #### 882-1 #### [facility] [address], [place] Observed: 01/28/2018 Status: F Source: [facility] ANTIBODY SCREEN 6:32 PM HEALTH SYSTEM INTERPRETATION REPOSITORY NEGATIVE Performed By: #### 27271-6 #### [facility] [address], [place] CREATINE KINASE (CK) Collected: 01/28/2018 Status: F Source: [facility] 6:32 PM [facility] REPOSITORY TYPE CODE TESTS RESULT OUT OF RANGE REFERENCE UNITS LAB 2157-6(ABRAHAM 21-232 Units/L NC) Normal Creatine 116 Kinase Random Performed By: #### 2157-6 #### [facility] [address], [place] CT C-SPINE W/O Observed: 01/28/2018 Status: F Source: [facility] CONTRAST 6:27 PM [facility] SYSTEM REPOSITORY EXAMINATION TYPE: CT Head w/o Contrast, CT Maxillofacial w/o Contrast, CT C-Spine w/o Contrast DATE OF EXAM ORDERED: 01/28/2018 6:27 PM HISTORY: Decision Support; Head trauma, minor, GCS>=13, high clinical risk, initial exam, patient fell COMPARISON: NONE TECHNIQUE: Axial images were obtained. Scanning was performed through the brain without IV contrast. FINDINGS: There is partial opacification of the mastoid air cells on the left. There is a nondisplaced fracture through the squamous temporal bone on the left. There is a subdural hematoma overlying the right hemisphere. In the right frontal region this measures 5 mm in thickness. This extends from the right temporal region into the convexity. There is some extension along the falx and tentorium as well. There is mass effect with 3 mm of shift to the left. Ventricular size is normal. IMPRESSION: 1. Nondisplaced fracture of the left squamous temporal bone 2. There is a subdural hematoma overlying the right hemisphere with a small amount of shift to the left. FACIAL BONE CT FINDINGS: The fracture of the left squamous temporal bone is again demonstrated. No other fractures are seen. There is significant sinus opacification most pronounced within the sphenoid and ethmoid sinuses. No fluid levels. IMPRESSION: 1. Nondisplaced fracture through the squamous temporal bone on the left 2. Large amount of paranasal sinus disease CERVICAL SPINE CT FINDINGS: There has been anterior fusion at C3-C4. There are 2 mm anterior subluxation of C4 on C5. There is disc narrowing at C4-C5 and C5-C6. No fractures. C2-C3: Mild foraminal narrowing bilaterally with general facet changes C3-C4: Mild foraminal narrowing on the left with degenerative facet changes C4-C5: Moderate foraminal narrowing with degenerative facet changes C5-C6: Posterior osteophytes. Sac measures 1 cm. Moderate foraminal narrowing C6-C7: Mild foraminal narrowing on the right C7-T1: Mild foraminal narrowing bilaterally IMPRESSION: 1. No acute findings 2. Moderate degenerative changes with foraminal narrowing most pronounced C4-C5 and C5-C6 3. Stable postoperative changes Felicity Rodriguez thanks you for the opportunity to care for your patient. Workstation ID: [id number] - [id number] FINAL REPORT Dictated By: Melisa Diop MD 01/28/2018 18:28 Assigned Physician: Melisa Diop MD Reviewed and Electronically Signed By: Melisa Diop MD 01/28/2018 18:44 Transcribed by: SHAYNE 01/28/2018 18:28 Technologist: RODRICK CT MAXILLOFACIAL W/O Observed: 01/28/2018 Status: F Source: [facility] CONTRAST 6:27 PM [facility] SYSTEM REPOSITORY EXAMINATION TYPE: CT Head w/o Contrast, CT Maxillofacial w/o Contrast, CT C-Spine w/o Contrast DATE OF EXAM ORDERED: 01/28/2018 6:27 PM HISTORY: Decision Support; Head trauma, minor, GCS>=13, high clinical risk, initial exam, patient fell COMPARISON: NONE TECHNIQUE: Axial images were obtained. Scanning was performed through the brain without IV contrast. FINDINGS: There is partial opacification of the mastoid air cells on the left. There is a nondisplaced fracture through the squamous temporal bone on the left. There is a subdural hematoma overlying the right hemisphere. In the right frontal region this measures 5 mm in thickness. This extends from the right temporal region into the convexity. There is some extension along the falx and tentorium as well. There is mass effect with 3 mm of shift to the left. Ventricular size is normal. IMPRESSION: 1. Nondisplaced fracture of the left squamous temporal bone 2. There is a subdural hematoma overlying the right hemisphere with a small amount of shift to the left. FACIAL BONE CT FINDINGS: The fracture of the left squamous temporal bone is again demonstrated. No other fractures are seen. There is significant sinus opacification most pronounced within the sphenoid and ethmoid sinuses. No fluid levels. IMPRESSION: 1. Nondisplaced fracture through the squamous temporal bone on the left 2. Large amount of paranasal sinus disease CERVICAL SPINE CT FINDINGS: There has been anterior fusion at C3-C4. There are 2 mm anterior subluxation of C4 on C5. There is disc narrowing at C4-C5 and C5-C6. No fractures. C2-C3: Mild foraminal narrowing bilaterally with general facet changes C3-C4: Mild foraminal narrowing on the left with degenerative facet changes C4-C5: Moderate foraminal narrowing with degenerative facet changes C5-C6: Posterior osteophytes. Sac measures 1 cm. Moderate foraminal narrowing C6-C7: Mild foraminal narrowing on the right C7-T1: Mild foraminal narrowing bilaterally IMPRESSION: 1. No acute findings 2. Moderate degenerative changes with foraminal narrowing most pronounced C4-C5 and C5-C6 3. Stable postoperative changes Felicity Rodriguez thanks you for the opportunity to care for your patient. Workstation ID: [id number] - [id number] FINAL REPORT Dictated By: Melisa Diop MD 01/28/2018 18:28 Assigned Physician: Melisa Diop MD Reviewed and Electronically Signed By: Melisa Diop MD 01/28/2018 18:44 Transcribed by: SHAYNE 01/28/2018 18:28 Technologist: [facility] CT HEAD W/O CONTRAST Observed: 01/28/2018 Status: F Source: [facility] 6:27 PM [facility] REPOSITORY EXAMINATION TYPE: CT Head w/o Contrast, CT Maxillofacial w/o Contrast, CT C-Spine w/o Contrast DATE OF EXAM ORDERED: 01/28/2018 6:27 PM HISTORY: Decision Support; Head trauma, minor, GCS>=13, high clinical risk, initial exam, patient fell COMPARISON: NONE TECHNIQUE: Axial images were obtained. Scanning was performed through the brain without IV contrast. FINDINGS: There is partial opacification of the mastoid air cells on the left. There is a nondisplaced fracture through the squamous temporal bone on the left. There is a subdural hematoma overlying the right hemisphere. In the right frontal region this measures 5 mm in thickness. This extends from the right temporal region into the convexity. There is some extension along the falx and tentorium as well. There is mass effect with 3 mm of shift to the left. Ventricular size is normal. IMPRESSION: 1. Nondisplaced fracture of the left squamous temporal bone 2. There is a subdural hematoma overlying the right hemisphere with a small amount of shift to the left. FACIAL BONE CT FINDINGS: The fracture of the left squamous temporal bone is again demonstrated. No other fractures are seen. There is significant sinus opacification most pronounced within the sphenoid and ethmoid sinuses. No fluid levels. IMPRESSION: 1. Nondisplaced fracture through the squamous temporal bone on the left 2. Large amount of paranasal sinus disease CERVICAL SPINE CT FINDINGS: There has been anterior fusion at C3-C4. There are 2 mm anterior subluxation of C4 on C5. There is disc narrowing at C4-C5 and C5-C6. No fractures. C2-C3: Mild foraminal narrowing bilaterally with general facet changes C3-C4: Mild foraminal narrowing on the left with degenerative facet changes C4-C5: Moderate foraminal narrowing with degenerative facet changes C5-C6: Posterior osteophytes. Sac measures 1 cm. Moderate foraminal narrowing C6-C7: Mild foraminal narrowing on the right C7-T1: Mild foraminal narrowing bilaterally IMPRESSION: 1. No acute findings 2. Moderate degenerative changes with foraminal narrowing most pronounced C4-C5 and C5-C6 3. Stable postoperative changes Felicity Rodriguez thanks you for the opportunity to care for your patient. Workstation ID: [id number] - [id number] FINAL REPORT Dictated By: Melisa Diop MD 01/28/2018 18:28 Assigned Physician: Melisa Diop MD Reviewed and Electronically Signed By: Melisa Diop MD 01/28/2018 18:44 Transcribed by: SHAYNE 01/28/2018 18:28 Technologist: RODRICK XR PELVIS 1-2 VIEWS Observed: 01/28/2018 Status: F Source: [facility] 6:12 PM [facility] REPOSITORY EXAMINATION TYPE: XR Pelvis 1-2 Views DATE OF EXAM : 01/28/2018 6:12 PM HISTORY: Trauma, COMPARISON: None FINDINGS: There is mild narrowing of the left hip. No fractures or dislocations. IMPRESSION: 1. Mild degenerative changes of left hip. No acute findings. Felicity Rodriguez thanks you for the opportunity to care for your patient. Workstation ID: [id number] - [id number] FINAL REPORT Dictated By: Melisa Diop MD 01/28/2018 18:24 Assigned Physician: Melisa Diop MD Reviewed and Electronically Signed By: Melisa Diop MD 01/28/2018 18:26 Transcribed by: SHAYNE 01/28/2018 18:24 Technologist: GHASSAN LEMUS XR CHEST 1 VIEW Observed: 01/28/2018 Status: F Source: [facility] 6:11 PM [facility] REPOSITORY EXAMINATION TYPE: XR Chest 1 View DATE OF EXAM: 01/28/2018 6:11 PM HISTORY: Trauma, COMPARISON: NONE FINDINGS: No focal airspace opacity, pneumothorax or significant pleural effusion. The cardiomediastinal silhouette is within normal limits. Low lung volumes. IMPRESSION: No acute intrathoracic abnormality. Felicity Rodriguez thanks you for the opportunity to care for your patient. Workstation ID: [id number] - [id number] FINAL REPORT Dictated By: Gonzalez Hardy MD 01/28/2018 18:30 Assigned Physician: Gonzalez Hardy MD Reviewed and Electronically Signed By: Gonzalez Hardy MD 01/28/2018 18:31 Transcribed by: SHAYNE 01/28/2018 18:30 Technologist: ALLAN FERRELL ED PHYSICIAN NOTES Observed: 01/28/2018 Status: F Source: [facility] 6:11 PM [facility] SYSTEM REPOSITORY Patient: ONEIDA QUISPE MRN: [id number] Age: 57 years Sex: Male : 1960 Associated Diagnoses: None Author: Isaiah Milan MD History of Present Illness The patient is a middle-aged male arrives as a level II trauma found by his at the bottom of the steps with blood at the scene and head trauma. Found to have a GCS of 13 complaining of nausea and v omiting upon arrival to the trauma suite. Will answer to his name confused slow to respond but moving all 4 extremities immobilized in a hard cervical collar History of diabetes despite glucose at the scene within normal range last seen normal this morning he does not of focal deficits suggest a stroke which is included in differential with head trauma he me ets criteria as a level II trauma given his last normal this morning he is not a candidate for thrombolytic therapy and stroke but I suspect more traumatic injury Social history: Unknown Review of Systems Unable to obtain due to critical condition. Health Status Allergies: No allergies have been recorded.. Past Medical/ Family/ Social History Medical history No active or resolved past medical history items have been selected or recorded. Past Medical History Problem List No active or resolved problems charted Surgical history: No active procedure history items have been selected or recorded.. Family history: No family history items have been selected or recorded.. Social history: Social and Psychosocial Habits No Data Available . Physical Examination Vital Signs TRAUMA ALERT EXAM: The examination was done in conjunction with a multidisciplinary trauma team. Refer to scanned documents in the electronic medical record as necessary for additional findings discovered during the more extensive secondary survey performed by Trauma Services. VITALS: Reviewed on patient arrival. Refer to scanned trauma documentation. CONSTITUTIONAL: Immobilized on the trauma with cervical collar in place. EYES: PERRL. EOMI grossly. EARS: External ears appear normal without clear or bloody drainage. NOSE: Nose appears normal. NECK: Trachea midline. RESPIRATORY: Normal chest excursion with respiration, no stridor. CARDIOVASCULAR: Regular rhythm. No cyanosis. GASTROINTESTINAL: No obvious contusion to the abdominal wall. MUSCULOSKELETAL: There are no gross deformities noted in all four extremities. NEUROLOGICAL: Awake, alert and oriented. Conversant. Spontaneously moving all 4 extremities. INTEGUMENTARY: Warm and dry. No diaphoresis. Medical Decision Making Trauma NO Airway Intervention: I saw and evaluated the patient. A trauma alert was called. The patient's admitting complaint was of such acuity that it required the coordination of a skilled team for evaluation and stabilization. Because of the nature of the patient's injuries, I was responsible for and monitored the patient's airway status. The patient's airway was intact and the patient was conversant. No airway intervention was required at this time and the trauma team assumed the patient's care. Please refer to the trauma service evaluation for additional care and outcome of this patient. The patient's presenting pulse oximetry was % on supplemental oxygen. This was interpreted as normal. The labs were ordered and reviewed by the attending physician. I have reviewed the preliminary interpretation for the following test(s): Reexamination/ Reevaluation Reevaluation patient's mental status and GCS unchanged head of the bed at [address] Diop notified me of subdural hematoma and temporal bone fracture I notify trauma surgery resident a neuros urgery consult was placed he will be admitted Impression and Plan IMPRESSION: 1. Closed head injury with acute subdural hematoma 2. Altered mental status 3. Temporal bone fracture 4. Basic Information HISTORY AND PHYSICAL Observed: 01/28/2018 Status: C Source: [facility] 5:48 PM [facility] SYSTEM REPOSITORY DICTATED BY: JASSON DUKES MD DATE OF ADMISSION: 01/28/2018 TRAUMA HISTORY AND PHYSICAL Jasson Dukes MD dictating for Dr. Luan Green This was a level II trauma. HISTORY OF PRESENT ILLNESS: The patient not able to provide a clear history, history obtained from EMS. Patient presents for fall down a flight of stairs, positive loss of consciousness, EMS reported stable vital signs. EMS repor ts that the states she has left her house at 8 a.m. and returned about 1730, found him sitting on toilet confused. At the bottom of the stairwell was a small pool of blood. EMS reports a GCS of 13 . Patient reports 10/10 pain in his head. Glucose was 104. History provided by PMHx HTN, DM, spinal stenosis PSHx: For spinal stenosis NKA Social quit smoking 3 years ago was a heavy smoke, occasional ETOH, no illegal drugs. Works as [employer]. INITIAL VITAL SIGNS: Temperature was 96.8, pulse 98, respiratory rate 16, BP is 142/80, SpO2 is 94% on room air. PRIMARY SURVEY: Airway was patent. Breathing was spontaneous, unlabored. GCS was 4, 4, 6 for 14 and verbal was 4. SECONDARY SURVEY: HEENT: Pupils are equal and reactive, 3 mm on the left and 3 mm on the right. Head had a left posterior tissue swelling, Facial stability. NECK: C-collar was in place. Trachea was midline. CHEST: Heart rate regular, stable and symmetric without crepitus. Clear to auscultation. PELVIS: Stable and nontender. EXTREMITIES: left posterior shoulder abrasion. Bilateral shoulder equal range of motion. Decreased strength in extremities bilaterally. 2+ pulses in all 4 extremities. Extremities neurovascularly intact. ABDOMEN: Soft, nontender and nondistended without guarding. GENITOURINARY: No blood at the meatus. OTHER FINDINGS: Dark brown mucus around mouth, nasal abrasion. Patient was having tremors, reported being cold. Laboratory Studies are pending for CBC, BMP, UA, EtOH, CPK, (cbc, bmp unremarkable at this time will trend H/H) IMAGING: X-ray chest, x-ray pelvis, CT head, CT spine, CT face, left shoulder film. Imaging is pending. This has been Trauma for Dr. Green. Please see his addendum for any corrections or updates. ONEIDA QUISPE Birthdate: 1960 DID: [id number] D/01/28/2018 18:39:59 T/01/28/2018 19:45:41 VOICE JOB ID: [id number] Felicity Rodriguez thanks you for the opportunity to care for your patient. chest x-ray negative, pelvis x-ray negative, ct facial (Nondisplaced fracture through the squamous temporal bone on the left), CT Spine C,T,L negative for acute pathology, CT Head shows right 5 mm subdu ral with 3 mm [place]. Neurosurgery consulted MRI spine pending, patient admitted to neuro ICU ENDOCRINOLOGY VISIT Observed: 10/16/2017 Status: F Source: [place] REPORT 10:36 AM [facility] REPOSITORY [facility] [address] [place] [address] OFFICE VISIT Date of Service: 10/15/17 MR#: [id number] Acct: [id number] Name: YUNIOR QUISPE Rep #: [id number] : 1960 Provider: Kaye Gauthier NP Age/Sex: 57/M Location: [facility] [place] Status: Signed HPI History of present illness Yunior Quispe is a 57 year old male who presents for follow up of diabetes type 1. Diagnosed at age 7. Continues on Novoloin 70/30 twice daily; 23 units in am and 20 units in pm. Has sliding scale humalog for ISF. Reports BG readings have been doing fairly well. Still has issue with BG dropping in the afternoon around 11am to 2pm, usually after he takes correction. He is now varying the time he wakes and when he takes his morning insulin. Pt denies difficulty with injections or self monitoring of BG. Denies any signs of infection or irritation at site of injections. Reports taking insulin as directed Has resumed taking his BP medications. BP 136/80. At time of visit: -Pt denies symptoms of hypertensive emergency (CP,SOB,CURRIE, or blurred vision) and hypotension(dizziness or lightheadedness) -Pt denies symptoms of hypoglycemia ( sweaty, confusion, anxiety, tremor, hunger, palpitations) and hyperglycemia ( polydipsia, polyuria) -Pt denies potential medication adverse effect with exception of erectile dysfunction. Hypoglycemia Aware of hypoglycemia: When awake Able to self treat low BG: Yes Frequent low Blood sugar: afternoons around 4-5pm Has supply of glucagon: Yes Diet Healthy Eats three meals daily and [facility] snacks Does carb count. Glucose control symptoms: Reports daytime hypoglycemia Weight and fatigue symptoms: Denies snoring Cardiopulmonary symptoms: Denies chest pain at rest, dyspnea on exertion, lightheadedness or myalgias GI symptoms: Denies constipation, diarrhea, nausea/dyspepsia or vomiting Skin and extremity symptoms: Reports erectile dysfunction Other symptoms: Denies change in vision or blurry vision Pertinent visit history: Denies recent visit to ER or recent 911 calls Self monitoring: Yes Glucometer type: relion, occ truetrack Fasting BG range: 125 Before dinner BG range: 60-70 Lowest blood glucose since last visit: 60 Diabetes education in past year: Yes Glucose testing: demonstrates correct use of meter ID bracelet: has a bracelet Physical activity: regular Exam Const General: comfortable, no acute distress, well hydrated Nutritional Appearance: average body habitus Orientation: oriented x3 HENMT Head: normal to inspection, atraumatic Ears: hearing grossly normal bilaterally Nose: no nasal discharge Mouth: oral mucosae normal, moist mucous membranes Teeth and gingiva: dentition normal Eyes General: appearance normal, both eyes and all related structures Conjunctivae: conjunctivae normal Sclera: sclerae normal Pupils: PERRL Neck Neck: normal visual inspection Neck mass: No Chest Chest palpation AND inspection: deferred Resp Effort AND Inspection: normal respiratory effort, able to speak in complete sentences, symmetric chest movement Auscultation: Bilateral: Clear to Auscultation Cardio Rate: regular rate Rhythm: regular rhythm Heart Sounds: S1 normal, S2 normal GI Inspection: normal to inspection Auscultation: normal bowel sounds Palpation: soft, no guarding Musc Thoracic/Lumbar Spine: thoracic and lumbar spine normal to inspection Skin General: no rashes or lesions noted Wounds: no wounds Diabetic Foot Pulses: L dorsalis pedis pulse: normal Monofilament test: Left foot: abnormal, Right foot: abnormal Neuro General: gait normal Cognition: normal cognition Speech: speech normal Motor: muscle tone normal throughout Extrem General: full ROM, normal to inspection, pedal edema Psych Appearance: grossly normal Mood: congruent mood Affect: normal affect Speech and Movement: speech and movement normal Attitude: cooperative Thought Process: normal Thought Content: normal Judgment: good Weight and fatigue symptoms: Denies snoring Cardiopulmonary symptoms: Denies chest pain at rest, dyspnea on exertion, lightheadedness or myalgias GI symptoms: Denies constipation, diarrhea, nausea/dyspepsia or vomiting Skin and extremity symptoms: Denies erectile dysfunction Other symptoms: Reports change in vision; denies blurry vision Intake Vital Signs10/15/17 Height 5 ft 8 in 10/15/17 Weight: 187 lb 8 oz 10/15/17 Body Mass Index (BMI) 28.5 10/15/17 Blood Pressure 136/80 10/15/17 Blood Pressure Location Lt popliteal 10/15/17 Blood Pressure Position Sitting Intake Visit Reasons: Diabetes Patient Account Specialist Required: No Accompanied by: Self Is patient in pain?: No Allergies acetaminophen [From Vicodin] Allergy (Severe, Verified 10/15/17 09:06) Unknown hydrocodone [From Vicodin] Allergy (Severe, Verified 10/15/17 09:06) Unknown Medications insulin syringe-needle U-100 1 mL 31 gauge x 10/29 See Dose Instructions .ROUTE .MEDSUPPLY #270 ea 05/21/17 [Rx Confirmed 10/15/17] blood sugar diagnostic strips See Dose Instructions .ROUTE .MEDSUPPLY #20 ea 06/25/17 [History Confirmed 10/15/17] carvedilol 6.25 mg tablet 6.25 mg PO QDAY tab 06/25/17 [History Confirmed 10/15/17] chromium picolinate 1,000 mcg tablet 1,000 mcg PO QDAY tab 06/25/17 [History Confirmed 10/15/17] insulin lispro (U-100) 100 unit/mL subcutaneous solution See Label Instructions SC TID ml 06/25/17 [History Confirmed 10/15/17] hydrochlorothiazide 12.5 mg capsule 12.5 mg PO QDAY 07/02/17 [History Confirmed 10/15/17] insulin human U-100 NPH-regulr 70-30 mix 100 unit/mL subcutaneous susp See Label Instructions SC BID ml 07/02/17 [History Confirmed 10/15/17] losartan 100 mg tablet 100 mg PO QDAY 07/02/17 [History Confirmed 10/15/17] omeprazole magnesium 20 mg tablet,delayed release 20 mg PO QDAY tab 07/02/17 [History Confirmed 10/15/17] ranitidine 150 mg capsule 150 mg PO BID cap 07/02/17 [History Confirmed 10/15/17] insulin syringe-needle U-100 0.5 mL 31 gauge x 10/29 See Dose Instructions .ROUTE .MEDSUPPLY #270 ea 10/15/17 [Rx Confirmed 10/15/17] Nurse's Note: blood sugars : low : 26 high : 300+ PFSH Medical History Back problem (Acute) Carpal tunnel syndrome (Acute) Diabetes type 1, controlled (Acute) Kidney stones (Acute) Low calcium levels (Acute) Neuropathy (Acute) HTN (hypertension) (Chronic) Surgical History H/O colonoscopy (Acute) Social History Smoking Status: Former smoker second hand exposure: No alcohol intake: current substance use type: does not use ROS Const Constitutional: No anorexia, body ache, chills, fatigue, fever(s), frequent falls, decreased energy, malaise, night sweats, weakness, weight change, sleep problems, abnormal sleep pattern, change in appetite, other, headache(s), snoring or excessive sweating Eyes Eyes: Positive for change in vision; no blurry vision, double vision, discharge, dry eyes, bulging eyes, floaters, visual disturbances, eye pain, light sensitivity, spots in vision, tunnel vision or other ENT ENT: No abnormal hearing, ear pain, ear discharge, ear pressure, hearing loss, tinnitus, dizziness/vertigo, balance problems, nosebleed/epistaxis, nasal congestion, nasal obstruction, nose pain, sinus pressure, sinus pain, nasal discharge, post nasal drip, headache(s), facial pain, dental pain, dry mouth, bad breath, hoarseness, lip swelling, mouth lesions, mouth pain, sore throat, tongue swelling, throat swelling, other, difficulty swallowing or neck pain Resp Respiratory: No cough, change in phlegm color, chest congestion, excessive phlegm production, hemoptysis, pain on inspiration, shortness of breath, pain with cough, snoring, stridor, wheezing or other Cardio Cardiology: No chest pain at rest, chest pain with exertion, leg pain with exertion, excessive sweating, shortness of breath, dyspnea on exertion, generalized swelling, irregular heart rhythm, lightheadedness, orthopnea, radiating jaw, neck or arm pain, fast heart rate, slow heart rate, palpitations or other Gastro GI: No abdominal pain, belching, bloating, change in bowel habits, change in stool character, coffee ground emesis, constipation, cramping, diarrhea, heartburn, difficulty swallowing, feeling full early, excessive flatus, incontinent of stools, Vomiting blood/hematemesis, blood in stool, loose stools, Black,tarry stools, nausea/dyspepsia, pain with swallowing, vomiting or other Genitourinary Male: No difficulty urinating, burning urination, painful urination, urinary incontinence, urinary frequency, urinary urgency, urinary hesitancy, urinary retention, blood in urine, Frequent nighttime urination/ nocturia, post void dribbling, suprapubic fullness, side pain, sexual problems, genital lesions, genital itching, erectile dysfunction, penile discharge, difficulty with ejaculations, blood in semen, scrotal swelling, testicle lump, testicle pain or other Musc Musculoskeletal: No abnormal walking, joint pain, back pain, deformity, joint swelling, limited range of motion, loss of height, muscle cramps, muscle weakness, decreased muscle mass, body aches, neck pain, numbness, radiating pain into limb, stiffness, tingling or other Skin Skin: No acne, hair loss, change in hair, nail changes, boil, change in skin color, dry skin, redness, excessive hair growth, yellowing of the skin, lesions, itching, rash, skin pain, skin ulcer, sores, skin swelling, wounds or other Breast Breast: No other Neuro Neurology: No frequent falls, weakness, visual disturbances, abnormal hearing, headache(s), abnormal walking, numbness or tingling Psych Psychiatric: No abnormal sleep pattern, No change in appetite Endo Endocrine: No fatigue, other or excessive sweating Aller/Imm Allergy/Immunologic: No lip swelling, tongue swelling, throat swelling, wheezing or itchy eyes Assessment AND Plan 1. Type 1 diabetes mellitus with microalbuminuria E10.29; R80.9 Plan Consider penile injections or penile pump for erectile dysfunction Consider lowering am dose by 1-2 units for summer if low Bg noted. RTC 3 months Labs today Plan Detail Other Orders Orders: Other Medications New: insulin syringe-needle U-100 (BD Insulin Syringe UltraAs directed E10.65 -Fine) insulin syringe-needle U-100 (BD Insulin Syringe UltraUses three daily with insulin E10.65 -Fine) Additional Comments 1. Please schedule follow up in 3 months. 2. Lab work one week before appointment. 3. Discussed importance of regular exercise and recommend starting or continuing a regular exercise program for good health. 4. The patient was encouraged to lose weight for good health 5. The importance of monitoring blood sugar regularly was reviewed. 6. The importance of monitoring the HBA1c level regularly was reviewed. 7. The importance of prper foot care and regularly checking feet to prevent sores and loss of limbs was reviewed. 8. The importance of keeping BP at or below 130/80 to prevent stroke, heart attacks, kidney failure, blindness was reviewed. Spent approximately 30 minutes with patient with over 50% of time spent in discussion and counseling regarding medication adjustment, symptoms and treatment of hypoglycemia, diet adherence, and checking BG before driving. 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; R80.9 Diabetes mellitus type: type 1 Diabetes mellitus complication detail: with microalbuminuria Diabetes mellitus complication status: with kidney complications Time Spent (min) 30 10/16/17 1036 <Electronically signed by Kaye CASEY> Date Kaye [facility] Cosigner Signature: Date (if applicable) CC: COMPREHENSIVE METABOLIC Collected: 10/15/2017 Status: F Source: [place] 9:57 AM [facility] REPOSITORY TYPE CODE TESTS RESULT OUT OF RANGE REFERENCE UNITS LAB L501.0100 74-106 mg/dL High GLU 107 Result Comment: Fasting Glucose result from 100 to 125 mg/dL suggests IMPAIRED HOMEOSTASIS per A.D.A. criteria. Please note revised GLUCOSE reference range effective 2017. LAB L501.1000 7-18 mg/dL High BUN 20 LAB L501.1100 0.70-1.30 mg/dL Normal CREAT,SERUM 1.17 Result Comment: The validity of the calculated GFR AND GFRAA in patients over 70 years has not been determined. Clinical correlation is essential. LAB L501.1110 >60 mL/min Normal EST GFR 69 Result Comment: Non- GFR Calc LAB L501.1115 >60 mL/min Normal EST GFR - AA 83 Result Comment: GFR Calc LAB L501.1300 10-20 RATIO Normal BUN/CRE 17.1 LAB L501.1500 6.4-8.2 g/dL T Normal PROT 6.9 LAB L501.1800 3.2-5.0 g/dL Normal ALB 3.9 LAB L501.1950 2.2-4.2 g/dL Normal GLOB 3.0 LAB L501.2000 0.9-2.4 RATIO Normal A/G 1.3 LAB L501.2200 8.5-10.1 mg/dL CA Normal 9.9 LAB L501.4100 15-37 U/L Normal AST 17 LAB L501.4305 45-117 U/L Normal ALK P 54 LAB L501.4405 16-61 U/L Normal ALT 22 LAB L501.4600 0.20-1.00 mg/dL T Normal BILI 0.50 LAB L501.5300 136-145 mmol/L NA Normal 139 LAB L501.5600 3.5-5.1 mmol/L K Normal 4.3 LAB L501.5900 98-107 mmol/L CL Normal 106 LAB L501.6100 21.0-32.0 mmol/L Normal CO2 28.0 LAB L501.6200 5-15 Normal GAP 5 Performed By: #### L500.4050 #### [facility] [address] [place], [address] MICROALB:CREAT Collected: 10/15/2017 Status: F Source: [place] RATIO,RANDOM UR 9:57 AM [facility] REPOSITORY TYPE CODE TESTS RESULT OUT OF RANGE REFERENCE UNITS LAB L501.1200 NO RANGE EST. mg/dL Normal UR CREAT 85.80 LAB L502.0500 NO RANGE EST. mg/L Normal 125.0 MICROALBUMIN ,UR LAB L502.0600 <30 mg/g CRE mg/g CRE High 145.7 MALB:CREAT Performed By: #### L502.0250, L501.9985 #### [facility] [address] [place], [address] HEMOGLOBIN A1C Collected: 10/15/2017 Status: F Source: [place] 9:57 AM [facility] REPOSITORY TYPE CODE TESTS RESULT OUT OF RANGE REFERENCE UNITS LAB L501.9985 4.2-6.3 % High HGB A1C 7.8 Performed By: #### L502.0250, L501.9985 #### [facility] [address] [place], [address] ALLERGIES ALLERGIES DATE TYPE / CODE NAME / CODE REACTION SEVERITY SOURCE 07/01/2018 Drug hydrocodone/ Unknown [facility] Allergy/4160 [id number](R Hospital (SNOMED XNORM) Repository CT) 07/01/2018 Drug acetaminophe Unknown [facility] Allergy/4160 n/[id number] Hospital [address](SNOMED (RXNORM) Repository CT) Drug VICODIN/0001 NAUSEA Moderate Cosme Pomerene Allergy/4160 2376(RXNORM) (Severity [facility] [address]503(SNOMED Modifier) Repository CT) (Qualifier Value) ENCOUNTERS ENCOUNTERS ADMIT/DISCHARGE ACCOUNT NUMBER ADMITTING ENCOUNTER LOCATION SOURCE CLASS 07/01/2018/07/01/19 [id number] Ambulatory BMSBuilding: [place] 19 [facility] Repository 06/30/2018 [id number] Sarina HERNANDEZ [facility] SHERLY NOVA [facility] 06/15/2018/06/15/20 [id number] Ambulatory BMSBuilding: [place] [facility] Repository 05/26/2018 [id number] Ambulatory Rhonda [facility] ding:LAB Repository 05/26/2018/05/26/20 [id number] Ambulatory BMSBuilding: [place] 18 [facility] Repository 05/15/2018/05/15/20 [id number] MARY, Sarina [place] [address] [facility]ERLY NOVA [facility] 05/08/2018/05/08/20 [id number] LUIS E TONY Emergency Buildin[address] [place] [address] Room: ERBed: [facility] Repository 04/15/2018/04/15/20 [id number] MARY, Sarina [place] [address] SHERLY NOVA [facility] Repository :PMRE 04/09/2018/04/09/20 [id number] Ambulatory [address] [facility] [facility] 03/09/2018 [id number] Ambulatory Building:[facility] Repository 02/26/2018/02/27/20 [id number] Ambulatory BMSBuilding: [place] 18 [facility] Repository 02/24/2018 [id number] JEANNETTE, Ambulatory [facility] Repository 02/19/2018/02/20/20 [id number] Ambulatory [address] West[address] Repository :[facility] 02/19/2018/02/20/20 [id number] Amb[address] West[address] Repository :[facility] 02/12/2018/02/13/20 [id number] Ambulatory [address] West[address] Repository :[facility] 02/10/2018 [id number] Ambulatory Building:P[facility] Repository 02/10/2018/02/11/20 [id number] Ambulatory [facility] [place]ository :[place] 02/09/2018/02/10/20 [id number] Ambulatory [facility] 18 [place] [place]ository :[place] 02/07/2018/02/08/20 [id number] Ambulatory [address] West[address] [place] :[place] 02/04/2018/02/05/20 [id number] Ambulatory [address] WestBuilding Repository :[facility] 01/28/2018/02/04/20 [id number] PAGE, Inpatient [place] [address] [facility] Repository :NPUERoom: [id number]: 10/15/2017 [id number] Ambulatory Rhonda [facility] ding:LAB Repository 10/15/2017/10/16/19 [id number] Ambulatory BMSBuilding: [place] 18 [facility] Repository 09/29/2017 [id number] Ambulatory BMSBuilding: [place] [facility] Repository PAYERS PAYERS ENCOUNTER GUARANTOR PAYER SUBSCRIBER SOURCE 07/01/2018 YUNIOR R Primary YUNIOR R Rhonda [id number] SECOND Insurance:MEDICARE MILLERDOB: [facility] PATRICIOEPATADELANEYALA, PART A BPolicy Number: [id number] [facility] [place] [address]Gip: [id number] Repository Date:2018-06-15 () 07/01/2018 Secondary YUNIOR R Rh[place] Insurance:MEDICAIDPoli MILLERDOB: [facility] cy Number: [id number] Hospital [id number] Repository Date:2018-06-15 07/01/2018 Tertiary NOT GIVENUNK [place] Insurance:SELF PAY [facility] Number: Effective Repository Date:2018-06-29 06/30/2018 YUNIOR Primary DIANELYS MILLERDOB: Jenn[place] MILLERDOB: Insurance:MEDICARE [id number] Hospital PART APolicy Number: Repository 2ND Effective [facility], Date:2018-01-14 [place] [id number] Name:Tim [id number]: () () 06/30/2018 Secondary DIANELYS MILLERDOB: Jenners Insurance:MEDICARE [id number] Hospital PART BPolicy Number: Repository Effective Date:2018-01-145767-56-68Gdhv Name:B 06/30/2018 Tertiary YUNIOR Felicity Rodriguez Insurance:MEDICAID MILLERDOB: [facility] OHIOPolicy Number: [id number] Repository [id number] Date:2018-01-141822-01-07Qozq Name:B 06/15/2018 YUNIOR R Primary YUNIOR R [place] [id number] 2ND Insurance:MEDICARE MILLERDOB: Community [place], PART A BPolicy Number: [id number] Hospital of [facility] [place] [address]Vsg: [id number] Repository Date:2018-05-26 () 06/15/2018 Secondary YUNIOR R [place] Insurance:MEDICAIDPoli MILLERDOB: Community cy Number: [id number] Hospital [id number] Repository Date:2018-05-26 06/15/2018 Tertiary NOT GIVENUNK [place] Insurance:SELF PAY [facility] Number: Effective Repository Date:2018-06-15 05/26/2018 YUNIOR R Primary YUNIOR R [place] [id number] Insurance:MEDICARE MILLERDOB: [place], PART A BPolicy Number: [id number] Hospital of [facility] [place] [address]Ucy: [id number] Repository Date:2018-05-26 () 05/26/2018 Secondary YUNIOR R [place] Insurance:MEDICAIDPoli MILLERDOB: Community cy Number: [id number] Hospital [id number] Repository Date:2018-05-26 05/26/2018 Tertiary NOT GIVENUNK [place] Insurance:SELF PAY Community [facility] Hospital Number: Effective Repository Date:2018-05-26 05/26/2018 YUNIOR R Primary YUNIOR R [place] [id number] Insurance:MEDICARE MILLERDOB: [place], PART A BPolicy Number: [id number] Hospital of [facility] [place] [address]Ylb: [id number] Repository Date:2018-02-26 () 05/26/2018 Secondary YUNIOR R [place] Insurance:MEDICAIDPoli MILLERDOB: Community cy Number: [id number] Hospital [id number] Repository Date:2018-02-26 05/26/2018 [facility]ertiary [facility] [place] Insurance:SELF PAY [facility] INS[facility]ANCEVa [facility] Hospital Number: Effective Repository Date:2018-05-26 05/15/2018 YUNIOR Primary DIANELYS MILLERDOB: [place] MILLERDOB: Insurance:MEDICARE [id number] [facility] PART APolicy Number: Repository 2ND Effective [facility], Date:2018-01-14 [place] [id number] Name: [id number]: () () 05/15/2018 Secondary DIANELYS MILLERDOB: Felicity Rodriguez Insurance:MEDICARE [id number] Health System PART BPolicy Number: Repository Effective Date:2018-01-140677-61-21Tarc Name:B 05/15/2018 Tertiary YUNIOR Rodriguez Insurance:MEDICAID MILLERDOB: [facility] Number: [id number] Repository [id number] Date:[id number] Name:B 05/08/2018 YUNIOR Primary DIANELYS R Cosme Pravin MILLERDOB: Insurance:MEDICARE MILLERDOB: [facility] [id number] Hospital 2ND Number: [address] Repository [facility], [id number] [place] [address]Wza: Date:Plan Name:[facility] [id number] () 05/08/2018 Secondary YUNIOR R Cosme Pomerene Insurance:MEDICAID MILLERDOB: [facility] [id number] Hospital Number: 2ND Repository [id number] [place]VE[place] Date:Plan Name:[id number] 04/15/2018 YUNIOR Primary DIANELYS QUISPEDOB: Felicity IBRAHIMB: Insurance:MEDICARE [id number] Hospital PART APolicy Number: Repository 2ND Effective [place], Date:2018-01-14 [place] [id number] Name:B [id number]: (HP) (WP) 04/15/2018 Secondary DIANELYS MILLERDOB: [place] Insurance:MEDICARE [id number] [facility] PART BPolicy Number: Repository Effective Date:2018-01-148103-93-15Ynlr Name:B 04/15/2018 Tertiary YUNIOR Rodriguez Insurance:MEDICAID [facility] Number: [id number] Repository [id number] Date:2018-01-140156-39-58Bjjp Name:B 04/09/2018 YUNIOR Primary DIANELYS QUISPEDOB: Felicity Rodriguez [facility] Insurance:MEDICARE [id number] Hospital PART APolicy Number: Repository 2ND Effective [place], Date:2018-01-1431Plan Name:B [id number]: (HP) (WP) 04/09/2018 Secondary DIANELYS QUISPEDOB: Felicity Rodriguez Insurance:MEDICARE [id number] [facility] PART BPolicy Number: Repository Effective Date:2018-01-141060-15-14Fmck Name:B 04/09/2018 [facility]ICAID [facility] [place] [facility] Number: [id number] Repository [id number] Date:2018-01-144148-07-56Dlaq Name:B 03/09/2018 ONEIDA [facility]ICARE [facility]: [place] AND BPolicy Number: [id number] [facility] [id number] [facility], Date:8112-81-70Stsh [place], [place] Repository [place] [address]Veu: Name:[facility] [id number]: [phone] (HP) (HP) 03/09/2018 Secondary [facility] Insurance:MEDICAIDPoli MILLERDOB: [place] cy Number: [id number] [place] [address] [id number] [facility] Center Date:5952-09-91Dvmq [place], [place] Repository Name:[facility] [id number]: () 02/26/2018 YUNIOR R Primary YUNIOR R Rhonda [id number] [id number] Insurance:MEDICARE MILLERDOB: [facility], PART A BPolicy Number: [id number] Hospital of [facility] [place] [address]Jpa: [id number] Repository Date:2018-02-17 () 02/26/2018 Secondary YUNIOR R [place] Insurance:MEDICAIDPoli MILLERDOB: [facility] cy Number: [id number] [facility] [id number] Repository Date:2018-02-17 02/26/2018 Tertiary NOT GIVENUNK [place] Insurance:SELF PAY [facility] Number: Effective Repository Date:2018-02-26 02/24/2018 YUNIOR Primary YUNIOR R Cosme Bruno MILLERDOB: Insurance:MEDICAID MILLERDOB: [facility] [id number] Hospital 2ND Number: 8 TWP Repository [facility], [id number] [address]Ggq: Date:Plan Name:[facility] [id number] () 02/10/2018 [facility] MILLERDOB: Insurance:MEDICARE A MILLERDOB: [place] AND BPolicy Number: [id number] [facility] [id number] [facility], Date:[id number] [place], [place] Repository [place] [address]Ocr: Name:[facility] [address]Yvw: [phone] (HP) (HP) 02/10/2018 Secondary [place] [facility] Insurance:MEDICAIDPoli EULESSDOB: [place] cy Number: [id number] [facility] [id number] [facility] Center Date:[id number] [place], [place] Repository Name:[place] [id number]: (HP) 01/28/2018 YUNIOR Primary DIANELYS QUISPEDOB: Fleicity Rodriguez EULESSDOB: Insurance:MEDICARE [id number] [facility] [id number]: PART APolicy Number: Repository Effective (HP)Tel: (000) Date:2018-01-14 000-0000 () [id number] Name:B 01/28/2018 Secondary DIANELYS QUISPEDOB: [place] Insurance:MEDICARE [id number] Hospital PART BPolicy Number: Repository Effective Date:[id number] Name:B 01/28/2018 Tertiary DIANELYS QUISPEDOB: [place] Insurance:MEDICAID [id number] HospitalPolicy [facility]: Repository [id number] Date:[id number] Name:B 10/15/2017 YUNIOR R Primary YUNIOR [id number] 2ND Insurance:MEDICARE [place]DOB[place] A BPolicy Number: [id number] [place] [address]Jxy: [id number] Repository Date:2017-10-15 (HP) 10/15/2017 Secondary YUNIOR [place] Insurance:MEDICAIDPoli MILLERDOB: [facility] cy Number: [id number] Hospital [id number] Repository Date:2017-10-15 10/15/2017 Tertiary NOT GIVENUNK [place] Insurance:SELF PAY [facility] Hospital Number: Effective Repository Date:2017-10-15 10/15/2017 YUNIOR R Primary YUNIOR [id number] 2ND Insurance:MEDICARE [place]ERDOB[place] BPolicy Number: [id number] [facility] [place] [address]Fch: [id number] Repository Date:2017-09-30 () 10/15/2017 Secondary YUNIRO [place] Insurance:MEDICAIDPoli MILLERDOB: Community cy Number: [id number] Hospital [id number] Repository Date:2017-09-30 10/15/2017 Tertiary NOT GIVENUNK [place] Insurance:SELF PAY [facility] Number: Effective Repository Date:2017-09-30 09/29/2017 YUNIOR R Primary YUNIOR [id number] 2ND Insurance:MEDICAIDPoli MILLERDOB: [facility] [place] Number: [id number] Hospital [facility] [place] [address]Avk: [id number] Repository Date:2017-07-02 () 09/29/2017 Secondary NOT GIVENUNK [place] Insurance:SELF PAY [facility] Number: Effective Repository Date:2017-07-02
== END ==
PROVIDERS: Family Provider Family Medicine; PCP Family Medicine; Referring Provider Nurse Practitioner; Visit Provider Nurse Practitioner
DX: E10.65 Type 1 diabetes mellitus with hyperglycemia (principal)
CPT/HCPCS: 36415; 80061; 82043; 82570; 83036; 84439; 84481